=== PATIENT | female | born 1945 | race Caucasian/White ===

== ENCOUNTER → 2018-02-10 | Outpatient (CLI) | payer MEDICARE ==
--- NOTE | 2018-02-10 15:15 | US ---
EXAMINATION TYPE: US carotid duplex BILAT DATE OF EXAM: 02/10/2018 COMPARISON: NONE CLINICAL HISTORY: I25.10 Coronary artery disease,I10 Hypertension. No hx of TIA or stroke. HTN contr olled with meds. Bilateral mesh inserted in CCA's per patient x 3 years ago due to blockage. EXAM MEASUREMENTS: RIGHT: Peak Systolic Velocity (PSV) cm/sec ----- Right CCA: 61.0 ----- Right ICA: 49.6 ----- Right ECA: 66.9 ICA/CCA ratio: 0.8 RIGHT: End Diastole cm/sec ----- Right CCA: 22.6 ----- Right ICA: 24.3 ----- Right ECA: 9.8 LEFT: Peak Systolic Velocity (PSV) cm/sec ----- Left CCA: 56.6 ----- Left ICA: 86.6 ----- Left ECA: 61.4 ICA/CCA ratio: 1.5 LEFT: End Diastole cm/sec ----- Left CCA: 7.8 ----- Left ICA: 24.5 ----- Left ECA: 0.0 VERTEBRALS (direction of flow): Right Vertebral: Antegrade Left Vertebral: Antegrade Rhythm: Normal No elevated velocities or significant stenosis. Bilateral wall thickening. Plaque seen in bilateral CCA, bulbs and right ECA. IMPRESSION: No elevated velocities or significant stenosis. Bilateral wall thickening. Plaque seen in bilateral CCA, bulbs and right ECA. Criteria for Assigning % of Stenosis / Diameter reduction (Estimation based on the indirect measurements of the internal carotid artery velocities (ICA PSV). 1. Normal (no stenosis)=ICA PSV < 125 cm/s: ratio < 2.0: ICA EDV<40 cm/s. 2. Less than 50% stenosis=ICA PSV < 125 cm/s: ratio < 2.0: ICA EDV<40 cm/s. 3. 50 to 69% stenosis=ICA PSV of 125 to 230 cm/s: ration 2.0 ? 4.0: ICA EDV 40-100 cm/s. 4. Greater than 70% stenosis to near occlusion= ICA PSV > 230 cm/s: ratio > 4.0: ICA EDV > 100 cm/s. 5. Near occlusion= ICA PSV velocities may be low or undetectable: variable ratio and ICA EDV. 6. Total occlusion=unable to detect flow.
== END | disposition home or self-care (01) ==
LOC: RADECHMAIN 14:01
PROVIDERS: ATTEND Internal Medicine Cardiovascular Disease
DX: I65.23 Occlusion and stenosis of bilateral carotid arteries (principal); I25.10 Atherosclerotic heart disease of native coronary artery without angina pectoris; I10 Essential (primary) hypertension
CPT/HCPCS: 93880

== ENCOUNTER → 2018-02-15 | Outpatient (CLI) | payer MEDICARE ==
--- NOTE | 2018-02-15 15:23 | ECHOF ---
Referral Reason:I25.10 Coronary artery disease,I10 Hypertension MEASUREMENTS -------- HEIGHT: 170.2 cm WEIGHT: 84.8 kg BP: IVSd: 1.3 cm (0.6 - 1.1) LVIDd: 3.9 cm (3.9 - 5.3) LVPWd: 1.2 cm (0.6 - 1.1) IVSs: 2.1 cm LVIDs: 1.5 cm LVPWs: 2.2 cm Ao Diam: 2.7 cm (2.0 - 3.7) AV Cusp: 0.9 cm (1.5 - 2.6) LA Diam: 3.3 cm (2.7 - 3.8) MV EXCURSION: 12.495 mm (> 18.000) MV EF SLOPE: 35 mm/s (70 - 150) EPSS: 1.0 cm MV E Jair: 1.55 m/s MV DecT: 312 ms MV A Jair: 1.32 m/s MV E/A Ratio: 1.17 AV maxP.17 mmHg AV meanP.22 mmHg AR PHT: 119 ms RAP: 5.00 mmHg RVSP: 17.04 mmHg FINDINGS -------- Sinus rhythm. This was a technically good study. The left ventricular size is normal. There is mild concentric left ventricular hypertrophy. Overa ll left ventricular systolic function is normal with, an EF between 55 - 60 %. The right ventricle is normal in size and function. The left atrium is normal in size. The right atrium is normal in size. Aortic valve is trileaflet and is moderately thickened. There is mild aortic regurgitation. There is moderate aortic stenosis present. Peak/mean gradient across the Aortic Valve is 31.17mmHg / 19. 22mmHg. The peak and mean MV gradients are 19.39mmHg 5.47mmHg as measured by doppler. Astq-ro-rddmhwbh mitr al stenosis. Trace tricuspid regurgitation present. The right ventricular systolic pressure, as measured by Dopp ler, is 17.04mmHg. Pulmonic valve appears structurally normal. The aortic root size is normal. Normal inferior vena cava with normal inspiratory collapse consistent with estimated right atrial pre ssure of 5 mmHg. The pericardium is normal. CONCLUSIONS -------- 1. Sinus rhythm. 2. This was a technically good study. 3. The left ventricular size is normal. 4. There is mild concentric left ventricular hypertrophy. 5. Overall left ventricular systolic function is normal with, an EF between 55 - 60 %. 6. The right ventricle is normal in size and function. 7. The left atrium is normal in size. 8. The right atrium is normal in size. 9. Aortic valve is trileaflet and is moderately thickened. 10. There is mild aortic regurgitation. 11. There is moderate aortic stenosis present. 12. Peak/mean gradient across the Aortic Valve is 31.17mmHg / 19.22mmHg. 13. The peak and mean MV gradients are 19.39mmHg 5.47mmHg as measured by doppler. 14. Lnre-bz-sxjonxyy mitral stenosis. 15. Trace tricuspid regurgitation present. 16. The right ventricular systolic pressure, as measured by Doppler, is 17.04mmHg. 17. Pulmonic valve appears structurally normal. 18. The aortic root size is normal. 19. Normal inferior vena cava with normal inspiratory collapse consistent with estimated right atrial pressure of 5 mmHg. 20. The pericardium is normal. [employer] OFFICER: Britt Strickland RDCS
== END | disposition home or self-care (01) ==
LOC: RADECHMAIN 12:45
PROVIDERS: ATTEND Internal Medicine Cardiovascular Disease
DX: I35.0 Nonrheumatic aortic (valve) stenosis (principal); I05.0 Rheumatic mitral stenosis; I25.10 Atherosclerotic heart disease of native coronary artery without angina pectoris; I10 Essential (primary) hypertension; I65.29 Occlusion and stenosis of unspecified carotid artery
CPT/HCPCS: 93306

== ENCOUNTER → 2018-04-11 | Outpatient (CLI) | payer MEDICARE ==
[~2018-04-11] MED LIST: HEPARIN SODIUM,PORCINE 5,000 UNIT/ML 1 ML VIAL SQ ONE
--- NOTE | 2018-04-11 11:46 | MM ---
Reason for exam: additional evaluation requested from prior study. Last mammogram was performed 1 year and 1 month ago. History: Patient is postmenopausal. Family history of breast cancer in mother at age 62. Physical Findings: Nurse did not find any significant physical abnormalities on exam. MG 3D Diag Mammo W/Cad BRENNEN Bilateral CC and MLO view(s) were taken. Prior study comparison: March 03, 2017, mammogram. March 02, 2016, mammogram. The breast tissue is heterogeneously dense. This may lower the sensitivity of mammography. Benign appearing bilateral calcifications. No suspicious abnormality. No significant new findings when compared with previous films. These results were verbally communicated with the patient and result sheet given to the patient on 04/11/18. ASSESSMENT: Benign, BI-RAD 2 RECOMMENDATION: Routine screening mammogram of both breasts in 1 year.
== END | disposition home or self-care (01) ==
LOC: RADMAMWWP 10:42
PROVIDERS: ATTEND Surgery
DX: R92.8 Other abnormal and inconclusive findings on diagnostic imaging of breast (principal)
CPT/HCPCS: 77066; G0279; 77062

== ENCOUNTER → 2018-04-20 | Outpatient (CLI) | payer MEDICARE | END | disposition home or self-care (01) | DX: Z53.9 Procedure and treatment not carried out, unspecified reason (principal) ==

== ENCOUNTER → 2018-04-24 | Outpatient (CLI) | payer MEDICARE ==
--- NOTE | 2018-04-24 14:47 | XR ---
EXAMINATION TYPE: XR foot complete LT DATE OF EXAM: 04/24/2018 COMPARISON: NONE HISTORY: 72-year-old female pain and superficial foreign body left foot, calcaneus area TECHNIQUE: 3 views FINDINGS: No acute fracture, subluxation, or dislocation seen. Tiny plantar and posterior calcaneal spurs. No r etained radiopaque foreign body seen. Mild degenerative change first MTP joint. IMPRESSION: No retained radiopaque foreign body identified.
== END | disposition home or self-care (01) ==
LOC: RADXRMAIN 11:57
PROVIDERS: ATTEND Podiatrist Foot Surgery
DX: S90.852A Superficial foreign body, left foot, initial encounter (principal)

== ENCOUNTER 2018-12-13 07:32 | Day surgery (SDC) | payer MEDICARE ==
[~2018-12-13 07:32] MED LIST changes: -HEPARIN SODIUM,PORCINE 5,000 UNIT/ML 1 ML VIAL SQ ONE; +LACTATED RINGERS 1,000 ML IV SCH
[2018-12-13 08:02] VITALS: TEMP 97
[2018-12-13 08:24] LABS: Glucose,Whole Blood 148 mg/dL (75-99)
[2018-12-13] MEDS ORDERED: PROPOFOL 10 MG/ML 20 ML VIAL IV ONE (08:35)
--- NOTE | 2018-12-13 08:45 | P.GSHP ---
History of Present Illness H&P Date: 12/13/18 CHIEF COMPLAINT: Colon screen HISTORY OF PRESENT ILLNESS: The patient is a 73-year-old female who presents for colon screen. Lower endoscopy was offered for further evaluation and management. PAST MEDICAL HISTORY: Please see list. PAST SURGICAL HISTORY: Please see list. MEDICATIONS: Please see list. ALLERGIES: Please see list. SOCIAL HISTORY: No illicit drug use FAMILY HISTORY: No reports of Crohn disease or ulcerative colitis. REVIEW OF ORGAN SYSTEMS: CONSTITUTIONAL: No reports of fevers or chills. PHYSICAL EXAM: VITAL SIGNS: Stable GENERAL: Well-developed pleasant in no acute distress. HEENT: No scleral icterus. Extraocular movements grossly intact. Moist buccal mucosa. NECK: Supple without lymphadenopathy. CHEST: Unlabored respirations. Equal bilateral excursions. CARDIOVASCULAR: Regular rate and rhythm. Distal 2+ pulses. ABDOMEN: Soft, nontender, nondistended. MUSCULOSKELETAL: No clubbing, cyanosis, or edema. ASSESSMENT: 1. Colon screen. PLAN: 1. Recommend proceeding with a lower endoscopy Past Medical History Past Medical History: Coronary Artery Disease (CAD), Diabetes Mellitus, Hyperlipidemia, Hypertension, Myocardial Infarction ([place]) Additional Past Medical History / Comment(s): hx ulcers, hx polyps, silent [place] Last Myocardial Infarction Date:: 2008 History of Any Multi-Drug Resistant Organisms: None Reported Past Surgical History: Coronary Bypass/CABG, Heart Catheterization, Tubal Ligation Additional Past Surgical History / Comment(s): triple bypass, carlene carotid endarterectomy with mesh, valve repair, states no stents in heart, loop recorder removed in 2017, carlene cataracts Past Anesthesia/Blood Transfusion Reactions: No Reported Reaction Date of Last Stent Placement:: 2009 Type of Cardiac Device: Loop Device Placement Date:: 01/22 Past Psychological History: No Psychological Hx Reported Smoking Status: Former smoker Past Alcohol Use History: None Reported Additional Past Alcohol Use History / Comment(s): quit smoking in 2009 smoked from teens Past Drug Use History: None Reported - Past Family History Mother Family Medical History: Cancer Additional Family Medical History / Comment(s): BREAST Medications and Allergies Home Medications Medication Instructions Recorded Confirmed Type Carvedilol [Coreg] 12.5 mg PO BID 03/11/14 12/13/18 History Famotidine [Pepcid] 20 mg PO DAILY 03/11/14 12/13/18 History Triple Flex 2 tab PO DAILY 03/11/14 12/13/18 History metFORMIN HCL [Glucophage] 500 mg PO BID 03/11/14 12/13/18 History Losartan/Hydrochlorothiazide 1 each PO DAILY 09/25/14 12/13/18 History [Losartan-Hctz 100-25 mg Tab] Ascorbic Acid [Vitamin C] 1,000 mg PO DAILY 04/20/18 12/13/18 History Cholecalciferol [Vitamin D3] 1,000 unit PO DAILY 04/20/18 12/13/18 History Vit A/Vit C/Vit E/Zinc/Copper 2 cap PO DAILY 04/20/18 12/08/18 History [ICAPS SOFTGEL] Nitroglycerin Sl Tabs [Nitrostat] 0.4 mg SUBLINGUAL Q5M PRN 10/13/18 12/08/18 History [place]-3/Dha/Epa/Fish Oil [Fish Oil 1 each PO DAILY 10/13/18 12/08/18 History 500 mg Softgel] Ezetimibe [Zetia] 10 mg PO DAILY 12/08/18 12/08/18 History Insulin Aspart [NovoLOG] 0 units SQ BID PRN 12/08/18 12/13/18 History Allergies Allergy/AdvReac Type Severity Reaction Status Date / Time furosemide Allergy Unknown Unknown Verified 12/13/18 07:57 hydrocodone bitartrate Allergy Unknown Hallucinati Verified 12/13/18 07:57 [From Vicodin] ons pravastatin Allergy Unknown Itching, Verified 12/13/18 07:57 face swelling simvastatin Allergy Unknown Itching, Verified 12/13/18 07:57 face swelling rosuvastatin calcium Allergy fainting Verified 12/13/18 07:57 [From Crestor] Lwwlnhd-Hmp-Ekt Reductase Allergy itching, Verified 12/13/18 07:57 Inhibitor face swelling flu vaccine Allergy Unknown Uncoded 12/13/18 07:57 Surgical - Exam Vital Signs Temp Pulse Resp BP Pulse Ox 97.0 F L 86 17 122/68 97 12/13/18 08:01 12/13/18 08:01 12/13/18 08:01 12/13/18 08:01 12/13/18 08:01 Results - Labs Abnormal Lab Results - Last 24 Hours (Table) 12/13/18 Range/Units 08:10 POC Glucose (mg/dL) 148 H (75-99) mg/dL
[2018-12-13 09:16] VITALS: RESP 16
--- NOTE | 2018-12-13 09:19 | P.PCN ---
Date of Procedure: 12/13/18 Description of Procedure: PREOPERATIVE DIAGNOSIS: Personal history of colon polyps. POSTOPERATIVE DIAGNOSIS: Personal history of colon polyps. Multiple tubular adenomas throughout the colon. External hemorrhoids, grade 3. Sigmoid diverticulosis OPERATION: Colonoscopy to the ileocecal valve and appendiceal orifice. Colonoscopy with multiple cold forceps biopsies. SURGEON: Diamond Shaw MD. ANESTHESIA: MAC. INDICATIONS: The patient is a 73-year-old female who presents for colonoscopy screening. Last colonoscopy 4 years ago. Benefits and risks were described and informed consent was obtained. DESCRIPTION OF PROCEDURE: The patient had undergone Gatorade, MiraLAX and Dulcolax prep. She had been brought into the operating room and laid in the left lateral decubitus position. After adequate intravenous sedation, the rectum was examined with 2% lidocaine jelly. External hemorrhoids were encountered. The rectal tone was within normal limits. No lesions were palpated in the rectal vault. An Olympus colonoscope was advanced until the ileocecal valve and appendiceal orifice were clearly viewed. The prep was fair with visualization of the mucosal folds. The scope was removed with visualization of each mucosal fold. Scattered diverticulosis was encountered. Multiple colonic polyps were found and cold forcep biopsy. No evidence of focal colitis was found. Retroflexion of the scope demonstrated grade 3 internal hemorrhoids without active bleeding or inflammation. The colon was desufflated. The patient had tolerated the procedure well. Withdrawal time was over 6 minutes. FINDINGS: Internal hemorrhoids, grade 3 External hemorrhoids, grade 3. No arteriovenous malformations. Sigmoid diverticulosis, moderate. Removal of 2 polyps: - Cold forceps biopsy at 25 cm from the anal verge, 4 mm polyp. - Cold forceps biopsy at hepatic flexure colon, 4 mm polyp. No focal colitis. RECOMMENDATIONS: Repeat colonoscopy 3 years, 2021. Plan - Discharge Summary Discharge Rx Participant: Yes New Discharge Prescriptions: No Action metFORMIN HCL [Glucophage] 500 mg PO BID Famotidine [Pepcid] 20 mg PO DAILY Carvedilol [Coreg] 12.5 mg PO BID Triple Flex 2 tab PO DAILY Losartan/Hydrochlorothiazide [Losartan-Hctz 100-25 mg Tab] 1 each PO DAILY Vit A/Vit C/Vit E/Zinc/Copper [ICAPS SOFTGEL] 2 cap PO DAILY Cholecalciferol [Vitamin D3] 1,000 unit PO DAILY Ascorbic Acid [Vitamin C] 1,000 mg PO DAILY Nitroglycerin Sl Tabs [Nitrostat] 0.4 mg SUBLINGUAL Q5M PRN PRN Reason: Angina [place]-3/Dha/Epa/Fish Oil [Fish Oil 500 mg Softgel] 1 each PO DAILY Ezetimibe [Zetia] 10 mg PO DAILY Insulin Aspart [NovoLOG] 0 units SQ BID PRN PRN Reason: hyperglycemia Discharge Medication List Carvedilol [Coreg] 12.5 mg PO BID 03/11/14 [History] Famotidine [Pepcid] 20 mg PO DAILY 03/11/14 [History] Triple Flex 2 tab PO DAILY 03/11/14 [History] metFORMIN HCL [Glucophage] 500 mg PO BID 03/11/14 [History] Losartan/Hydrochlorothiazide [Losartan-Hctz 100-25 mg Tab] 1 each PO DAILY 09/25 [History] Ascorbic Acid [Vitamin C] 1,000 mg PO DAILY 04/20/18 [History] Cholecalciferol [Vitamin D3] 1,000 unit PO DAILY 04/20/18 [History] Vit A/Vit C/Vit E/Zinc/Copper [ICAPS SOFTGEL] 2 cap PO DAILY 04/20/18 [History] Nitroglycerin Sl Tabs [Nitrostat] 0.4 mg SUBLINGUAL Q5M PRN 10/13/18 [History] [place]-3/Dha/Epa/Fish Oil [Fish Oil 500 mg Softgel] 1 each PO DAILY 10/13/18 [ History] Ezetimibe [Zetia] 10 mg PO DAILY 12/08/18 [History] Insulin Aspart [NovoLOG] 0 units SQ BID PRN 12/08/18 [History] Follow up Appointment(s)/Referral(s): Diamond Shaw MD [STAFF PHYSICIAN] - As Needed Patient Instructions/Handouts: Colorectal Polyps (GEN), Hemorrhoids (DC), Diverticulosis (DC), Diverticulosis Diet (GEN) Activity/Diet/Wound Care/Special Instructions: Repeat colonoscopy in 3 years, 2021 Discharge Disposition: HOME SELF-CARE
[2018-12-13 09:36] VITALS: BP 147/70; PULSE 84
== END 2018-12-13 10:16 | disposition home or self-care (01) ==
LOC: ORWHC2ENDO 07:32
PROVIDERS: ATTEND Surgery Plastic and Reconstructive Surgery
DX: Z12.11 Encounter for screening for malignant neoplasm of colon (principal); K63.5 Polyp of colon; K64.2 Third degree hemorrhoids; K64.8 Other hemorrhoids; K57.30 Diverticulosis of large intestine without perforation or abscess without bleeding; Z86.010 Personal history of colon polyps; I25.10 Atherosclerotic heart disease of native coronary artery without angina pectoris; E11.9 Type 2 diabetes mellitus without complications; E78.5 Hyperlipidemia, unspecified; I10 Essential (primary) hypertension; I25.2 Old myocardial infarction; Z95.1 Presence of aortocoronary bypass graft; Z98.61 Coronary angioplasty status; Z87.891 Personal history of nicotine dependence; Z80.3 Family history of malignant neoplasm of breast; Z79.4 Long term (current) use of insulin; Z79.899 Other long term (current) drug therapy; Z88.5 Allergy status to narcotic agent; Z88.7 Allergy status to serum and vaccine; Z88.8 Allergy status to other drugs, medicaments and biological substances
CPT/HCPCS: 88305; 45380; J2704

== ENCOUNTER 2019-02-15 11:49 | Emergency (ER) | payer MEDICARE ==
[2019-02-15] MEDS ORDERED: MECLIZINE 12.5 MG TAB PO STA (12:26)
[2019-02-15] MEDS ORDERED: SODIUM CHLORIDE 0.9% 500 ML 500 ML IV STA (12:26)
--- NOTE | 2019-02-15 12:32 | ED ---
Dizziness HPI - General Chief Complaint: Dizziness Stated Complaint: Dizzy, UTI, abnormal EKG Time Seen by Provider: 02/15/19 12:16 Source: patient Mode of arrival: ambulatory Limitations: no limitations - History of Present Illness Initial Comments: 73-year-old female patient presents to the emergency department today for evaluation of dizziness and possible urinary tract infection. Patient states she has been having burning with urination and frequency of urination since Tuesday. Patient states that today when she woke up to use the restroom she had a feeling of lightheadedness. Patient states that this happened 2-3 times as miser should call her physician was in to see them. States that she had an abnormal EKG so they sent her here for further evaluation. Patient states that the dizziness seems to have resolved. States it was present only with standing. She denies any spinning but states that she felt unsteady as she was walking. She denies any numbness, tingling, weakness to her extremities. Denies any chest pain or shortness of breath. Denies headache, blurred, or double vision. Patient denies any recent rash, abdominal pain, nausea, vomiting, diarrhea, constipation, back pain, headache, visual changes, or any other complaints. - Related Data Home Medications Medication Instructions Recorded Confirmed Famotidine [Pepcid] 20 mg PO HS 03/11/14 02/15/19 Triple Flex 2 tab PO DAILY 03/11/14 02/15/19 metFORMIN HCL [Glucophage] 500 mg PO BID 03/11/14 02/15/19 Losartan/Hydrochlorothiazide 1 tab PO HS 09/25/14 02/15/19 [Losartan-Hctz 100-25 mg Tab] Ascorbic Acid [Vitamin C] 1,000 mg PO DAILY 04/20/18 02/15/19 Cholecalciferol [Vitamin D3] 1,000 unit PO DAILY 04/20/18 02/15/19 Vit A/Vit C/Vit E/Zinc/Copper 2 cap PO DAILY 04/20/18 02/15/19 [ICAPS SOFTGEL] Nitroglycerin Sl Tabs [Nitrostat] 0.4 mg SUBLINGUAL Q5M PRN 10/13/18 02/15/19 Insulin Aspart [NovoLOG] 5 units SQ BID PRN 12/08/18 02/15/19 Carvedilol [Coreg] 25 mg PO BID 02/15/19 02/15/19 Previous Rx's Medication Instructions Recorded Cephalexin [Keflex] 500 mg PO Q6H #28 cap 02/15/19 Allergies Allergy/AdvReac Type Severity Reaction Status Date / Time furosemide Allergy Unknown Unknown Verified 02/15/19 12:06 hydrocodone bitartrate Allergy Unknown Hallucinati Verified 02/15/19 12:06 [From Vicodin] ons pravastatin Allergy Unknown Itching, Verified 02/15/19 12:06 face swelling simvastatin Allergy Unknown Itching, Verified 02/15/19 12:06 face swelling rosuvastatin calcium Allergy fainting Verified 02/15/19 12:06 [From Crestor] [id number]-[id number] Reductase Allergy itching, Verified 02/15/19 12:06 Inhibitor face swelling flu vaccine Allergy Unknown Uncoded 12/13/18 07:57 Review of Systems ROS Statement: Those systems with pertinent positive or pertinent negative responses have been documented in the HPI. ROS Other: All systems not noted in ROS Statement are negative. Past Medical History Past Medical History: Coronary Artery Disease (CAD), Diabetes Mellitus, Hyperlipidemia, Hypertension, Myocardial Infarction ([place]) Additional Past Medical History / Comment(s): hx ulcers, hx polyps, silent [place] Last Myocardial Infarction Date:: 2008 History of Any Multi-Drug Resistant Organisms: None Reported Past Surgical History: Coronary Bypass/CABG, Heart Catheterization, Tubal Ligation Additional Past Surgical History / Comment(s): triple bypass, carlene carotid endarterectomy with mesh, valve repair, states no stents in heart, loop re cornelio removed in 2018, carlene cataracts Past Anesthesia/Blood Transfusion Reactions: No Reported Reaction Date of Last Stent Placement:: 2009 Type of Cardiac Device: Loop Device Placement Date:: 01/22 Past Psychological History: No Psychological Hx Reported Smoking Status: Former smoker Past Alcohol Use History: None Reported Past Drug Use History: None Reported - Past Family History Mother Family Medical History: Cancer Additional Family Medical History / Comment(s): BREAST General Exam Limitations: no limitations General appearance: alert, in no apparent distress, other (Physical well- developed, well-nourished elderly female patient in no acute distress. Vital signs upon presentation are temperature 98.2F, pulse 84, respirations 18, blood pressure 164/84, pulse ox 95% on room air.) Eye exam: Present: normal appearance, PERRL, EOMI. Absent: scleral icterus, conjunctival injection, nystagmus, periorbital swelling ENT exam: Present: normal exam, normal oropharynx, mucous membranes moist Respiratory exam: Present: normal lung sounds bilaterally. Absent: respiratory distress, wheezes, rales, rhonchi, stridor Cardiovascular Exam: Present: regular rate, normal rhythm, normal heart sounds. Absent: systolic murmur, diastolic murmur, rubs, gallop, clicks GI/Abdominal exam: Present: soft, normal bowel sounds. Absent: distended, tenderness, guarding, rebound, rigid Neurological exam: Present: alert, oriented X3, CN II-XII intact Expanded Speech: Present: fluid speech Cranial nerves: EOM's Intact: Normal Cerebellar function: Finger to Nose: Normal Motor strength exam: RUE: 5, LUE: 5, RLE: 5, LLE: 5 Psychiatric exam: Present: normal affect, normal mood Skin exam: Present: warm, dry, intact, normal color. Absent: rash Course Vital Signs 02/15/19 02/15/19 02/15/19 11:51 13:00 14:56 Temperature 98.2 F 97.9 F Pulse Rate 84 87 80 Respiratory 18 18 16 Rate Blood Pressure 164/84 121/78 160/86 O2 Sat by Pulse 95 96 96 Oximetry EKG Findings - EKG Comments: EKG Findings:: EKG obtained at 1239 shows sinus rhythm with a first-degree AV block, ventricular rate is 85, MA interval 220, QRS duration 114, QT 372, QTc 442. Study was compared to EKG obtained at 2013, no significant changes. Medical Decision Making - Medical Decision Making 73-year-old female patient presents to the emergency department today for evaluation of being lightheaded. Patient states she's had several episodes since waking this morning. Upon arrival she is symptom-free. Patient is also concerned she may have a urinary tract infection. Physical examination was relatively unremarkable. She is neurologically intact with no focal deficits. No CVA tenderness. Vital signs are stable. Labs reviewed and did reveal evidence for urinary tract infection with positive nitrite and white blood cells in the urine. She was started on Keflex. She is instructed to increase fluids. She is instructed to follow-up with her primary care physician for recheck in 1-2 days. Return parameters discussed in detail. She verbalizes understanding and agrees with this plan. - Lab Data Result diagrams: 02/15/19 12:43 02/15/19 12:43 Lab Results 02/15/19 02/15/19 02/15/19 Range/Units 12:43 12:43 12:43 WBC 7.6 (3.8-10.6) k/uL RBC 4.53 (3.80-5.40) m/uL Hgb 13.1 (11.4-16.0) gm/dL Hct 40.5 (34.0-46.0) % MCV 89.4 (80.0-100.0) fL MCH 28.9 (25.0-35.0) pg MCHC 32.4 (31.0-37.0) g/dL RDW 13.4 (11.5-15.5) % Plt Count 247 (150-450) k/uL Neutrophils % 74 % Lymphocytes % 13 % Monocytes % 7 % Eosinophils % 2 % Basophils % 1 % Neutrophils # 5.6 (1.3-7.7) k/uL Lymphocytes # 1.0 (1.0-4.8) k/uL Monocytes # 0.5 (0-1.0) k/uL Eosinophils # 0.2 (0-0.7) k/uL Basophils # 0.0 (0-0.2) k/uL PT 10.4 (9.0-12.0) sec INR 1.0 (<1.2) Sodium 137 (137-145) mmol/L Potassium 4.1 (3.5-5.1) mmol/L Chloride 101 (98-107) mmol/L Carbon Dioxide 31 H (22-30) mmol/L Anion Gap 5 mmol/L BUN 22 H (7-17) mg/dL Creatinine 0.68 (0.52-1.04) mg/dL Est GFR (CKD-EPI)AfAm >90 (>60 ml/min/1.73 sqM) Est GFR (CKD-EPI)NonAf 86 (>60 ml/min/1.73 sqM) Glucose 92 (74-99) mg/dL Calcium 10.0 (8.4-10.2) mg/dL Total Bilirubin 0.8 (0.2-1.3) mg/dL AST 23 (14-36) U/L ALT 28 (9-52) U/L Alkaline Phosphatase 48 (38-126) U/L Troponin I (0.000-0.034) ng/mL Total Protein 7.6 (6.3-8.2) g/dL Albumin 4.5 (3.5-5.0) g/dL Urine Color Urine Appearance (Clear) Urine pH (5.0-8.0) Ur Specific [place] (1.001-1.035) Urine Protein (Negative) Urine Glucose (UA) (Negative) Urine Ketones (Negative) Urine Blood (Negative) Urine Nitrite (Negative) Urine Bilirubin (Negative) Urine Urobilinogen (<2.0) mg/dL Ur Leukocyte Esterase (Negative) Urine RBC (0-5) /hpf Urine WBC (0-5) /hpf Ur Squamous Epith Cells (0-4) /hpf Amorphous Sediment (None) /hpf Urine Bacteria (None) /hpf Urine Mucus (None) /hpf 02/15/19 02/15/19 Range/Units 12:43 13:49 WBC (3.8-10.6) k/uL RBC (3.80-5.40) m/uL Hgb (11.4-16.0) gm/dL Hct (34.0-46.0) % MCV (80.0-100.0) fL MCH (25.0-35.0) pg MCHC (31.0-37.0) g/dL RDW (11.5-15.5) % Plt Count (150-450) k/uL Neutrophils % % Lymphocytes % % Monocytes % % Eosinophils % % Basophils % % Neutrophils # (1.3-7.7) k/uL Lymphocytes # (1.0-4.8) k/uL Monocytes # (0-1.0) k/uL Eosinophils # (0-0.7) k/uL Basophils # (0-0.2) k/uL PT (9.0-12.0) sec INR (<1.2) Sodium (137-145) mmol/L Potassium (3.5-5.1) mmol/L Chloride (98-107) mmol/L Carbon Dioxide (22-30) mmol/L Anion Gap mmol/L BUN (7-17) mg/dL Creatinine (0.52-1.04) mg/dL Est GFR (CKD-EPI)AfAm (>60 ml/min/1.73 sqM) Est GFR (CKD-EPI)NonAf (>60 ml/min/1.73 sqM) Glucose (74-99) mg/dL Calcium (8.4-10.2) mg/dL Total Bilirubin (0.2-1.3) mg/dL AST (14-36) U/L ALT (9-52) U/L Alkaline Phosphatase (38-126) U/L Troponin I <0.012 (0.000-0.034) ng/mL Total Protein (6.3-8.2) g/dL Albumin (3.5-5.0) g/dL Urine Color Yellow Urine Appearance Clear (Clear) Urine pH 7.0 (5.0-8.0) Ur Specific [place] 1.014 (1.001-1.035) Urine Protein Negative (Negative) Urine Glucose (UA) Negative (Negative) Urine Ketones Negative (Negative) Urine Blood Negative (Negative) Urine Nitrite Positive H (Negative) Urine Bilirubin Negative (Negative) Urine Urobilinogen <2.0 (<2.0) mg/dL Ur Leukocyte Esterase Moderate H (Negative) Urine RBC 10 H (0-5) /hpf Urine WBC 11 H (0-5) /hpf Ur Squamous Epith Cells 3 (0-4) /hpf Amorphous Sediment Rare H (None) /hpf Urine Bacteria Occasional H (None) /hpf Urine Mucus Rare H (None) /hpf Disposition Clinical Impression: Urinary tract infection, Dehydration Disposition: HOME SELF-CARE Condition: Good Instructions (If sedation given, give patient instructions): Dehydration (ED), Urinary Tract Infection in Women (ED), Dizziness (ED) Additional Instructions: Increase fluids. Complete antibiotic prescription in full. Follow-up with your primary care physician for recheck in 1-2 days. Return to the emergency department immediately for any new, worsening, or concerning symptoms. Prescriptions: Cephalexin [Keflex] 500 mg PO Q6H #28 cap Is patient prescribed a controlled substance at d/c from ED?: No Referrals: Yayo Mckeon MD [Primary Care Provider] - 1-2 days Time of Disposition: 14:42
[2019-02-15 13:03] LABS: Basophils % (A) 1 %; Eosinophils # (A) 0.2 k/uL (0-0.7); Eosinophils % (A) 2 %; HCT 40.5 % (34.0-46.0); HGB 13.1 gm/dL (11.4-16.0); Lymphocytes % (A) 13 %; MCH 28.9 pg (25.0-35.0); MCHC 32.4 g/dL (31.0-37.0); MCV 89.4 fL (80.0-100.0); Monocytes # (A) 0.5 k/uL (0-1.0); Monocytes % (A) 7 %; Neutrophils # (A) 5.6 k/uL (1.3-7.7); Neutrophils % (A) 74 %; Platelet Count 247 k/uL (150-450); RBC 4.53 m/uL (3.80-5.40); RDW 13.4 % (11.5-15.5); WBC 7.6 k/uL (3.8-10.6)
[2019-02-15 13:04] LABS: Prothrombin Time 10.4 sec (9.0-12.0)
[2019-02-15 13:12] LABS: ALT 28 U/L (9-52); AST 23 U/L (14-36); Albumin 4.5 g/dL (3.5-5.0); Alkaline Phosphatase 48 U/L (38-126); Anion Gap 5 mmol/L; Blood Urea Nitrogen 22 mg/dL (7-17); Carbon Dioxide 31 mmol/L (22-30); Chloride 101 mmol/L (98-107); Glucose 92 mg/dL (74-99); Potassium 4.1 mmol/L (3.5-5.1); Sodium 137 mmol/L (137-145); Total Bilirubin 0.8 mg/dL (0.2-1.3); Total Protein 7.6 g/dL (6.3-8.2)
[2019-02-15 14:12] LABS: Amorphous Sediment,Urine Rare /hpf; Appearance,Urine Clear (Clear); Bacteria,Urine Occasional /hpf; Bilirubin,Urine Negative (Negative); Blood,Urine Negative (Negative); Color,Urine Yellow; Glucose,Urine (UA) Negative (Negative); Ketones,Urine Negative (Negative); Leukocyte Esterase,Urine Moderate (Negative); Mucus,Urine Rare /hpf; Nitrite,Urine Positive (Negative); Protein,Urine Negative (Negative); RBC,Urine 10 /hpf (0-5); Specific Gravity,Urine 1.014 (1.001-1.035); Squamous Epithelial Cell,Urine 3 /hpf (0-4); Urobilinogen,Urine <2.0 mg/dL (<2.0); WBC,Urine 11 /hpf (0-5)
[2019-02-15] MEDS ORDERED: CEPHALEXIN 500MG STARTER PACK 4 CAP BTL PO STA (14:41)
[2019-02-15 14:57] VITALS: TEMP 97.9
[2019-02-15 15:20] VITALS: BP 172/81; PULSE 82; RESP 18
== END 2019-02-15 15:19 | disposition home or self-care (01) ==
LOC: EC 11:49
DX: E86.0 Dehydration (principal); N39.0 Urinary tract infection, site not specified; I25.10 Atherosclerotic heart disease of native coronary artery without angina pectoris; E11.9 Type 2 diabetes mellitus without complications; I10 Essential (primary) hypertension; I25.2 Old myocardial infarction; Z87.891 Personal history of nicotine dependence; Z88.5 Allergy status to narcotic agent; Z88.7 Allergy status to serum and vaccine; Z88.8 Allergy status to other drugs, medicaments and biological substances; Z79.84 Long term (current) use of oral hypoglycemic drugs; Z79.899 Other long term (current) drug therapy; Z87.19 Personal history of other diseases of the digestive system; Z95.1 Presence of aortocoronary bypass graft; Z95.818 Presence of other cardiac implants and grafts
CPT/HCPCS: 36415; 80053; 81001; 84484; 85025; 85610; 93005; 99284

== ENCOUNTER → 2019-04-13 | Outpatient (CLI) | payer MEDICARE ==
--- NOTE | 2019-04-17 08:15 | MM ---
Reason for exam: screening (asymptomatic). Last mammogram was performed 1 year ago. History: Patient is postmenopausal. Family history of breast cancer in mother at age 62. Physical Findings: A clinical breast exam by your physician is recommended on an annual basis and results should be correlated with mammographic findings. MG 3D Screening Mammo W/Cad Bilateral CC and MLO view(s) were taken. Prior study comparison: April 11, 2018, bilateral MG 3d diag mammo w/cad BRENN[facility]. March 03, 2017, mammogram. The breast tissue is heterogeneously dense. This may lower the sensitivity of mammography. Focal asymmetry outer right CC. This finding is changed when compared with previous exams. ASSESSMENT: Incomplete: need additional imaging evaluation, BI-RAD 0 RECOMMENDATION: Special view mammogram of the right breast. If lesion persists on supplemental views, image directed ultrasound is recommended. [facility] will attempt to contact patient to return for supplemental views and ultrasound if indicated.
== END | disposition home or self-care (01) ==
LOC: RADMAMWWP 09:52
PROVIDERS: ATTEND Surgery
DX: Z12.31 Encounter for screening mammogram for malignant neoplasm of breast (principal)
CPT/HCPCS: 77063; 77067

== ENCOUNTER → 2019-04-19 | Outpatient (CLI) | payer MEDICARE ==
--- NOTE | 2019-04-19 10:51 | MM ---
Reason for exam: additional evaluation requested from abnormal screening. Last mammogram was performed less than 1 month ago. History: Patient is postmenopausal. Family history of breast cancer in mother at age 62. Physical Findings: Nurse did not find any significant physical abnormalities on exam. MG 3D Work Up W/Cad RT Spot compression CC view(s) were taken of the right breast. Prior study comparison: April 13, 2019, bilateral MG 3d screening mammo w/cad. April 11, 2018, bilateral MG 3d diag mammo w/cad BRENNEN. The breast tissue is heterogeneously dense. This may lower the sensitivity of mammography. The previously seen abnormality resolves on additional views and appears as fibroglandular tissue compatible with summation. No suspicious abnormality. These results were verbally communicated with the patient and result sheet given to the patient on 04/19/19. ASSESSMENT: Negative, BI-RAD 1 RECOMMENDATION: Return to routine screening mammogram schedule for both breasts.
== END | disposition home or self-care (01) ==
LOC: RADMAMWWP 09:23
PROVIDERS: ATTEND Surgery
DX: R92.8 Other abnormal and inconclusive findings on diagnostic imaging of breast (principal)
CPT/HCPCS: 77065; G0279; 77061

== ENCOUNTER → 2019-04-20 | Outpatient (CLI) | payer MEDICARE ==
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
== END ==
LOC: WWCWWP 11:59
PROVIDERS: ATTEND Surgery
DX: Z53.9 Procedure and treatment not carried out, unspecified reason (principal)

== ENCOUNTER → 2020-05-19 | Outpatient (CLI) | payer MEDICARE ==
--- NOTE | 2020-05-20 08:13 | CT ---
EXAMINATION TYPE: CT ChestAbdPelvis w con DATE OF EXAM: 05/19/2020 COMPARISON: Chest x-ray April 11, 2019.. HISTORY: Pleural effusion per order. Diffuse pain and shortness of breath. CT DLP: 747.40 mGycm. Automated Exposure Control for Dose Reduction was Utilized. CONTRAST: CT scan of the thorax, abdomen and pelvis is performed with oral and with IV Contrast, patient inject ed with 100 mL of Isovue 300. FINDINGS: LUNGS: Fairly moderate underlying emphysematous changes greatest in the upper lungs. There is tiny right ple ural effusion. There is small to moderate size left pleural effusion with associated compressive atel ectasis. No obvious pulmonary mass. Few scattered small peripheral majority of micronodules particula rly in the periphery of the right lung, largest measuring 5 x 4 mm subpleural region right lower lobe axial image 42. [id number] right basilar linear scarring and/or atelectasis. Additional inferi or lingular compressive atelectasis. Tracheobronchial tree is patent. MEDIASTINUM: Post CABG changes with mediastinal clips and sternal wires and SMITH harvesting noted. Th ere are no greater than 1 cm hilar or mediastinal lymph nodes. Prominent but subcentimeter lymph node s in the prevascular space and AP window are identified. Trace pericardial effusion is seen. Cardiom egaly with moderate biatrial dilatation. LIVER/GB: Liver is overall heterogeneous with focal 1.9 x 0.9 cm peripheral hyperdense area axial samuel ge 67 series 4 that becomes more isodense on delayed phase images. Possible focal volume loss at this level with some capsular retraction. Suspect subcentimeter hyperdense focus medial segment left hepa tic lobe anteriorly on axial image 65 near anterior interlobar fissure. Gallbladder somewhat contract ed. No biliary dilatation. PANCREAS: No significant abnormality is seen. SPLEEN: No significant abnormality is seen. ADRENALS: Slight thickening to both adrenal glands may reflect product of benign lipid rich hyperplas ia. KIDNEYS: Symmetric cortical medullary uptake and excretion from both kidneys with extrarenal pelvis o n the right as there is no calyceal dilatation. Simple appearing 2.2 cm thin-walled cyst medially upp er pole left kidney delayed axial image 32. BOWEL: Oral contrast reaches level of the distal transverse colon. No suspicious small or large bowel dilatation. Slightly low-lying cecum into the right pelvis. Normal size appendix in the right pelvis . Some sigmoid colonic diverticula. Fecal prominence in the rectum. GENITAL ORGANS: Slightly retroverted uterus. Possible trace free fluid in the pelvis on axial image 1 05. No suspicious adnexal masses. LYMPH NODES: No greater than 1cm abdominal or pelvic lymph nodes are appreciated. OSSEOUS STRUCTURES: Osseous structures are demineralized. Slight scoliotic curvature. Moderate disc s pace narrowing with vacuum disc phenomenon and right L5-S1 level. Mild multilevel anterior spurring. Mild to moderate narrowing and acetabular spurring of both hips. Nonspecific sclerotic foci left femo ral head and superior pelvic rami favoring benign bone islands. OTHER: Satisfactory enhancement of the central pulmonary arteries. Moderate mixed plaque in the thora cic aorta. Moderate to severe calcified plaque in the abdominal aorta extending into branch vessels. Likely significant narrowings at origin of celiac artery sagittal image 61 and 4 prominent at SMA due to severe calcified the noncalcified plaque. Area of complete occlusion likely present sagittal imag e 60 IMPRESSION: 1. Confirmation of small to moderate-sized left pleural effusion with associated compressive atelecta sis. Background mild to moderate underlying emphysematous change. There is tiny right pleural effusio n. Nonspecific predominantly right-sided nodules measure up to 5 mm in size favors benign or postinfl ammatory. Cardiomegaly with moderate biatrial dilatation. Post-CABG changes. 2. Nonspecific small areas in the liver, cannot exclude solid lesions. [facility] contrast-enhanced CT or MRI may be beneficial. Correlation with old outside CT is advised if available. 3. Overall nonobstructive bowel gas pattern. Focal moderate to severe rectal fecal stasis. 4. 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 Endov ascular surgical referral advised.
== END | disposition home or self-care (01) ==
LOC: RADCTMAIN 16:58
PROVIDERS: ATTEND Internal Medicine
DX: J90 Pleural effusion, not elsewhere classified (principal); I70.0 Atherosclerosis of aorta
CPT/HCPCS: 82565; 84520; 71260; 74177; 36415; Q9967

== ENCOUNTER 2020-06-30 08:52 | Day surgery (SDC) | payer MEDICARE ==
[2020-06-30 09:48] LABS: Mean Platelet Volume 8.1; Platelet Count 165 k/uL (150-450)
[2020-06-30 10:00] LABS: INR 1.1 (<1.2)
[2020-06-30 10:27] VITALS: RESP 16; TEMP 97.8
--- NOTE | 2020-06-30 11:18 | US ---
Ultrasound-guided therapeutic and diagnostic thoracentesis DATE OF EXAM: 06/30/2020 CLINICAL HISTORY: Left pleural effusion The procedure was discussed with the patient. The risks, complications, benefits, and alternatives we re discussed and any questions were answered. Informed consent was obtained. The patient was placed supine on the ultrasound table and prepped and draped in the usual sterile fas hion. All elements of maximal barrier and sterile technique were utilized. Under ultrasound guidance, access into the pleural space was obtained, via the thoracentesis catheter system and direct ultrasound guidance. Ap proximately 1.2 liters of straw-colored fluid was removed. Sample sent to pathology for analysis. The patient was stable throughout the procedure and remained stable upon discharge from Department of Radiology. IMPRESSION: 1. Successful therapeutic and diagnostic thoracentesis under ultrasound guidance.
--- NOTE | 2020-06-30 11:24 | XR ---
EXAMINATION TYPE: XR chest 1V portable DATE OF EXAM: 06/30/2020 Comparison: 06/25/2020 Clinical History: 75-year-old female S/P thoracentesis Findings: Median sternotomy wires and post-CABG clips and annuloplasty ring. Heart mildly enlarged. Residual sm all left pleural effusion with patchy bibasilar opacities. Mild interstitial prominence and some Kerl ey B lines. No appreciable pneumothorax. Impression: Residual small left effusion with adjacent atelectasis and/or consolidation. No appreciable pneumotho rax. Possible trace effusion on the right. Given some Ray B lines, correlate to exclude mild pulmo nary vascular congestion.
[2020-06-30 11:49] VITALS: BP 152/92; PULSE 68
[2020-06-30 17:42] LABS: Appearance,BF Clear; Color,BF Yellow; Nucleated Cells, Body Fluid 240 /uL; RBC, Body Fluid 715 /uL
[2020-06-30 17:43] LABS: Mononuclear WBC,Body Fluid 94 %; Polynuclear WBC,Body Fluid 6 %; Total Cells Counted,Body Fluid 100
[2020-07-01 04:33] LABS: Total Protein, Body Fluid 1950 mg/dL
[2020-07-01 04:50] LABS: Glucose, BF Source Pleural Fluid; Glucose, Body Fluid 170 mg/dL; LDH, Body Fluid Source Pleural Fluid
== END 2020-06-30 11:30 | disposition home or self-care (01) ==
LOC: RADPROMAIN 08:52
PROVIDERS: ATTEND Internal Medicine
DX: J90 Pleural effusion, not elsewhere classified (principal); Z95.1 Presence of aortocoronary bypass graft
CPT/HCPCS: 32555; 36415; 71045; 82945; 82947; 83615; 84157; 85049; 85610; 87070; 87075; 87205; 88108; 88305; 89050

== ENCOUNTER 2021-02-08 06:33 | Inpatient (IN) | payer MEDICARE ==
[2021-02-08] MEDS ORDERED: SODIUM CHLORIDE 0.9% 500 ML 500 ML IV STA (06:43)
[2021-02-08] MEDS ORDERED: ASPIRIN 81 MG PO STA (06:43)
[2021-02-08] MEDS ORDERED: DILTIAZEM DRIP BOLUS FROM BAG 1 MG SOLN IV ONE (06:44)
[2021-02-08] MEDS: DILTIAZEM 125 MG in SODIUM CHLORIDE 0.9% 100 ML IV SCH (07:03)
--- NOTE | 2021-02-08 07:05 | ED ---
General Adult HPI <RamiroBrent - Last Filed: 02/08/21 08:25> - General Source: EMS Mode of arrival: EMS <Manuela Duke - Last Filed: 02/08/21 08:48> - General Chief complaint: Shortness of Breath Stated complaint: CAMILA Time Seen by Provider: 02/08/21 06:40 - History of Present Illness Initial comments: Patient is a 75-year-old female with history of heart disease, diabetes, presenting to the emergency department via EMS from [facility] after having difficulty in breathing since last night. Patient states that last night she felt short of breath and had some chest tightness. She denies any chest pain today. She denies any symptoms at all right now. She denies any recent fevers or chills, no coughing. She denies history of any lung disease, she does have history of pleural effusion. She denies being on blood thinners. She states she has no history of A. fib. Patient has no further complaints at this time. (Manuela Duke) - Related Data Home Medications Medication Instructions Recorded Confirmed metFORMIN HCL [Glucophage] 500 mg PO BID@0800,1700 03/11/14 02/08/21 Apixaban [Eliquis] 5 mg PO BID 02/08/21 02/08/21 Carvedilol [Coreg] 12.5 mg PO BID 02/08/21 02/08/21 Donepezil [Aricept] 10 mg PO HS 02/08/21 02/08/21 Escitalopram Oxalate [Lexapro] 5 mg PO DAILY@1700 02/08/21 02/08/21 Memantine [Namenda] 10 mg PO BID 02/08/21 02/08/21 Allergies Allergy/AdvReac Type Severity Reaction Status Date / Time furosemide Allergy Unknown Unknown Verified 02/08/21 07:40 hydrocodone bitartrate Allergy Unknown Hallucinati Verified 02/08/21 07:40 [From Vicodin] ons pravastatin Allergy Unknown Itching, Verified 02/08/21 07:40 face swelling simvastatin Allergy Unknown Itching, Verified 02/08/21 07:40 face swelling Influenza Virus Vaccines Allergy Unknown Verified 02/08/21 07:40 rosuvastatin calcium Allergy fainting Verified 02/08/21 07:40 [From Crestor] Yhekona-Xll-[id number] Reductase Allergy itching, Verified 02/08/21 07:40 Inhibitor face swelling flu vaccine Allergy Unknown Uncoded 06/30/20 10:28 Review of Systems ROS Other: All systems not noted in ROS Statement are negative. <Brent Rubio - Last Filed: 02/08/21 08:25> ROS Other: All systems not noted in ROS Statement are negative. <Manuela Duke Devaughn - Last Filed: 02/08/21 08:48> ROS Statement: Those systems with pertinent positive or pertinent negative responses have been documented in the HPI. Past Medical History Past Medical History: Coronary Artery Disease (CAD), Diabetes Mellitus, Hyperlipidemia, Hypertension, Myocardial Infarction (HI) Additional Past Medical History / Comment(s): hx ulcers, hx polyps, silent HI Last Myocardial Infarction Date:: 2008 History of Any Multi-Drug Resistant Organisms: None Reported Past Surgical History: Coronary Bypass/CABG, Heart Catheterization, Tubal Ligation Additional Past Surgical History / Comment(s): triple bypass, carlene carotid endarterectomy with mesh, valve repair, states no stents in heart, loop recorder removed in 2017, carelne cataracts Past Anesthesia/Blood Transfusion Reactions: No Reported Reaction Date of Last Stent Placement:: 2009 Type of Cardiac Device: Loop Device Placement Date:: 01/22 Past Psychological History: No Psychological Hx Reported Smoking Status: Never smoker Past Alcohol Use History: None Reported Past Drug Use History: None Reported - Past Family History Mother Family Medical History: Cancer Additional Family Medical History / Comment(s): BREAST <Manuela Duke Devaughn - Last Filed: 02/08/21 08:48> General Exam <Manuela Duke Devaughn - Last Filed: 02/08/21 08:48> - General Exam Comments Initial Comments: GENERAL: Patient is well-developed and well-nourished. Patient is nontoxic and in no acute distress. HEAD: Atraumatic, normocephalic. EYES: Pupils equal round and reactive to light, extraocular movements intact, sclera anicteric, conjunctiva are normal. Eyelids were unremarkable. ENT: TMs normal, nares patent, oropharynx clear without exudates. Moist mucous membranes. NECK: Normal range of motion, supple without lymphadenopathy or JVD. LUNGS: Unlabored respirations. Breath sounds clear to auscultation bilaterally and equal. No wheezes rales or rhonchi. HEART: Tachycardia, irregular rate and rhythm without murmurs, rubs or gallops. ABDOMEN: Soft, nontender, normoactive bowel sounds. No guarding, no rebound. No masses appreciated. : Deferred MUSCULOSKELETAL: Normal extremities with adequate strength and normal range of motion, no pitting or edema. No clubbing or cyanosis. NEUROLOGICAL: Patient is alert and oriented x 3. Motor and sensory are also intact. Cranial nerves II through XII grossly intact. Symmetrical smile. Normal speech, normal gait. PSYCH: Normal mood, normal affect. SKIN: Warm, Dry, normal turgor, no rashes or lesions noted. (Manuela Duke) Course <Brent Rubio - Last Filed: 02/08/21 08:25> Vital Signs 02/08/21 02/08/21 06:39 07:40 Temperature 97.5 F L Pulse Rate 149 H 96 Respiratory 19 18 Rate Blood Pressure 163/110 129/106 O2 Sat by Pulse 94 L 98 Oximetry - Reevaluation(s) Reevaluation #1: 02/08/21 07:27 Patient reevaluated and reexamined by myself, Dr. Rubio. I agree with PAs findings. This includes diagnostic interpretation and treatment plan. Patient does have A. fib with RVR. Cardizem was started. Heparin will be started. Patient also has left-sided effusion with decreased lung sounds in this area. Patient is updated on results and plan. 02/08/21 08:25 Case was discussed with Dr. dalal, who will admit covering hospital call. (Brent Rubio) EKG Findings - EKG Comments: EKG Findings:: A. fib with RVR, nonspecific ST abnormalities, no signs of acute ischemia. This is a change from her previous on 02/15/2019. Ventricular rate is 144, QRS duration 108, QT 310. <Manuela Duke - Last Filed: 02/08/21 08:48> Medical Decision Making - Lab Data Result diagrams: 02/08/21 07:05 02/08/21 07:05 <Brent Rubio - Last Filed: 02/08/21 08:25> - Lab Data Result diagrams: 02/08/21 07:05 02/08/21 07:05 <Manuela Duke - Last Filed: 02/08/21 08:48> - Medical Decision Making Patient is a 75-year-old female with history of heart disease, presenting from [facility] with via EMS for shortness of breath and chest tightness that started last night. She does have history of A. fib, she is on eliquis. Heart rate was in the 150s upon arrival. EKG reads A. fib with RVR. Her blood pressure is elevated 163/110, 94% on room air. Labs are stable, troponin 0.015, rapid Covid is negative. Chest x-ray shows left lower lobe infiltrate and small bilateral effusions. Patient was started on Cardizem, rate has decreased to the 90s to 100s. She is asymptomatic other than feeling a little short of breath. Patient will be admitted for A. fib with RVR as well as pleural effusions. Consult cardiology and pulmonology. Patient accepted by Dr. Dalal. Case discussed with Dr. Rubio. (Manuela Duke) - Lab Data Lab Results 02/08/21 02/08/21 02/08/21 Range/Units 07:05 07:05 07:05 WBC 8.9 (3.8-10.6) k/uL RBC 4.97 (3.80-5.40) m/uL Hgb 14.3 (11.4-16.0) gm/dL Hct 45.8 (34.0-46.0) % MCV 92.1 (80.0-100.0) fL MCH 28.8 (25.0-35.0) pg MCHC 31.3 (31.0-37.0) g/dL RDW 14.0 (11.5-15.5) % Plt Count 232 (150-450) k/uL MPV 8.6 Neutrophils % 78 % Lymphocytes % 13 % Monocytes % 6 % Eosinophils % 2 % Basophils % 1 % Neutrophils # 7.0 (1.3-7.7) k/uL Lymphocytes # 1.1 (1.0-4.8) k/uL Monocytes # 0.5 (0-1.0) k/uL Eosinophils # 0.2 (0-0.7) k/uL Basophils # 0.1 (0-0.2) k/uL PT 11.1 (9.0-12.0) sec INR 1.1 (<1.2) APTT 24.6 (22.0-30.0) sec Sodium 138 (137-145) mmol/L Potassium 4.9 (3.5-5.1) mmol/L Chloride 105 (98-107) mmol/L Carbon Dioxide 26 (22-30) mmol/L Anion Gap 7 mmol/L BUN 24 H (7-17) mg/dL Creatinine 0.71 (0.52-1.04) mg/dL Est GFR (CKD-EPI)AfAm >90 (>60 ml/min/1.73 sqM) Est GFR (CKD-EPI)NonAf 83 (>60 ml/min/1.73 sqM) Glucose 170 H (74-99) mg/dL Calcium 9.6 (8.4-10.2) mg/dL Magnesium 1.6 (1.6-2.3) mg/dL Total Bilirubin 0.9 (0.2-1.3) mg/dL AST 56 H (14-36) U/L ALT 35 H (4-34) U/L Alkaline Phosphatase 67 (38-126) U/L Troponin I (0.000-0.034) ng/mL Total Protein 7.1 (6.3-8.2) g/dL Albumin 4.0 (3.5-5.0) g/dL Influenza Type A (PCR) (Not Detectd) Influenza Type B (PCR) (Not Detectd) RSV (PCR) (Not Detectd) SARS-CoV-2 (PCR) (Not Detectd) 02/08/21 02/08/21 Range/Units 07:05 07:05 WBC (3.8-10.6) k/uL RBC (3.80-5.40) m/uL Hgb (11.4-16.0) gm/dL Hct (34.0-46.0) % MCV (80.0-100.0) fL MCH (25.0-35.0) pg MCHC (31.0-37.0) g/dL RDW (11.5-15.5) % Plt Count (150-450) k/uL MPV Neutrophils % % Lymphocytes % % Monocytes % % Eosinophils % % Basophils % % Neutrophils # (1.3-7.7) k/uL Lymphocytes # (1.0-4.8) k/uL Monocytes # (0-1.0) k/uL Eosinophils # (0-0.7) k/uL Basophils # (0-0.2) k/uL PT (9.0-12.0) sec INR (<1.2) APTT (22.0-30.0) sec Sodium (137-145) mmol/L Potassium (3.5-5.1) mmol/L Chloride (98-107) mmol/L Carbon Dioxide (22-30) mmol/L Anion Gap mmol/L BUN (7-17) mg/dL Creatinine (0.52-1.04) mg/dL Est GFR (CKD-EPI)AfAm (>60 ml/min/1.73 sqM) Est GFR (CKD-EPI)NonAf (>60 ml/min/1.73 sqM) Glucose (74-99) mg/dL Calcium (8.4-10.2) mg/dL Magnesium (1.6-2.3) mg/dL Total Bilirubin (0.2-1.3) mg/dL AST (14-36) U/L ALT (4-34) U/L Alkaline Phosphatase (38-126) U/L Troponin I 0.015 (0.000-0.034) ng/mL Total Protein (6.3-8.2) g/dL Albumin (3.5-5.0) g/dL Influenza Type A (PCR) Not Detected (Not Detectd) Influenza Type B (PCR) Not Detected (Not Detectd) RSV (PCR) Not Detected (Not Detectd) SARS-CoV-2 (PCR) Not Detected (Not Detectd) Critical Care Time Critical Care Time: Yes Total Critical Care Time: 35 (Patient presented with A. fib with RVR, heart rate in the 150s. Cardizem drip was started. Chest x-ray shows bilateral pleural effusions as well. Patient was admitted.) <Manuela Duke - Last Filed: 02/08/21 08:48> Disposition <Brent Rubio - Last Filed: 02/08/21 08:25> Decision Date: 02/08/21 Decision Time: 08: <Manuela Duke - Last Filed: 02/08/21 08:48> Clinical Impression: Atrial fibrillation with RVR, Bilateral pleural effusion, Dyspnea Disposition: ADMITTED IP TO THIS HOSP Condition: Stable
--- NOTE | 2021-02-08 07:05 | XR ---
EXAMINATION TYPE: XR chest 2V DATE OF EXAM: 02/08/2021 COMPARISON: 06/30/2020 TECHNIQUE: PA and lateral views submitted. HISTORY: Chest. FINDINGS: The heart is enlarged and there is diffuse interstitial pattern with left lower lobe infiltrate and s mall bilateral effusions. No pneumothorax. Postoperative changes. Underlying COPD suspected. Atrophic and degenerative change of the spine. IMPRESSION: Left lower lobe infiltrate and small bilateral effusion stable correlate for mild venous congestion or interstitial pneumonitis
[2021-02-08 07:14] LABS: Basophils # (A) 0.1 k/uL (0-0.2); Basophils % (A) 1 %; Eosinophils # (A) 0.2 k/uL (0-0.7); Eosinophils % (A) 2 %; HCT 45.8 % (34.0-46.0); HGB 14.3 gm/dL (11.4-16.0); Lymphocytes # (A) 1.1 k/uL (1.0-4.8); Lymphocytes % (A) 13 %; MCH 28.8 pg (25.0-35.0); MCHC 31.3 g/dL (31.0-37.0); MCV 92.1 fL (80.0-100.0); Mean Platelet Volume 8.6; Monocytes # (A) 0.5 k/uL (0-1.0); Monocytes % (A) 6 %; Neutrophils % (A) 78 %; Platelet Count 232 k/uL (150-450); RBC 4.97 m/uL (3.80-5.40); WBC 8.9 k/uL (3.8-10.6)
[2021-02-08 07:23] LABS: ALT 35 U/L (4-34); AST 56 U/L (14-36); African American GFR (CKD) >90 (>60 ml/min/1.73 sqM); Alkaline Phosphatase 67 U/L (38-126); Anion Gap 7 mmol/L; Blood Urea Nitrogen 24 mg/dL (7-17); Calcium 9.6 mg/dL (8.4-10.2); Carbon Dioxide 26 mmol/L (22-30); Chloride 105 mmol/L (98-107); Glucose 170 mg/dL (74-99); Magnesium 1.6 mg/dL (1.6-2.3); Non-African American GFR(CKD) 83 (>60 ml/min/1.73 sqM); Potassium 4.9 mmol/L (3.5-5.1); Sodium 138 mmol/L (137-145); Total Bilirubin 0.9 mg/dL (0.2-1.3); Total Protein 7.1 g/dL (6.3-8.2)
[2021-02-08 07:34] LABS: INR 1.1 (<1.2); Partial Thromboplastin Time 24.6 sec (22.0-30.0); Prothrombin Time 11.1 sec (9.0-12.0)
[2021-02-08] MEDS ORDERED: NITROGLYCERIN SL TABS 0.4 MG TAB SUBLINGUAL PRN (08:19)
--- NOTE | 2021-02-08 09:37 | P.HPIM ---
History of Present Illness H&P Date: 02/08/21 Chief Complaint: Palpitations 75-year-old white female who reported to the hospital because of shortness of breath and palpitations. She denies chest pain. Symptoms started last night. She denies subjective fever or chills, no hematuria dysuria hematemesis or hematochezia. She has history of atrial fibrillation and states that she has had her cardiac workup performed at an outside facility recently. Patient's daughter is at bedside Review of Systems 10 systems reviewed, pertinent positive and negative findings as in the HPI. No chest pain, no abdominal pain Past Medical History Past Medical History: Coronary Artery Disease (CAD), Heart Failure, Dementia, Diabetes Mellitus, Hyperlipidemia, Hypertension, Myocardial Infarction (ID) Additional Past Medical History / Comment(s): hx ulcers, hx polyps, silent ID, heart valve issues aortic valve is the worse Last Myocardial Infarction Date:: 2009 History of Any Multi-Drug Resistant Organisms: None Reported Past Surgical History: Coronary Bypass/CABG, Heart Catheterization, Tubal Ligation Additional Past Surgical History / Comment(s): triple bypass, carlene carotid endarterectomy with mesh, valve repair, states no stents in heart, loop recorder removed in 2018, carlene cataracts Past Anesthesia/Blood Transfusion Reactions: No Reported Reaction Date of Last Stent Placement:: 2009 Type of Cardiac Device: Loop Device Placement Date:: 01/22 Smoking Status: Former smoker - Past Family History Mother Family Medical History: Cancer Additional Family Medical History / Comment(s): BREAST Medications and Allergies Home Medications Medication Instructions Recorded Confirmed Type metFORMIN HCL [Glucophage] 500 mg PO BID@0800,1700 03/11/14 02/08/21 History Apixaban [Eliquis] 5 mg PO BID 02/08/21 02/08/21 History Carvedilol [Coreg] 12.5 mg PO BID 02/08/21 02/08/21 History Donepezil [Aricept] 10 mg PO HS 02/08/21 02/08/21 History Escitalopram Oxalate [Lexapro] 5 mg PO DAILY@1700 02/08/21 02/08/21 History Memantine [Namenda] 10 mg PO BID 02/08/21 02/08/21 History Allergies Allergy/AdvReac Type Severity Reaction Status Date / Time furosemide Allergy Unknown Unknown Verified 02/08/21 07:40 hydrocodone bitartrate Allergy Unknown Hallucinati Verified 02/08/21 07:40 [From Vicodin] ons pravastatin Allergy Unknown Itching, Verified 02/08/21 07:40 face swelling simvastatin Allergy Unknown Itching, Verified 02/08/21 07:40 face swelling Influenza Virus Vaccines Allergy Unknown Verified 02/08/21 07:40 rosuvastatin calcium Allergy fainting Verified 02/08/21 07:40 [From Crestor] Qoytfux-Bjz-Jli Reductase Allergy itching, Verified 02/08/21 07:40 Inhibitor face swelling flu vaccine Allergy Unknown Uncoded 06/30/20 10:28 Physical Exam Vitals: Vital Signs Temp Pulse Pulse Resp BP BP Pulse Ox 02/08/21 09:09 97.9 F 82 20 137/97 99 02/08/21 07:40 96 18 129/106 98 02/08/21 06:39 97.5 F L 149 H 19 163/110 94 L Intake and Output 02/07/21 02/08/21 02/08/21 22:59 06:59 14:59 Other: Weight 65.771 kg 65.771 kg Constitutional: No acute distress, conversant, pleasant Eyes: Anicteric sclerae, moist conjunctiva, no lid-lag, PERRLA ENMT: NC/AT Neck:Supple, FROM Lungs: Clear to auscultation, Clear to percussion, Normal respiratory effort, no accessory muscle use Cardiovascular: Irregular rhythm, tachycardia, No murmurs, gallops, or rubs no peripheral edema Abdominal: Soft Nontender, nom distended, no guarding, no rebound or rigidity, Normoactive bowel sounds No hepatomegaly, No splenomegaly, No palpable mass No abdominal wall hernia noted Skin: Normal temperature, tone, texture, turgor Extremities:No digital cyanosis No clubbing, Pedal pulses intact and symmetrical Radial pulses intact and symmetrical Normal gait and station, No calf tenderness Psychiatric: Alert and oriented to person, place and time, Appropriate affect Intact judgement Neuro: Muscles Strength 5/5 in all 4 extremities, Sensation to light touch grossly present throughout, Cranial nerves II-XII grossly intact. No focal sensory deficits Results CBC & Chem 7: 02/08/21 07:05 02/08/21 07:05 Labs: Abnormal Lab Results - Last 24 Hours (Table) 02/08/21 Range/Units 07:05 BUN 24 H (7-17) mg/dL Glucose 170 H (74-99) mg/dL AST 56 H (14-36) U/L ALT 35 H (4-34) U/L Assessment and Plan Plan: 1. Paroxysmal atrial fibrillation with RVR: Continue Cardizem drip, continue Eliquis and Coreg. Continue to check cardiac enzymes, check urinalysis, cardiology consult. 2. Left lower lobe pneumonia with bilateral pleural effusion and congestion: Start antibiotics with Rocephin and Zithromax, a sputum cultures. Oxygen and bronchodilators as indicated. 3. Depression: Continue Lexapro 4. Dementia unspecified type without behavioral changes: Continue Aricept/Namenda 5. Essential hypertension: Continue Coreg 6. Diabetes type 2 with hyperglycemia: Place on insulin sliding scale DVT prophylaxis: Eliquis Treatment plan discussed with the patient and her daughter at bedside
--- NOTE | 2021-02-08 10:31 | CT ---
EXAMINATION TYPE: CT soft tissue neck wo con DATE OF EXAM: 02/08/2021 HISTORY: pain COMPARISON: None CT DLP: 194.9 mGycm. Automated Exposure Control for Dose Reduction was Utilized. TECHNIQUE: CT scan of the neck is performed , contrast. This results in a limited exam. FINDINGS: Grossly there is significant artifact from dental hardware. Lack of contrast severely limit s the exam. Subcentimeter thyroid nodules are noted. There are bilateral pleural effusions and diffus e atherosclerotic change of the aorta. Suggestion of severe atherosclerotic change of the origins of the great vessels or occlusion of the right brachiocephalic artery. COPD involving the lung apices no marcelino. Hypertrophic and degenerative change of the spine noted with severe changes at C5-6 and C6-C7. [place] marcelino multilevel facet arthropathy, foraminal encroachment and canal stenosis. Consider MRI follow-up. Nonspecific calcifications are seen along the oropharynx bilaterally. Grossly the base of the tongue is symmetric. Vocal cords have a normal appearance and the airway is patent. Sternotomy changes. By noncontrast technique no obvious lymphadenopathy. Orbits are symmetric. Intracranial structures ar e symmetric. Nasopharynx symmetric. The parotid glands demonstrate somewhat atrophic changes of the r ight IMPRESSION: 1. Bilateral pleural effusions and changes of COPD. 2. Severe atherosclerotic change of the aortic arch and origins of the great vessels with significant stenoses not excluded. Correlate clinically. 3. Degenerative change cervical spine suspected foraminal encroachment and canal stenosis. No disc he rniation C4-C5 suspected. 4. Significant stenosis of the proximal right common carotid artery also suspected. 5. Nonspecific calcifications adjacent to the oropharynx bilaterally.
[2021-02-08 11:49] LABS: Glucose,Whole Blood 162 mg/dL (75-99)
[2021-02-08] MEDS: AZITHROMYCIN 500 MG TAB PO SCH (12:47)
[2021-02-08] MEDS ORDERED: LORazepam 2 MG/ML INJ IV PRN (12:52)
[2021-02-08 13:41] LABS: Appearance,Urine Clear (Clear); Bacteria,Urine Rare /hpf; Bilirubin,Urine Negative (Negative); Blood,Urine Negative (Negative); Color,Urine Yellow; Glucose,Urine (UA) Trace (Negative); Hyaline Casts,Urine 3 /lpf (0-2); Ketones,Urine 1+ (Negative); Leukocyte Esterase,Urine Negative (Negative); Mucus,Urine Rare /hpf; Nitrite,Urine Negative (Negative); Protein,Urine 2+ (Negative); RBC,Urine 1 /hpf (0-5); Specific Gravity,Urine 1.022 (1.001-1.035); Squamous Epithelial Cell,Urine <1 /hpf (0-4); Urobilinogen,Urine <2.0 mg/dL (<2.0); WBC,Urine 1 /hpf (0-5)
--- NOTE | 2021-02-08 16:45 | P.CNPUL ---
History of Present Illness Consult date: 02/08/21 Requesting physician: Tricia Luis Reason for consult: pleural effusion, abnormal CXR/CT Chief complaint: Chest pain, shortness of breath History of present illness: This is a 75-year-old female patient with a history of diabetes mellitus, dementia, depression, coronary artery disease with previous CABG 3, valve repair anticoagulated with Eliquis, carotid stenosis with bilateral carotid e ndarterectomies. He was brought into the emergency room early this morning with difficulty in breathing since last night. She had shortness of breath and chest tightness. Chest x-ray revealed small bilateral pleural effusions left greater than right. Ear consulted for the same. She is seen today in consultation on the selective care unit. She had been in atrial fibrillation with a rapid vent ricular response. Currently on a Cardizem drip at 10 mg per hour. Continued on Eliquis. Currently maintaining O2 saturations in the upper 90s on 4 L/m per nasal cannula. She's been afebrile. White count 8.9. Hemoglobin 14.3. INR 1.1. Sodium 1:30. Potassium 4.9. Creatinine 0.71. Glucose 162. Troponin negative 2. Influenza screen negative. Perez virus screen negative. She has been initiated on ceftriaxone and azithromycin. Review of Systems REVIEW OF SYSTEMS: CONSTITUTIONAL: Denies any recent significant weight loss or weight gain. EYES: Denies change in vision. EARS, NOSE, MOUTH, THROAT: Denies headaches, denies sore throat. CARDIOVASCULAR: Positive for chest tightness, palpitations no syncopal episodes. RESPIRATORY: Positive for shortness of breath, no cough, congestion or hemoptysis. GASTROINTESTINAL: Denies change in appetite, denies abdominal pain GENITOURINARY: Denies hematuria, denies infections. MUSKULOSKELETAL: Denies pain, denies swelling. INTEGUMENTARY: Denies rash, denies eczema. NEUROLOGICAL: Denies recent memory loss, no recent seizure activity. PSYCHIATRIC: Denies anxiety, denies depression. HEMATOLOGIC/LYMPHATIC: Denies anemia, denies enlarged lymph nodes. Past Medical History Past Medical History: Coronary Artery Disease (CAD), Heart Failure, Dementia, Diabetes Mellitus, Hyperlipidemia, Hypertension, Myocardial Infarction ([place]) Additional Past Medical History / Comment(s): hx ulcers, hx polyps, silent [place], heart valve issues aortic valve is the worse Last Myocardial Infarction Date:: 2009 History of Any Multi-Drug Resistant Organisms: None Reported Past Surgical History: Coronary Bypass/CABG, Heart Catheterization, Tubal Ligation Additional Past Surgical History / Comment(s): triple bypass, carlene carotid endarterectomy with mesh, valve repair, states no stents in heart, loop recorder removed in 2018, carlene cataracts Past Anesthesia/Blood Transfusion Reactions: No Reported Reaction Date of Last Stent Placement:: 2009 Type of Cardiac Device: Loop Device Placement Date:: 01/22 Smoking Status: Former smoker - Past Family History Mother Family Medical History: Cancer Additional Family Medical History / Comment(s): BREAST Medications and Allergies Home Medications Medication Instructions Recorded Confirmed Type metFORMIN HCL [Glucophage] 500 mg PO BID@0800,1700 03/11/14 02/08/21 History Apixaban [Eliquis] 5 mg PO BID 02/08/21 02/08/21 History Carvedilol [Coreg] 12.5 mg PO BID 02/08/21 02/08/21 History Donepezil [Aricept] 10 mg PO HS 02/08/21 02/08/21 History Escitalopram Oxalate [Lexapro] 5 mg PO DAILY@1700 02/08/21 02/08/21 History Memantine [Namenda] 10 mg PO BID 02/08/21 02/08/21 History Allergies Allergy/AdvReac Type Severity Reaction Status Date / Time furosemide Allergy Unknown Unknown Verified 02/08/21 07:40 hydrocodone bitartrate Allergy Unknown Hallucinati Verified 02/08/21 07:40 [From Vicodin] ons pravastatin Allergy Unknown Itching, Verified 02/08/21 07:40 face swelling simvastatin Allergy Unknown Itching, Verified 02/08/21 07:40 face swelling Influenza Virus Vaccines Allergy Unknown Verified 02/08/21 07:40 rosuvastatin calcium Allergy fainting Verified 02/08/21 07:40 [From Crestor] Tprrypb-Rrr-Ant Reductase Allergy itching, Verified 02/08/21 07:40 Inhibitor face swelling flu vaccine Allergy Unknown Uncoded 06/30/20 10:28 Physical Exam Vitals: Vital Signs Temp Pulse Pulse Resp BP BP Pulse Ox 02/08/21 12:00 97.6 F 114 H 133/86 98 02/08/21 09:09 97.9 F 82 20 137/97 99 02/08/21 07:40 96 18 129/106 98 02/08/21 06:39 97.5 F L 149 H 19 163/110 94 L Intake and Output 02/08/21 02/08/21 02/08/21 06:59 14:59 22:59 Other: # Voids 1 # Bowel Movements 1 Weight 65.771 kg 65.771 kg GENERAL EXAM: Alert, pleasant 75-year-old female patient, on 4 L nasal cannula, comfortable in no apparent distress. HEAD: Normocephalic. EYES: Normal reaction of pupils, equal size. NOSE: Clear with pink turbinates. THROAT: No erythema or exudates. NECK: No masses, no JVD. CHEST: No chest wall deformity. LUNGS: Equal air entry crackles in the bilateral posterior bases left greater than right. CVS: S1 and S2 normal with no audible murmur, regular rhythm. ABDOMEN: No hepatosplenomegaly, normal bowel sounds, no guarding or rigidity. SPINE: No scoliosis or deformity SKIN: No rashes CENTRAL NERVOUS SYSTEM: No focal deficits, tone is normal in all 4 extremities. EXTREMITIES: There is no peripheral edema. No clubbing, no cyanosis. Peripheral pulses are intact. Results - Laboratory Findings CBC and BMP: 02/08/21 07:05 02/08/21 07:05 PT/INR, D-dimer PT 11.1 sec (9.0-12.0) 02/08/21 07:05 INR 1.1 (<1.2) 02/08/21 07:05 Abnormal lab findings: Abnormal Labs 02/08/21 02/08/21 02/08/21 07:05 11:46 13:17 BUN 24 H Glucose 170 H POC Glucose (mg/dL) 162 H AST 56 H ALT 35 H Urine Protein 2+ H Urine Glucose (UA) Trace H Urine Ketones 1+ H Urine Bacteria Rare H Hyaline Casts 3 H Urine Mucus Rare H - Diagnostic Findings Chest x-ray: image reviewed Assessment and Plan Assessment: 1 Atrial fibrillation with a rapid ventricular response, currently on a Cardizem drip. Anticoagulated with Eliquis. 2 Acute hypoxemic respiratory failure secondary to above and bilateral pleural effusions left greater than right 3 Coronary artery disease with previous coronary artery bypass grafting 4 History of valve repair 5 Carotid stenosis status post bilateral carotid endarterectomy 6 Dementia 7 Diabetes mellitus 8 Hyperlipidemia 9 Hypertension Plan: The patient was seen and evaluated by Dr. Gauthier Chest x-ray and labs reviewed We'll obtain ultrasound of the left chest If significant free-flowing fluid we'll perform thoracentesis Will be to hold Eliquis Titrate the FiO2 as tolerated We will continue to follow and make further recommendations based on her clinical status I, the cosigning physician, performed a history & physical examination of the patient. Lungs sounds with crackles in the posterior bases left greater than right Maintaining good O2 saturations in the 90s on 4 L/m per nasal cannula. I discussed the assessment and plan of care with my nurse practitioner, Judith Michel. I attest to the above consultation as dictated by her. Time with Patient: Greater than 30
[2021-02-08 17:02] LABS: Glucose,Whole Blood 108 mg/dL (75-99)
[2021-02-08] MEDS: carvediloL 12.5 MG TAB PO SCH (17:53)
[2021-02-08] MEDS: ESCITALOPRAM 5 MG TAB PO SCH (17:53)
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
[2021-02-08 20:30] LABS: Glucose,Whole Blood 111 mg/dL (75-99)
[2021-02-08] MEDS: MEMANTINE 10 MG TAB PO SCH (20:37)
[2021-02-08] MEDS: DONEPEZIL 10 MG TAB PO SCH (20:37)
[2021-02-08] MEDS: APIXABAN 5 MG TAB PO SCH (20:37)
[2021-02-09] MEDS: carvediloL 12.5 MG TAB PO SCH ×2 (06:31→17:37)
[2021-02-09] MEDS: DILTIAZEM 125 MG in SODIUM CHLORIDE 0.9% 100 ML IV SCH (06:37)
[2021-02-09 06:41] LABS: Glucose,Whole Blood 127 mg/dL (75-99)
[2021-02-09] MEDS: APIXABAN 5 MG TAB PO SCH ×2 (08:04→08:48)
[2021-02-09] MEDS: MEMANTINE 10 MG TAB PO SCH ×2 (08:05→20:15)
[2021-02-09] MEDS: AZITHROMYCIN 500 MG TAB PO SCH (08:05)
[2021-02-09] MEDS: ASPIRIN 325 MG TAB PO SCH ×2 (08:05→08:49)
--- NOTE | 2021-02-09 08:19 | US ---
EXAMINATION TYPE: US chest DATE OF EXAM: 02/09/2021 COMPARISON: Left pleural effusion none CLINICAL HISTORY: Markings for thoracentesis by pulmonary staff. TECHNIQUE: Targeted ultrasound of the posterior lower left hemithorax EXAM MEASUREMENTS: Left Pleural Effusion pocket size: 9.5 cm Left skin surface to fluid distance: 1.5 cm Left side marked for possible thoracentesis outside the dept. Pulmonologists are able to review the images in the patient?s EMR. IMPRESSIONS: Left pleural effusion
[2021-02-09 09:00] LABS: Basophils % (A) 0 %; Eosinophils # (A) 0.2 k/uL (0-0.7); Eosinophils % (A) 2 %; HCT 39.4 % (34.0-46.0); HGB 12.8 gm/dL (11.4-16.0); Lymphocytes # (A) 0.7 k/uL (1.0-4.8); Lymphocytes % (A) 10 %; MCH 29.7 pg (25.0-35.0); MCHC 32.6 g/dL (31.0-37.0); MCV 91.2 fL (80.0-100.0); Mean Platelet Volume 8.2; Monocytes # (A) 0.5 k/uL (0-1.0); Monocytes % (A) 7 %; Neutrophils # (A) 5.5 k/uL (1.3-7.7); Neutrophils % (A) 80 %; Platelet Count 186 k/uL (150-450); RBC 4.32 m/uL (3.80-5.40); RDW 13.7 % (11.5-15.5); WBC 6.9 k/uL (3.8-10.6)
[2021-02-09 09:15] LABS: ALT 28 U/L (4-34); AST 36 U/L (14-36); African American GFR (CKD) >90 (>60 ml/min/1.73 sqM); Albumin 3.1 g/dL (3.5-5.0); Alkaline Phosphatase 51 U/L (38-126); Anion Gap 3 mmol/L; Blood Urea Nitrogen 20 mg/dL (7-17); Carbon Dioxide 32 mmol/L (22-30); Chloride 103 mmol/L (98-107); Cholesterol 198 mg/dL (<200); Glucose 128 mg/dL (74-99); HDL Cholesterol 45 mg/dL (40-60); LDL Cholesterol,Calculated 127 mg/dL (0-99); Non-African American GFR(CKD) 88 (>60 ml/min/1.73 sqM); Potassium 4.4 mmol/L (3.5-5.1); Sodium 138 mmol/L (137-145); Total Bilirubin 1.3 mg/dL (0.2-1.3); Triglycerides 132 mg/dL (<150)
--- NOTE | 2021-02-09 11:05 | P.PN ---
Subjective Feels better, no chest pain no abdominal pain no nausea no vomiting no dizziness no shortness of breath Objective - Vital Signs Vital signs: Vital Signs Temp 97.8 F 02/09/21 08:50 Pulse 75 02/09/21 08:50 Resp 18 02/09/21 08:50 BP 91/58 02/09/21 08:50 Pulse Ox 99 02/09/21 08:50 Intake & Output 02/08/21 02/09/21 02/09/21 18:59 06:59 18:59 Intake Total 130 117.833 50 Output Total 200 300 Balance -70 -182.167 50 Weight 65.771 kg 64.2 kg Intake: Intake, IV Titration 130 117.833 50 Amount Diltiazem 125 mg In 50 117.833 Sodium Chloride 0.9% 100 ml @ 5 MG/HR 5 mls/hr IV .Q24H [facility] Rx#:[id number] Sodium Chloride 0.9% 500 30 ml 500 ml @ 999 mls/hr IV .Q31M [facility] Rx#:[id number] cefTRIAXone 1 gm In 50 50 Sodium Chloride 0.9% 50 ml @ 100 mls/hr IVPB Q24HR [facility] Rx#:[id number] Oral 0 Output: Urine 300 Urine/Stool Mix 200 Other: Voiding Method Toilet Toilet # Voids 1 1 1 # Bowel Movements 1 0 - Exam Constitutional: No acute distress, conversant, pleasant Eyes: Anicteric sclerae, moist conjunctiva, no lid-lag, PERRLA ENMT: NC/AT Neck:Supple, FROM Lungs: Clear to auscultation, Clear to percussion, Normal respiratory effort, no accessory muscle use Cardiovascular: Irregular rhythm, No murmurs, gallops, or rubs no peripheral edema Abdominal: Soft Nontender, nom distended, no guarding, no rebound or rigidity, Normoactive bowel sounds Skin: Normal temperature, tone, texture, turgor Extremities:No digital cyanosis No clubbing, Pedal pulses intact and symmetrical Radial pulses intact and symmetrical Normal gait and station, No calf tenderness Psychiatric: Alert and oriented to person, place and time, Appropriate affect Intact judgement Neuro: Muscles Strength 5/5 in all 4 extremities, Sensation to light touch grossly present throughout, Cranial nerves II-XII grossly intact. No focal sensory deficits - Labs CBC & Chem 7: 02/09/21 08:07 02/09/21 08:07 Labs: Abnormal Lab Results - Last 24 Hours (Table) 02/08/21 02/08/21 02/08/21 Range/Units 11:46 13:17 16:45 Lymphocytes # (1.0-4.8) k/uL Carbon Dioxide (22-30) mmol/L BUN (7-17) mg/dL Glucose (74-99) mg/dL POC Glucose (mg/dL) 162 H 108 H (75-99) mg/dL Total Protein (6.3-8.2) g/dL Albumin (3.5-5.0) g/dL LDL Cholesterol, Calc (0-99) mg/dL Urine Protein 2+ H (Negative) Urine Glucose (UA) Trace H (Negative) Urine Ketones 1+ H (Negative) Urine Bacteria Rare H (None) /hpf Hyaline Casts 3 H (0-2) /lpf Urine Mucus Rare H (None) /hpf 02/08/21 02/09/21 02/09/21 Range/Units 20:14 06:21 08:07 Lymphocytes # (1.0-4.8) k/uL Carbon Dioxide 32 H (22-30) mmol/L BUN 20 H (7-17) mg/dL Glucose 128 H (74-99) mg/dL POC Glucose (mg/dL) 111 H 127 H (75-99) mg/dL Total Protein 6.0 L (6.3-8.2) g/dL Albumin 3.1 L (3.5-5.0) g/dL LDL Cholesterol, Calc 127 H (0-99) mg/dL Urine Protein (Negative) Urine Glucose (UA) (Negative) Urine Ketones (Negative) Urine Bacteria (None) /hpf Hyaline Casts (0-2) /lpf Urine Mucus (None) /hpf 02/09/21 Range/Units 08:07 Lymphocytes # 0.7 L (1.0-4.8) k/uL Carbon Dioxide (22-30) mmol/L BUN (7-17) mg/dL Glucose (74-99) mg/dL POC Glucose (mg/dL) (75-99) mg/dL Total Protein (6.3-8.2) g/dL Albumin (3.5-5.0) g/dL LDL Cholesterol, Calc (0-99) mg/dL Urine Protein (Negative) Urine Glucose (UA) (Negative) Urine Ketones (Negative) Urine Bacteria (None) /hpf Hyaline Casts (0-2) /lpf Urine Mucus (None) /hpf Assessment and Plan Plan: 1. Paroxysmal atrial fibrillation with RVR: Continue Cardizem drip, continue Eliquis and Coreg. cardiology consult, input appreciated, titrate Cardizem off as tolerated. 2. Left lower lobe pneumonia with bilateral pleural effusion and congestion: Continue Rocephin and Zithromax. Oxygen and bronchodilators as indicated. Possible thoracentesis today. Appreciate pulmonology input 3. Depression: Continue Lexapro 4. Dementia unspecified type without behavioral changes: Continue Aricept/Namenda 5. Essential hypertension: Continue Coreg 6. Diabetes type 2 with hyperglycemia: Continue on insulin sliding scale DVT prophylaxis: Eliquis Treatment plan discussed with the patient and her daughter at bedside
[2021-02-09 11:44] LABS: Glucose,Whole Blood 144 mg/dL (75-99)
--- NOTE | 2021-02-09 11:49 | ECHOF ---
Referral Reason:a fib MEASUREMENTS -------- HEIGHT: 170.2 cm WEIGHT: 65.8 kg BP: 101/66 RVIDd: 3.9 cm (< 3.3) IVSd: 1.5 cm (0.6 - 1.1) LVIDd: 4.0 cm (3.9 - 5.3) LVPWd: 1.8 cm (0.6 - 1.1) IVSs: 1.7 cm LVIDs: 3.3 cm LVPWs: 2.1 cm LAESV Index (A-L): 39.37 ml/m Ao Diam: 3.3 cm (2.0 - 3.7) AV Cusp: 0.7 cm (1.5 - 2.6) LA Diam: 4.5 cm (2.7 - 3.8) MV EXCURSION: 8.649 mm (> 18.000) MV EF SLOPE: 41 mm/s (70 - 150) EPSS: 1.5 cm AV maxP.51 mmHg AV meanP.68 mmHg RAP: 5.00 mmHg RVSP: 42.81 mmHg FINDINGS -------- This was a technically adequate study. The left ventricular size is normal. There is moderate concentric left ventricular hypertrophy. O verall left ventricular systolic function is moderate-severely impaired with, an EF between 30 - 35 % . Left ventricular fillimg pressure cannot be estimated due to severe mitral annular calcification. Septal wall motion is delayed and consistent with prior cardiac surgery. Inferior Hypokinesis Mid Basal Septal Hypokinesis. The right ventricle is mild to moderately enlarged. LA is moderately dilated 34-39 ml/m2 The right atrium is mildly enlarged. Interatrial and interventricular septum intact. Trace amount of aortic regurgitation. Peak/mean gradient across the Aortic Valve is 42.51mmHg / 23 .68mmHg. There is moderate to severe aortic stenosis with dimensionless index 0.26. Degree of aort ic stenosis may be underestimated due to low flow low gradient. Recommend YUVAL, CT calcium scoring or low dose dobutamine stress echo if clinically indicated. Severe mitral annular calcification present. Moderate mitral regurgitation is present , with a MVA of 2.6cm (by PHT) There is moderate mitral stenosis with a mean gradient of 7mmHg at a heart rate of 74. Moderate tricuspid regurgitation present. There is moderate pulmonary hypertension. The right luis carlos tricular systolic pressure, as measured by Doppler, is 42.81mmHg. Trace/mild (physiologic) pulmonic regurgitation. There is no pericardial effusion. Pleural effusion noted. CONCLUSIONS -------- 1. The left ventricular size is normal. 2. There is moderate concentric left ventricular hypertrophy. 3. Overall left ventricular systolic function is moderate-severely impaired with, an EF between 30 - 35 %. 4. Inferior Hypokinesis 5. Mid Basal Septal Hypokinesis. 6. The right ventricle is mild to moderately enlarged. 7. LA is moderately dilated 34-39 ml/m2 8. The right atrium is mildly enlarged. 9. Trace amount of aortic regurgitation. 10. Peak/mean gradient across the Aortic Valve is 42.51mmHg / 23.68mmHg. 11. There is moderate to severe aortic stenosis with dimensionless index 0.26. Degree of aortic sten osis may be underestimated due to low flow low gradient. Recommend YUVAL, CT calcium scoring or low do se dobutamine stress echo if clinically indicated. 12. Severe mitral annular calcification present. 13. Moderate mitral regurgitation is present. 14. There is moderate mitral stenosis with a mean gradient of 7mmHg at a heart rate of 74. 15. Moderate tricuspid regurgitation present. 16. There is moderate pulmonary hypertension. 17. The right ventricular systolic pressure, as measured by Doppler, is 42.81mmHg. 18. Trace/mild (physiologic) pulmonic regurgitation. 19. Pleural effusion noted. ADULT DAYCARE COORDINATOR: Demi Armenta RDCS
--- NOTE | 2021-02-09 13:38 | P.PN ---
Subjective Progress Note Date: 02/09/21 This is a 75-year-old female patient with a history of diabetes mellitus, dementia, depression, coronary artery disease with previous CABG 3, valve repair anticoagulated with Eliquis, carotid stenosis with bilateral carotid endarterectomies. He was brought into the emergency room early this morning wit h difficulty in breathing since last night. She had shortness of breath and chest tightness. Chest x-ray revealed small bilateral pleural effusions left greater than right. Ear consulted for the same. She is seen today in consultation on the selective care unit. She had been in atrial fibrillation with a rapid ventricular response. Currently on a Cardizem drip at 10 mg per hour. Continued on Eliquis. Currently maintaining O2 saturations in the upper 90s on 4 L/m per nasal cannula. She's been afebrile. White count 8.9. Hemoglobin 14.3. INR 1.1. Sodium 1:30. Potassium 4.9. Creatinine 0.71. Glucose 162. Troponin negative 2. Influenza screen negative. Perez virus screen negative. She has been initiated on ceftriaxone and azithromycin. On today's evaluation of , the patient is being seen for a follow-up. The patient has CHF, A. fib RVR, and the patient also has valvular heart disease with aortic and mitral stenosis probably mother the severity. The patient is also post coronary artery bypass surgery and previous history of bowel surgery and bilateral carotid endarterectomies. The patient is known to have dementia. She is a poor historian. Unable to volunteer much of history. Her chest x-ray was showing small bilateral pleural effusion slightly worse on the left. She was seen in consultation yesterday. For now, the patient on a 5 mg an hour. T his is being provided for rate control. The patient is also on anticoagulation with Eliquis. This will be placed on hold for possible thoracentesis significant be done with the next 24 hours regarding that left-sided pleural effusion. Awaiting the final echocardiogram results to assess LV function and valvular function. Meanwhile, I want to start the patient on diuretics with IV Bumex 1 mg every 12 hours. The patient has normal CBC, normal electrolytes, LDL level is at 127. Objective - Vital Signs Vital signs: Vital Signs Temp 97.8 F 02/09/21 08:50 Pulse 75 02/09/21 08:50 Resp 18 02/09/21 08:50 BP 91/58 02/09/21 08:50 Pulse Ox 99 02/09/21 08:50 Intake & Output 02/08/21 02/09/21 02/09/21 18:59 06:59 18:59 Intake Total 130 117.833 50 Output Total 200 300 Balance -70 -182.167 50 Weight 65.771 kg 64.2 kg Intake: Intake, IV Titration 130 117.833 50 Amount Diltiazem 125 mg In 50 117.833 Sodium Chloride 0.9% 100 ml @ 5 MG/HR 5 mls/hr IV .Q24H [facility] Rx#:[id number] Sodium Chloride 0.9% 500 30 ml 500 ml @ 999 mls/hr IV .Q31M [facility] Rx#:[id number] cefTRIAXone 1 gm In 50 50 Sodium Chloride 0.9% 50 ml @ 100 mls/hr IVPB Q24HR [facility] Rx#:[id number] Oral 0 Output: Urine 300 Urine/Stool Mix 200 Other: Voiding Method Toilet Toilet # Voids 1 1 1 # Bowel Movements 1 0 - Exam GENERAL EXAM: Alert, pleasant 75-year-old female patient, on 4 L nasal cannula, comfortable in no apparent distress. HEAD: Normocephalic. EYES: Normal reaction of pupils, equal size. NOSE: Clear with pink turbinates. THROAT: No erythema or exudates. NECK: No masses, no JVD. CHEST: No chest wall deformity. LUNGS: Equal air entry crackles in the bilateral posterior bases left greater than right. CVS: S1 and S2 normal with no audible murmur, regular rhythm. ABDOMEN: No hepatosplenomegaly, normal bowel sounds, no guarding or rigidity. SPINE: No scoliosis or deformity SKIN: No rashes CENTRAL NERVOUS SYSTEM: No focal deficits, tone is normal in all 4 extremities. EXTREMITIES: There is no peripheral edema. No clubbing, no cyanosis. Periph eral pulses are intact. - Labs CBC & Chem 7: 02/09/21 08:07 02/09/21 08:07 Labs: Abnormal Lab Results - Last 24 Hours (Table) 02/08/21 02/08/21 02/08/21 Range/Units 13:17 16:45 20:14 Lymphocytes # (1.0-4.8) k/uL Carbon Dioxide (22-30) mmol/L BUN (7-17) mg/dL Glucose (74-99) mg/dL POC Glucose (mg/dL) 108 H 111 H (75-99) mg/dL Total Protein (6.3-8.2) g/dL Albumin (3.5-5.0) g/dL LDL Cholesterol, Calc (0-99) mg/dL Urine Protein 2+ H (Negative) Urine Glucose (UA) Trace H (Negative) Urine Ketones 1+ H (Negative) Urine Bacteria Rare H (None) /hpf Hyaline Casts 3 H (0-2) /lpf Urine Mucus Rare H (None) /hpf 02/09/21 02/09/21 02/09/21 Range/Units 06:21 08:07 08:07 Lymphocytes # 0.7 L (1.0-4.8) k/uL Carbon Dioxide 32 H (22-30) mmol/L BUN 20 H (7-17) mg/dL Glucose 128 H (74-99) mg/dL POC Glucose (mg/dL) 127 H (75-99) mg/dL Total Protein 6.0 L (6.3-8.2) g/dL Albumin 3.1 L (3.5-5.0) g/dL LDL Cholesterol, Calc 127 H (0-99) mg/dL Urine Protein (Negative) Urine Glucose (UA) (Negative) Urine Ketones (Negative) Urine Bacteria (None) /hpf Hyaline Casts (0-2) /lpf Urine Mucus (None) /hpf 02/09/21 Range/Units 11:35 Lymphocytes # (1.0-4.8) k/uL Carbon Dioxide (22-30) mmol/L BUN (7-17) mg/dL Glucose (74-99) mg/dL POC Glucose (mg/dL) 144 H (75-99) mg/dL Total Protein (6.3-8.2) g/dL Albumin (3.5-5.0) g/dL LDL Cholesterol, Calc (0-99) mg/dL Urine Protein (Negative) Urine Glucose (UA) (Negative) Urine Ketones (Negative) Urine Bacteria (None) /hpf Hyaline Casts (0-2) /lpf Urine Mucus (None) /hpf Assessment and Plan Plan: 1 Atrial fibrillation with a rapid ventricular response, currently on a Cardizem drip. Anticoagulation was placed on hold in anticipation for thoracentesis of t he left lung. 2 Acute hypoxemic respiratory failure secondary to above and bilateral pleural effusions left greater than right , most likely secondary to CHF. 3 Coronary artery disease with previous coronary artery bypass grafting 4 CHF with impaired ejection fraction of around 30-35% and LV is moderately impaired. The Patient Has Segmental Wall Motion Abnormalities, There Is Moderate to Severe Aortic Stenosis and the Degree of Aortic Stenosis Could've Been Underestimated Due To Low Flow Gradients. There Was Also Severe Mitral Annular Calcification and Moderate Mitral Regurgitation and Moderate Degree of Mitral Stenosis with a Gradient of 7 MmHg and Moderate Degree of Pulmonary Hypertension with a PA Pressure of around 42. 5 Carotid stenosis status post bilateral carotid endarterectomy 6 Dementia 7 Diabetes mellitus 8 Hyperlipidemia 9 Hypertension Plan: Continue Cardizem drip for rate control, Coreg for rate control also Coreg 12.5 mg by mouth twice a day and the Cardizem can be transitioned to oral Cardizem at a dose of 30 mg by mouth twice a day IV Bumex 1 mg every 12 hours Monitor electrolytes Keep Eliquis on hold regarding the possibility of a left-sided thoracentesis. Ultrasound the chest was done and the patient was found to have an eye centimeters pocket in the left pleural space. Titrate the FiO2 as tolerated Echocardiogram results were noted We will continue to follow and make further recommendations based on her clinical status
[2021-02-09] MEDS: DILTIAZEM ORAL 30 MG TAB PO SCH ×2 (14:36→20:15)
[2021-02-09] MEDS: BUMETANIDE 0.25 MG/ML 4 ML VIAL IVP SCH (14:36)
--- NOTE | 2021-02-09 14:56 | P.PN ---
Subjective This is a 75-year-old female patient with a history of atrial flutter (EKG in 2019), Type 2 diabetes mellitus, dementia, depression, coronary artery disease with previous CABG 3, valve repair anticoagulated with Eliquis, carotid stenosis with bilateral carotid endarterectomies, hypertnsion, dyslipidemai . Patient follows in the office with Dr. Le. Patient presents emergency department, shortness of breath and chest tightness. She went into atrial fibrillation with rapid ventricular response was started on a Cardizem drip. She is on Eliquis. Chest x-ray revealed small bilateral pleural effusions left greater than right. Patient is allergic to lasix and statins 02/09/21 Echocardiogram- EF 30-35%, inferior hypokinesis, mid septal hypokinesis, RV is mildly to moderately enlarged, LA is moderately dilated, trace amount of aortic regurgitation, moderate to severe aortic stenosis may be underestimated due to low flow low gradient. moderate MR, moderate mitral stenosis, moderate TR, moderate pulmonary hypertension Patient seen and examined at bedside, no acute distress. Currently maintained on IV Cardizem 5 mg an hour, Eliquis, carvedilol 12.5 mg twice a day, aspirin 81 mg daily. Blood pressure 90/58, heart rate 75, afebrile, maintaining oxygen saturation 99% on 3 L nasal cannula telemetry reviewed patient currently in atr ial fibrillation ventricular rates controlled 70 to 80s GENERAL: Well-appearing, well-nourished and in no acute distress. NECK: Supple without JVD or thyromegaly. LUNGS: Breath sounds clear to auscultation bilaterally. Respiration equal and unlabored. No wheezes, rales or rhonchi. HEART: Irregular rate and rhythm systolic murmur heard at right sternal border, no rubs or gallops. S1 and S2 heard. EXTREMITIES: Normal range of motion, no edema. No clubbing or cyanosis. Peripheral pulses intact. ASSESSMENT: -Paroxysmal atrial fibrillation - on eliquis, is currently on hold for possible thoracentesis -History of Hypertension- currently hypotensive -Type 2 Diabetes -CAD s/p previous CABG 10 years ago at [facility] -Dyslipidemia- patient could not previous tolerate statin -Peripheral Vascular Disease PLAN: -Will stop cardizem drip, start Cardizem PO 30mg BID -Continue coreg -Elquis is on hold for possible thoracentesis today with pulmonary, restart eliquis as soon as possible per pulmonary -Continue cardiac telemetry. Objective - Vital Signs Vital signs: Vital Signs Temp 97.8 F 02/09/21 08:50 Pulse 75 02/09/21 08:50 Resp 18 02/09/21 08:50 BP 91/58 02/09/21 08:50 Pulse Ox 99 02/09/21 08:50 Intake & Output 02/08/21 02/09/21 02/09/21 18:59 06:59 18:59 Intake Total 130 117.833 50 Output Total 200 300 Balance -70 -182.167 50 Weight 65.771 kg 64.2 kg Intake: Intake, IV Titration 130 117.833 50 Amount Diltiazem 125 mg In 50 117.833 Sodium Chloride 0.9% 100 ml @ 5 MG/HR 5 mls/hr IV .Q24H [facility] Rx#:[id number] Sodium Chloride 0.9% 500 30 ml 500 ml @ 999 mls/hr IV .Q31M [facility] Rx#:[id number] cefTRIAXone 1 gm In 50 50 Sodium Chloride 0.9% 50 ml @ 100 mls/hr IVPB Q24HR [facility] Rx#:[id number] Oral 0 Output: Urine 300 Urine/Stool Mix 200 Other: Voiding Method Toilet Toilet # Voids 1 1 1 # Bowel Movements 1 0 - Labs CBC & Chem 7: 02/09/21 08:07 02/09/21 08:07 Labs: Abnormal Lab Results - Last 24 Hours (Table) 02/08/21 02/08/21 02/09/21 Range/Units 16:45 20:14 06:21 Lymphocytes # (1.0-4.8) k/uL Carbon Dioxide (22-30) mmol/L BUN (7-17) mg/dL Glucose (74-99) mg/dL POC Glucose (mg/dL) 108 H 111 H 127 H (75-99) mg/dL Total Protein (6.3-8.2) g/dL Albumin (3.5-5.0) g/dL LDL Cholesterol, Calc (0-99) mg/dL 02/09/21 02/09/21 02/09/21 Range/Units 08:07 08:07 11:35 Lymphocytes # 0.7 L (1.0-4.8) k/uL Carbon Dioxide 32 H (22-30) mmol/L BUN 20 H (7-17) mg/dL Glucose 128 H (74-99) mg/dL POC Glucose (mg/dL) 144 H (75-99) mg/dL Total Protein 6.0 L (6.3-8.2) g/dL Albumin 3.1 L (3.5-5.0) g/dL LDL Cholesterol, Calc 127 H (0-99) mg/dL
[2021-02-09 17:05] LABS: Glucose,Whole Blood 122 mg/dL (75-99)
--- NOTE | 2021-02-09 17:17 | CDI ---
Documentation Clarification Form Date: 02/09/2021 04:57:09 PM From: Jordyn Quiñones RN Admit Date: 02/08/2021 08:19:00 AM Patient Name: Lana Chew Visit Number: [id number] Discharge Date: ATTENTION: The Clinical Documentation Specialists (CDI) and [facility] Coding Staff appreciate your assistance in clarifying documentation. Please respond to the clarification below the line at the bottom and electronically sign. The CDI & [facility] Coding staff will review the response and follow-up if needed. Please note: Queries are made part of the Legal Health Record. If you have any questions, please contact the author of this message via ITS. Dr. Matthew Payne Your patient has the documented diagnosis of unspecified CHF 02/08 in the H&P. Additional information regarding the type, acuity of CHF is requested. History/Risk Factors: 75-year-old female presents to the ED from [facility] for shortness of breath and palpitations. Medical History Heart failure, HTN and [place] in 2009. Clinical Indicators: VS/Pulse OX 02/08: B/P 163/110; HR 149; Temp 97.5 Oral F; RR 19; SpO2 Echocardiogram Results 02/09: Chest X Ray 02/08: Left lower lobe infiltrate and small bilateral effusion stable. Treatment: 02/08 Coreg 12.5mg PO BID; 02/09 Bumex 1mg IVP BID. In your professional opinion, can you please clarify the [acuity and type] of CHF if known? [ ] Chronic Systolic Heart Failure (reduced EF) [ x ] Acute on Chronic Systolic Heart Failure (reduced EF) [ ] Heart failure ruled out. [ ] Other, please specify [ ] Unable to determine (Template Last Revised: November 2020) MTDD
[2021-02-09] MEDS: ESCITALOPRAM 5 MG TAB PO SCH (17:37)
[2021-02-09] MEDS: DONEPEZIL 10 MG TAB PO SCH (20:15)
[2021-02-09 20:35] LABS: Glucose,Whole Blood 129 mg/dL (75-99)
[2021-02-10 06:21] LABS: Glucose,Whole Blood 116 mg/dL (75-99)
[2021-02-10] MEDS: carvediloL 12.5 MG TAB PO SCH ×2 (06:28→15:59)
[2021-02-10 07:58] LABS: Basophils # (A) 0.1 k/uL (0-0.2); Basophils % (A) 1 %; Eosinophils # (A) 0.2 k/uL (0-0.7); Eosinophils % (A) 3 %; HCT 44.7 % (34.0-46.0); HGB 14.1 gm/dL (11.4-16.0); Lymphocytes # (A) 0.8 k/uL (1.0-4.8); Lymphocytes % (A) 14 %; MCH 28.7 pg (25.0-35.0); MCHC 31.6 g/dL (31.0-37.0); MCV 90.9 fL (80.0-100.0); Mean Platelet Volume 7.6; Monocytes # (A) 0.6 k/uL (0-1.0); Monocytes % (A) 10 %; Neutrophils # (A) 4.4 k/uL (1.3-7.7); Neutrophils % (A) 72 %; Platelet Count 205 k/uL (150-450); RBC 4.92 m/uL (3.80-5.40); RDW 13.5 % (11.5-15.5); WBC 6.1 k/uL (3.8-10.6)
[2021-02-10 08:15] LABS: ALT 27 U/L (4-34); AST 33 U/L (14-36); African American GFR (CKD) >90 (>60 ml/min/1.73 sqM); Albumin 3.8 g/dL (3.5-5.0); Alkaline Phosphatase 54 U/L (38-126); Anion Gap 6 mmol/L; Blood Urea Nitrogen 21 mg/dL (7-17); Calcium 9.5 mg/dL (8.4-10.2); Carbon Dioxide 34 mmol/L (22-30); Chloride 97 mmol/L (98-107); Glucose 130 mg/dL (74-99); Non-African American GFR(CKD) 82 (>60 ml/min/1.73 sqM); Potassium 4.2 mmol/L (3.5-5.1); Sodium 137 mmol/L (137-145); Total Bilirubin 1.3 mg/dL (0.2-1.3); Total Protein 6.8 g/dL (6.3-8.2)
--- NOTE | 2021-02-10 08:21 | XR ---
EXAMINATION TYPE: XR chest 1V portable DATE OF EXAM: 02/10/2021 CLINICAL HISTORY: chf. TECHNIQUE: Portable frontal view of the chest. COMPARISON: 02/08/2021 FINDINGS: Sternotomy wires. Normal cardiac mediastinal silhouette. Unchanged small right and small to moderate left pleural effusion. Persistent focal haziness at the right lung base. Chronic interstiti al coarsening. No pneumothorax. IMPRESSION: Unchanged radiographic appearance of the chest.
[2021-02-10] MEDS: DILTIAZEM ORAL 30 MG TAB PO SCH ×2 (08:29→20:24)
[2021-02-10] MEDS: ASPIRIN 81 MG PO SCH (08:29)
[2021-02-10] MEDS: AZITHROMYCIN 500 MG TAB PO SCH (08:30)
[2021-02-10] MEDS: BUMETANIDE 0.25 MG/ML 4 ML VIAL IVP SCH ×2 (08:30→20:25)
[2021-02-10] MEDS: MEMANTINE 10 MG TAB PO SCH ×2 (08:48→20:25)
--- NOTE | 2021-02-10 10:20 | P.PN ---
Subjective Progress Note Date: 02/10/21 Feels much better today, off in bed, shortness of breath significantly better. No chest pain, no abdominal pain. She has been off Cardizem drip. Objective - Vital Signs Vital signs: Vital Signs Temp 97.6 F 02/10/21 08:49 Pulse 82 02/10/21 08:49 Resp 18 02/10/21 08:49 BP 95/67 02/10/21 08:49 Pulse Ox 94 L 02/10/21 09:06 Intake & Output 02/09/21 02/10/21 02/10/21 18:59 06:59 18:59 Intake Total 290 240 Output Total 1400 500 Balance -1110 -260 Weight 60.8 kg Intake: Intake, IV Titration 50 Amount cefTRIAXone 1 gm In 50 Sodium Chloride 0.9% 50 ml @ 100 mls/hr IVPB Q24HR [facility] Rx#:[id number] Oral 240 240 Output: Urine 1400 500 Other: Voiding Method Toilet Toilet Toilet # Voids 6 2 - Exam Constitutional: No acute distress, conversant, pleasant Eyes: Anicteric sclerae ENMT: NC/AT Neck:Supple, FROM Lungs: Decreased breath sounds, no wheezing Cardiovascular: Irregular rhythm, No murmurs, gallops, or rubs no peripheral edema Abdominal: Soft Nontender, nom distended, no guarding, no rebound or rigidity, Normoactive bowel sounds Skin: Normal temperature, tone, texture, turgor Extremities:No digital cyanosis No clubbing, Pedal pulses intact and symmetrical Radial pulses intact and symmetrical Normal gait and station, No calf tenderness Psychiatric: Alert and oriented to person, place and time, Appropriate affect Intact judgement Neuro: Muscles Strength 5/5 in all 4 extremities, Sensation to light touch grossly present throughout, Cranial nerves II-XII grossly intact. No focal sensory deficits - Labs CBC & Chem 7: 02/10/21 07:13 02/10/21 07:13 Labs: Abnormal Lab Results - Last 24 Hours (Table) 02/09/21 02/09/21 02/09/21 Range/Units 11:35 17:01 20:34 Lymphocytes # (1.0-4.8) k/uL Chloride (98-107) mmol/L Carbon Dioxide (22-30) mmol/L BUN (7-17) mg/dL Glucose (74-99) mg/dL POC Glucose (mg/dL) 144 H 122 H 129 H (75-99) mg/dL 02/10/21 02/10/21 02/10/21 Range/Units 06:19 07:13 07:13 Lymphocytes # 0.8 L (1.0-4.8) k/uL Chloride 97 L (98-107) mmol/L Carbon Dioxide 34 H (22-30) mmol/L BUN 21 H (7-17) mg/dL Glucose 130 H (74-99) mg/dL POC Glucose (mg/dL) 116 H (75-99) mg/dL Assessment and Plan Plan: 1. Paroxysmal atrial fibrillation with RVR: off Cardizem drip, continue Eliquis and Coreg. cardiology consult, input appreciated 2. Left lower lobe pneumonia with bilateral pleural effusion and congestion with 9 cm fluid pocket: Continue Rocephin and Zithromax. Oxygen and bronchodilators as indicated. Possible thoracentesis . Appreciate pulmonology input 3. Depression: Continue Lexapro 4. Dementia unspecified type without behavioral changes: Continue Aricept/Namenda 5. Essential hypertension: Continue Coreg 6. Diabetes type 2 with hyperglycemia: Continue on insulin sliding scale 7. Acute on chronic systolic congestive heart failure ejection fraction 30-35% continue IV Bumex twice a day 1 mg. DVT prophylaxis: Eliquis Treatment plan discussed with the patient and the nurse Disposition: Home in 1-2 days
[2021-02-10 12:03] LABS: Glucose,Whole Blood 145 mg/dL (75-99)
--- NOTE | 2021-02-10 13:36 | P.PN ---
Subjective Progress Note Date: 02/10/21 This is a 75-year-old female patient with a history of diabetes mellitus, dementia, depression, coronary artery disease with previous CABG 3, valve repair anticoagulated with Eliquis, carotid stenosis with bilateral carotid endarterectomies. He was brought into the emergency room early this morning wit h difficulty in breathing since last night. She had shortness of breath and chest tightness. Chest x-ray revealed small bilateral pleural effusions left greater than right. Ear consulted for the same. She is seen today in consultation on the selective care unit. She had been in atrial fibrillation with a rapid ventricular response. Currently on a Cardizem drip at 10 mg per hour. Continued on Eliquis. Currently maintaining O2 saturations in the upper 90s on 4 L/m per nasal cannula. She's been afebrile. White count 8.9. Hemoglobin 14.3. INR 1.1. Sodium 1:30. Potassium 4.9. Creatinine 0.71. Glucose 162. Troponin negative 2. Influenza screen negative. Perez virus screen negative. She has been initiated on ceftriaxone and azithromycin. On today's evaluation of , the patient is being seen for a follow-up. The patient has CHF, A. fib RVR, and the patient also has valvular heart disease with aortic and mitral stenosis probably mother the severity. The patient is also post coronary artery bypass surgery and previous history of bowel surgery and bilateral carotid endarterectomies. The patient is known to have dementia. She is a poor historian. Unable to volunteer much of history. Her chest x-ray was showing small bilateral pleural effusion slightly worse on the left. She was seen in consultation yesterday. For now, the patient on a 5 mg an hour. T his is being provided for rate control. The patient is also on anticoagulation with Eliquis. This will be placed on hold for possible thoracentesis significant be done with the next 24 hours regarding that left-sided pleural effusion. Awaiting the final echocardiogram results to assess LV function and valvular function. Meanwhile, I want to start the patient on diuretics with IV Bumex 1 mg every 12 hours. The patient has normal CBC, normal electrolytes, LDL level is at 127. On 02/10/2021, I'm seeing the patient for a follow-up. Clinically the patient is improving and the patient is less short of breath and she is currently on room air oxygen. Cardiac rhythm is still in atrial fibrillation. The patient's echocardiogram shows an EF of around 30-35% and the patient had moderate to se rose aortic stenosis and addition to severe mitral stenosis and regurgitation. The patient has moderate degree of pulmonary hypertension with a PA pressure of 42. The patient was started on diuretics and the patient is diuresing well. A repeat chest x-ray was done today. There is still an ongoing presence of a left-sided pleural effusion which probably small. The patient is currently on Bumex 1 mg IV every 12 hours. She remains in a negative fluid balance. I restarted back her anticoagulation as I do not intended to perform any thoracentesis. The patient is clinically improving patient is currently on room air oxygen. No chest pain. She remains on empiric antibiotic coverage which could obviously be stopped. He is on long-term medical condition with Eliquis 5 mg by mouth twice a day. She is also on Cardizem 30 mg by mouth twice a day. She remains in atrial fibrillation. Rate is controlled for now. Objective - Vital Signs Vital signs: Vital Signs Temp 97.6 F 02/10/21 08:49 Pulse 82 02/10/21 08:49 Resp 18 02/10/21 08:49 BP 95/67 02/10/21 08:49 Pulse Ox 94 L 02/10/21 09:06 Intake & Output 02/09/21 02/10/21 02/10/21 18:59 06:59 18:59 Intake Total 290 340 Output Total 1400 500 Balance -1110 -160 Weight 60.8 kg Intake: Intake, IV Titration 50 Amount cefTRIAXone 1 gm In 50 Sodium Chloride 0.9% 50 ml @ 100 mls/hr IVPB Q24HR [facility] Rx#:[id number] Oral 240 340 Output: Urine 1400 500 Other: Voiding Method Toilet Toilet Toilet # Voids 6 2 - Exam GENERAL EXAM: Alert, pleasant 75-year-old female patient, on room air oxygen HEAD: Normocephalic. EYES: Normal reaction of pupils, equal size. NOSE: Clear with pink turbinates. THROAT: No erythema or exudates. NECK: No masses, no JVD. CHEST: No chest wall deformity. LUNGS: Equal air entry crackles in the bilateral posterior bases left greater than right. CVS: S1 and S2 normal with no audible murmur, regular rhythm. ABDOMEN: No hepatosplenomegaly, normal bowel sounds, no guarding or rigidity. SPINE: No scoliosis or deformity SKIN: No rashes CENTRAL NERVOUS SYSTEM: No focal deficits, tone is normal in all 4 extremities. EXTREMITIES: There is no peripheral edema. No clubbing, no cyanosis. Peripheral pulses are intact. - Labs CBC & Chem 7: 02/10/21 07:13 02/10/21 07:13 Labs: Abnormal Lab Results - Last 24 Hours (Table) 02/09/21 02/09/21 02/10/21 Range/Units 17:01 20:34 06:19 Lymphocytes # (1.0-4.8) k/uL Chloride (98-107) mmol/L Carbon Dioxide (22-30) mmol/L BUN (7-17) mg/dL Glucose (74-99) mg/dL POC Glucose (mg/dL) 122 H 129 H 116 H (75-99) mg/dL 02/10/21 02/10/21 02/10/21 Range/Units 07:13 07:13 12:01 Lymphocytes # 0.8 L (1.0-4.8) k/uL Chloride 97 L (98-107) mmol/L Carbon Dioxide 34 H (22-30) mmol/L BUN 21 H (7-17) mg/dL Glucose 130 H (74-99) mg/dL POC Glucose (mg/dL) 145 H (75-99) mg/dL Assessment and Plan Plan: 1 Atrial fibrillation with a rapid ventricular response, rate is controlled, currently on Cardizem 30 mg by mouth twice a day and Coreg 12.5 mg by mouth t wice a day and the patient will be restarted on Eliquis. 2 Acute hypoxemic respiratory failure secondary to above and bilateral pleural effusions left greater than right , most likely secondary to CHF. The patient has a persistent left-sided pleural effusion. No plans for thoracentesis based on stability and improvement with diuresis. 3 Coronary artery disease with previous coronary artery bypass grafting 4 CHF with impaired ejection fraction of around 30-35% and LV is moderately impaired. The Patient Has Segmental Wall Motion Abnormalities, There Is Moderate to Severe Aortic Stenosis and the Degree of Aortic Stenosis Could've Been Underestimated Due To Low Flow Gradients. There Was Also Severe Mitral Annular Calcification and Moderate Mitral Regurgitation and Moderate Degree of Mitral Stenosis with a Gradient of 7 MmHg and Moderate Degree of Pulmonary Hypertension with a PA Pressure of around 42. 5 Carotid stenosis status post bilateral carotid endarterectomy 6 Dementia 7 Diabetes mellitus 8 Hyperlipidemia 9 Hypertension Plan: Continue Coreg 12.5 mg by mouth twice a day and Cardizem at a dose of 30 mg by mouth twice a day Long-term anticoagulation with Eliquis 5 mg by mouth twice a day IV Bumex 1 mg every 12 hours Echocardiogram results were noted Overall condition is stable We will continue to follow and make further recommendations based on her clinical status
[2021-02-10] MEDS: APIXABAN 5 MG TAB PO SCH ×2 (15:59→20:26)
[2021-02-10] MEDS: ESCITALOPRAM 5 MG TAB PO SCH (15:59)
--- NOTE | 2021-02-10 16:29 | P.PN ---
Subjective This is a 75-year-old female patient with a history of atrial flutter (EKG in 2019), Type 2 diabetes mellitus, dementia, depression, coronary artery disease with previous CABG 3, valve repair anticoagulated with Eliquis, carotid stenosis with bilateral carotid endarterectomies, hypertnsion, dyslipidemai . Patient follows in the office with Dr. Le. Patient presents emergency department, shortness of breath and chest tightness. She went into atrial fibrillation with rapid ventricular response was started on a Cardizem drip. She is on Eliquis. Chest x-ray revealed small bilateral pleural effusions left greater than right. Patient is allergic to lasix and statins 02/09/21 Echocardiogram- EF 30-35%, inferior hypokinesis, mid septal hypokinesis, RV is mildly to moderately enlarged, LA is moderately dilated, trace amount of aortic regurgitation, moderate to severe aortic stenosis may be underestimated due to low flow low gradient. moderate MR, moderate mitral stenosis, moderate TR, moderate pulmonary hypertension 02/10/21: Patient seen and examined at bedside, no acute distress. Currently maintained on Cardizem PO 30mg BID, Eliquis 5mg BID, carvedilol 12.5 mg twice a day, aspirin 81 mg daily. Blood pressure 95/67, heart rate 82, afebrile, maintaining oxygen saturation 99% on 3 L nasal cannula telemetry reviewed patient currently in atrial fibrillation ventricular rates controlled 70 to 80s. Repeat chest x-ray today with unchanged small right and small to moderate left pleural effusion. GENERAL: Well-appearing, well-nourished and in no acute distress. NECK: Supple without JVD or thyromegaly. LUNGS: Breath sounds clear to auscultation bilaterally. Respiration equal and unlabored. No wheezes, rales or rhonchi. HEART: Irregular rate and rhythm systolic murmur heard at right sternal border, no rubs or gallops. S1 and S2 heard. EXTREMITIES: Normal range of motion, no edema. No clubbing or cyanosis. Peripheral pulses intact. ASSESSMENT: -Paroxysmal atrial fibrillation - on eliquis, -History of Hypertension- currently hypotensive -Type 2 Diabetes -CAD s/p previous CABG 10 years ago at [facility] -Dyslipidemia- patient could not previous tolerate statin -Peripheral Vascular Disease -Left sided pleural effusion- pulmonary following patient started on IV Bumex 1 mg twice a day, patient was restarted on her anticoagulation by pulmonary who do not intend to perform a thoracentesis. PLAN -Patient remains in atrial fibrillation, heart rate is controlled. -From cardiology perspective patient appears stable to be discharged home. -Recommend continuing Cardizem PO 30mg BID, coreg 12.5 mg twice a day -Elquis 5mg BID -Continue cardiac telemetry while inpatient -Per primary and pulmonary positive plan to discharge patient tomorrow. Objective - Vital Signs Vital signs: Vital Signs Temp 97.6 F 02/10/21 08:49 Pulse 82 02/10/21 08:49 Resp 18 02/10/21 08:49 BP 95/67 02/10/21 08:49 Pulse Ox 94 L 02/10/21 09:06 Intake & Output 02/09/21 02/10/21 02/10/21 18:59 06:59 18:59 Intake Total 290 240 Output Total 1400 500 Balance -1110 -260 Weight 60.8 kg Intake: Intake, IV Titration 50 Amount cefTRIAXone 1 gm In 50 Sodium Chloride 0.9% 50 ml @ 100 mls/hr IVPB Q24HR [facility] Rx#:[id number] Oral 240 240 Output: Urine 1400 500 Other: Voiding Method Toilet Toilet Toilet # Voids 6 2 - Labs CBC & Chem 7: 02/10/21 07:13 02/10/21 07:13 Labs: Abnormal Lab Results - Last 24 Hours (Table) 02/09/21 02/09/21 02/09/21 Range/Units 11:35 17:01 20:34 Lymphocytes # (1.0-4.8) k/uL Chloride (98-107) mmol/L Carbon Dioxide (22-30) mmol/L BUN (7-17) mg/dL Glucose (74-99) mg/dL POC Glucose (mg/dL) 144 H 122 H 129 H (75-99) mg/dL 02/10/21 02/10/21 02/10/21 Range/Units 06:19 07:13 07:13 Lymphocytes # 0.8 L (1.0-4.8) k/uL Chloride 97 L (98-107) mmol/L Carbon Dioxide 34 H (22-30) mmol/L BUN 21 H (7-17) mg/dL Glucose 130 H (74-99) mg/dL POC Glucose (mg/dL) 116 H (75-99) mg/dL
[2021-02-10 20:20] LABS: Glucose,Whole Blood 125 mg/dL (75-99)
[2021-02-10] MEDS: DONEPEZIL 10 MG TAB PO SCH (20:25)
[2021-02-11 06:31] LABS: Glucose,Whole Blood 136 mg/dL (75-99)
[2021-02-11] MEDS: carvediloL 12.5 MG TAB PO SCH ×2 (06:35→17:05)
--- NOTE | 2021-02-11 07:40 | XR ---
EXAMINATION TYPE: XR chest 1V portable DATE OF EXAM: 02/11/2021 HISTORY: Shortness of breath. COMPARISON: 02/10/2021 TECHNIQUE: Single view of the chest is submitted. FINDINGS: Demonstrated are scattered senescent parenchymal change. Hyperinflation compatible with COPD. Persistent left lower lobe opacity which may reflect a combination of effusion, atelectasis and/or in filtrate. The heart is stable. Hilar and mediastinal structures are within normal limits. Degenerative changes are seen of the dorsal spine. IMPRESSION: 1. Persistent left lower lobe opacity which may reflect a combination of effusion, atelectasis and/o r infiltrate.
[2021-02-11 07:47] LABS: Basophils % (A) 1 %; Eosinophils # (A) 0.2 k/uL (0-0.7); Eosinophils % (A) 3 %; HGB 14.9 gm/dL (11.4-16.0); Lymphocytes # (A) 0.9 k/uL (1.0-4.8); Lymphocytes % (A) 20 %; MCH 29.7 pg (25.0-35.0); MCHC 33.1 g/dL (31.0-37.0); MCV 89.5 fL (80.0-100.0); Mean Platelet Volume 7.9; Monocytes # (A) 0.5 k/uL (0-1.0); Monocytes % (A) 9 %; Neutrophils # (A) 3.1 k/uL (1.3-7.7); Neutrophils % (A) 66 %; Platelet Count 206 k/uL (150-450); RBC 5.03 m/uL (3.80-5.40); RDW 13.4 % (11.5-15.5); WBC 4.8 k/uL (3.8-10.6)
[2021-02-11 08:10] LABS: Albumin 3.9 g/dL (3.5-5.0); Calcium 9.6 mg/dL (8.4-10.2); Potassium 3.5 mmol/L (3.5-5.1); Total Bilirubin 1.3 mg/dL (0.2-1.3); Total Protein 7.1 g/dL (6.3-8.2)
--- NOTE | 2021-02-11 08:53 | P.PN ---
Subjective Progress Note Date: 02/11/21 Feels okay today, no chest pain no abdominal pain, no nausea no vomiting. Heart rate stable Objective - Vital Signs Vital signs: Vital Signs Temp 97.8 F 02/11/21 03:14 Pulse 79 02/11/21 03:14 Resp 16 02/11/21 03:14 BP 91/60 02/11/21 03:14 Pulse Ox 93 L 02/11/21 03:14 Intake & Output 02/10/21 02/11/21 02/11/21 18:59 06:59 18:59 Intake Total 580 550 240 Output Total 502 1300 300 Balance 78 -750 -60 Weight 42 kg Intake: Oral 580 550 240 Output: Urine 502 1300 300 Other: Voiding Method Toilet Toilet # Voids 600 - Exam Constitutional: No acute distress, conversant, pleasant Eyes: Anicteric sclerae ENMT: NC/AT Neck:Supple, FROM Lungs: Decreased breath sounds, no wheezing Cardiovascular: Irregular rhythm, No murmurs, gallops, or rubs no peripheral edema Abdominal: Soft Nontender, nom distended, no rebound or rigidity, Normoactive bowel sounds Skin: Normal temperature Extremities:No digital cyanosis No clubbing, Pedal pulses intact and symmetrical Radial pulses intact and symmetrical Normal gait and station, No calf tenderness Psychiatric: Alert and oriented to person, place and time, Appropriate affect Intact judgement Neuro: Muscles Strength 5/5 in all 4 extremities, Sensation to light touch grossly present throughout, Cranial nerves II-XII grossly intact. No focal sensory deficits - Labs CBC & Chem 7: 02/11/21 07:09 02/11/21 07:09 Labs: Abnormal Lab Results - Last 24 Hours (Table) 02/10/21 02/10/21 02/11/21 Range/Units 12:01 20:11 06:28 Lymphocytes # (1.0-4.8) k/uL Sodium (137-145) mmol/L Chloride (98-107) mmol/L Carbon Dioxide (22-30) mmol/L BUN (7-17) mg/dL Glucose (74-99) mg/dL POC Glucose (mg/dL) 145 H 125 H 136 H (75-99) mg/dL 02/11/21 02/11/21 Range/Units 07:09 07:09 Lymphocytes # 0.9 L (1.0-4.8) k/uL Sodium 136 L (137-145) mmol/L Chloride 93 L (98-107) mmol/L Carbon Dioxide 38 H (22-30) mmol/L BUN 24 H (7-17) mg/dL Glucose 132 H (74-99) mg/dL POC Glucose (mg/dL) (75-99) mg/dL Assessment and Plan Plan: 1. Paroxysmal atrial fibrillation with RVR: continue Eliquis and Coreg. cardiology consult, input appreciated, heart rate much better. 2. Left lower lobe pneumonia with bilateral pleural effusion and congestion with 9 cm fluid pocket: Continue Rocephin and Zithromax. Oxygen and bronchodilators as indicated. Appreciate pulmonology input 3. Depression: Continue Lexapro 4. Dementia unspecified type without behavioral changes: Continue Aricept/Namenda 5. Essential hypertension: Continue Coreg 6. Diabetes type 2 with hyperglycemia: Continue on insulin sliding scale 7. Acute on chronic systolic congestive heart failure ejection fraction 30-35% with moderate to severe aortic stenosis: continue IV Bumex twice a day 1 mg. DVT prophylaxis: Eliquis Treatment plan discussed with the patient Disposition: Home in 1-2 days once clinically better.
[2021-02-11] MEDS: BUMETANIDE 0.25 MG/ML 4 ML VIAL IVP SCH (09:04)
[2021-02-11] MEDS: ASPIRIN 81 MG PO SCH (09:05)
[2021-02-11] MEDS: DILTIAZEM ORAL 30 MG TAB PO SCH ×2 (09:05→19:51)
[2021-02-11] MEDS: APIXABAN 5 MG TAB PO SCH ×2 (09:05→19:51)
[2021-02-11] MEDS: AZITHROMYCIN 500 MG TAB PO SCH (09:05)
[2021-02-11] MEDS: MEMANTINE 10 MG TAB PO SCH ×2 (09:05→19:50)
[2021-02-11] MEDS ORDERED: SODIUM CHLORIDE 0.9% 500 ML 500 ML IV ONE (09:17)
[2021-02-11 11:13] VITALS: BMI 20.1
--- NOTE | 2021-02-11 11:14 | P.PN ---
Subjective Progress Note Date: 02/11/21 This is a 75-year-old female patient with a history of diabetes mellitus, dementia, depression, coronary artery disease with previous CABG 3, valve repair anticoagulated with Eliquis, carotid stenosis with bilateral carotid endarterectomies. He was brought into the emergency room early this morning wit h difficulty in breathing since last night. She had shortness of breath and chest tightness. Chest x-ray revealed small bilateral pleural effusions left greater than right. Ear consulted for the same. She is seen today in consultation on the selective care unit. She had been in atrial fibrillation with a rapid ventricular response. Currently on a Cardizem drip at 10 mg per hour. Continued on Eliquis. Currently maintaining O2 saturations in the upper 90s on 4 L/m per nasal cannula. She's been afebrile. White count 8.9. Hemoglobin 14.3. INR 1.1. Sodium 130. Potassium 4.9. Creatinine 0.71. Glucose 162. Troponin negative 2. Influenza screen negative. Perez virus screen negative. She has been initiated on ceftriaxone and azithromycin. On today's evaluation of , the patient is being seen for a follow-up. The patient has CHF, A. fib RVR, and the patient also has valvular heart disease with aortic and mitral stenosis probably mother the severity. The patient is also post coronary artery bypass surgery and previous history of bowel surgery and bilateral carotid endarterectomies. The patient is known to have dementia. She is a poor historian. Unable to volunteer much of history. Her chest x-ray was showing small bilateral pleural effusion slightly worse on the left. She was seen in consultation yesterday. For now, the patient on a 5 mg an hour. Th is is being provided for rate control. The patient is also on anticoagulation with Eliquis. This will be placed on hold for possible thoracentesis significant be done with the next 24 hours regarding that left-sided pleural effusion. Awaiting the final echocardiogram results to assess LV function and valvular function. Meanwhile, I want to start the patient on diuretics with IV Bumex 1 mg every 12 hours. The patient has normal CBC, normal electrolytes, LDL level is at 127. On 02/10/2021, I'm seeing the patient for a follow-up. Clinically the patient is improving and the patient is less short of breath and she is currently on room air oxygen. Cardiac rhythm is still in atrial fibrillation. The patient's echocardiogram shows an EF of around 30-35% and the patient had moderate to sev ere aortic stenosis and addition to severe mitral stenosis and regurgitation. The patient has moderate degree of pulmonary hypertension with a PA pressure of 42. The patient was started on diuretics and the patient is diuresing well. A repeat chest x-ray was done today. There is still an ongoing presence of a left-sided pleural effusion which probably small. The patient is currently on Bumex 1 mg IV every 12 hours. She remains in a negative fluid balance. I restarted back her anticoagulation as I do not intended to perform any thoracentesis. The patient is clinically improving patient is currently on room air oxygen. No chest pain. She remains on empiric antibiotic coverage which c ould obviously be stopped. He is on long-term medical condition with Eliquis 5 mg by mouth twice a day. She is also on Cardizem 30 mg by mouth twice a day. She remains in atrial fibrillation. Rate is controlled for now. On today's evaluation of 02/11/2021, the patient remains on 2 L of oxygen , Pulse is around 93%. Chest x-ray showing a small left-sided pleural effusion. No new complaints. The white cell count is at 4.8 with a hemoglobin of 14.9, sodium is at 136, BUN is 24 with a creatinine of 0.9, X all within normal limits. She remains on Correctol 0.5 mg by mouth twice a day. She is also on Cardizem 30 g by mouth twice a day. She is on long-term medical condition with Eliquis 5 mg by mouth twice a day. She remains on Bumex and this has been switched to oral 0.5 mg by mouth twice a day. No new complaints. Her weight is stable. She is resting comfortably in bed. She is able to lay down flat. Trachea is under adequate control. On 2 L of oxygen by nasal cannula and we'll check her pulse ox on room air. Objective - Vital Signs Vital signs: Vital Signs Temp 97.8 F 02/11/21 03:14 Pulse 79 02/11/21 03:14 Resp 16 02/11/21 03:14 BP 91/60 02/11/21 03:14 Pulse Ox 93 L 02/11/21 03:14 Intake & Output 02/10/21 02/11/21 02/11/21 18:59 06:59 18:59 Intake Total 580 550 480 Output Total 502 1300 300 Balance 78 -750 180 Weight 42 kg Intake: Oral 580 550 480 Output: Urine 502 1300 300 Other: Voiding Method Toilet Toilet # Voids 600 - Exam GENERAL EXAM: Alert, pleasant 75-year-old female patient, on room air oxygen HEAD: Normocephalic. EYES: Normal reaction of pupils, equal size. NOSE: Clear with pink turbinates. THROAT: No erythema or exudates. NECK: No masses, no JVD. CHEST: No chest wall deformity. LUNGS: Equal air entry crackles in the bilateral posterior bases left greater than right. CVS: S1 and S2 normal with no audible murmur, regular rhythm. ABDOMEN: No hepatosplenomegaly, normal bowel sounds, no guarding or rigidity. SPINE: No scoliosis or deformity SKIN: No rashes CENTRAL NERVOUS SYSTEM: No focal deficits, tone is normal in all 4 extremities. EXTREMITIES: There is no peripheral edema. No clubbing, no cyanosis. Peripheral pulses are intact. - Labs CBC & Chem 7: 02/11/21 07:09 02/11/21 07:09 Labs: Abnormal Lab Results - Last 24 Hours (Table) 02/10/21 02/10/21 02/11/21 Range/Units 12:01 20:11 06:28 Lymphocytes # (1.0-4.8) k/uL Sodium (137-145) mmol/L Chloride (98-107) mmol/L Carbon Dioxide (22-30) mmol/L BUN (7-17) mg/dL Glucose (74-99) mg/dL POC Glucose (mg/dL) 145 H 125 H 136 H (75-99) mg/dL 02/11/21 02/11/21 Range/Units 07:09 07:09 Lymphocytes # 0.9 L (1.0-4.8) k/uL Sodium 136 L (137-145) mmol/L Chloride 93 L (98-107) mmol/L Carbon Dioxide 38 H (22-30) mmol/L BUN 24 H (7-17) mg/dL Glucose 132 H (74-99) mg/dL POC Glucose (mg/dL) (75-99) mg/dL Assessment and Plan Plan: 1 Atrial fibrillation with a rapid ventricular response, rate is controlled, currently on Cardizem 30 mg by mouth twice a day and Coreg 12.5 mg by mouth twice a day and the patient will be restarted on Eliquis. Fibrillation remains under adequate control for now. She is anticoagulated. Rate is controlled. 2 Acute hypoxemic respiratory failure secondary to above and bilateral pleural effusions left greater than right , most likely secondary to CHF. The patient has a persistent left-sided pleural effusion. No plans for thoracentesis based on stability and improvement with diuresis. Currently she is on 2 L and the patient will be evaluated on room air oxygen. 3 Coronary artery disease with previous coronary artery bypass grafting 4 CHF with impaired ejection fraction of around 30-35% and LV is moderately impaired. CHF is compensated at this point in time. She has segmental wall motion abnormalities with impaired left ventricular ejection fraction and she also has moderate to severe aortic stenosis, moderate to severe mitral stenosis and moderate to severe pulmonary hypertension. 5 Carotid stenosis status post bilateral carotid endarterectomy 6 Dementia 7 Diabetes mellitus 8 Hyperlipidemia 9 Hypertension Plan: Continue Coreg 12.5 mg by mouth twice a day and Cardizem at a dose of 30 mg by mouth twice a day Long-term anticoagulation with Eliquis 5 mg by mouth twice a day IV Bumex has been discontinued and the patient has been switched to oral Bumex 0.5 mg by mouth twice a day Small left-sided pleural effusion persists and is essentially related to CHF Echocardiogram results were noted Overall condition is stable Checked the pulse ox on room air and eliminate oxygen and there is no need for oxygen supplementation and the patient's pulse ox remains above 90%. Discharge planning is in progress. Pulmonary critical care services will sign off.
[2021-02-11 11:37] LABS: Glucose,Whole Blood 179 mg/dL (75-99)
--- NOTE | 2021-02-11 13:01 | P.PN ---
Subjective This is a 75-year-old female patient with a history of atrial flutter (EKG in 2019), Type 2 diabetes mellitus, dementia, depression, coronary artery disease with previous CABG 3, valve repair anticoagulated with Eliquis, carotid stenosis with bilateral carotid endarterectomies, hypertnsion, dyslipidemai . Patient follows in the office with Dr. Le. Patient presents emergency department, shortness of breath and chest tightness. She went into atrial fibrillation with rapid ventricular response was started on a Cardizem drip. She is on Eliquis. Chest x-ray revealed small bilateral pleural effusions left greater than right. Patient is allergic to lasix and statins 02/09/21 Echocardiogram- EF 30-35%, inferior hypokinesis, mid septal hypokinesis, RV is mildly to moderately enlarged, LA is moderately dilated, trace amount of aortic regurgitation, moderate to severe aortic stenosis may be underestimated due to low flow low gradient. moderate MR, moderate mitral stenosis, moderate TR, moderate pulmonary hypertension 02/10/21: Patient seen and examined at bedside, no acute distress. Currently maintained on Cardizem PO 30mg BID, Eliquis 5mg BID, carvedilol 12.5 mg twice a day, aspi rin 81 mg daily. Blood pressure 95/67, heart rate 82, afebrile, maintaining oxygen saturation 99% on 3 L nasal cannula telemetry reviewed patient currently in atrial fibrillation ventricular rates controlled 70 to 80s. Repeat chest x-ray today with unchanged small right and small to moderate left pleural effusion. 02/11/2021: Patient seen at bedside, appears short of breath. Patient also complains of some lightheadedness, dizziness. Blood pressure 66/44, heart rate is 84, patient is alert and oriented 3. Patient is currently being maintained on Bumex 1 mg twice a day, Cardizem PO 30mg BID, Eliquis 5mg BID, carvedilol 12.5 mg twice a day, aspirin 81 mg daily. Patient continues to be in atrial fibrillation in the 70s to 80s. Associated with persistent left lower lobe opacity which may reflect a combination of effusion versus atelectasis GENERAL: Appears tired, slight short of breath NECK: Supple without JVD or thyromegaly. LUNGS: Breath sounds clear to auscultation bilaterally. Respiration equal and unlabored. No wheezes, rales or rhonchi. HEART: Irregular rate and rhythm systolic murmur heard at right sternal border, no rubs or gallops. S1 and S2 heard. EXTREMITIES: Normal range of motion, no edema. No clubbing or cyanosis. Peripheral pulses intact. ASSESSMENT: -Paroxysmal atrial fibrillation - on eliquis, -History of Hypertension- currently hypotensive -Type 2 Diabetes -CAD s/p previous CABG 10 years ago at [facility] -Dyslipidemia- patient could not previous tolerate statin -Peripheral Vascular Disease -Left sided pleural effusion- pulmonary following patient started on IV Bumex 1 mg twice a day, patient was restarted on her anticoagulation by pulmonary who do not intend to perform a thoracentesis. PLAN -Will hold patient's bumex today due to hypotension -Will administer 150cc IV Bolus x 2 -Continue to monitor Blood pressure -Transition to IRA Bumex 0.5mg to start tomorrow -Patient remains in atrial fibrillation, heart rate is controlled. -Recommend continuing Cardizem PO 30mg BID, coreg 12.5 mg twice a day and Eliquis 5mg BID Objective - Vital Signs Vital signs: Vital Signs Temp 97.9 F 02/11/21 08:00 Pulse 84 02/11/21 08:00 Resp 18 02/11/21 08:55 BP 110/73 02/11/21 09:30 Pulse Ox 88 L 02/11/21 08:55 Intake & Output 02/10/21 02/11/21 02/11/21 18:59 06:59 18:59 Intake Total 580 550 480 Output Total 502 1300 300 Balance 78 -750 180 Weight 42 kg 58.423 kg Intake: Oral 580 550 480 Output: Urine 502 1300 300 Other: Voiding Method Toilet Toilet Toilet # Voids 600 - Labs CBC & Chem 7: 02/11/21 07:09 02/11/21 07:09 Labs: Abnormal Lab Results - Last 24 Hours (Table) 02/10/21 02/11/21 02/11/21 Range/Units 20:11 06:28 07:09 Lymphocytes # (1.0-4.8) k/uL Sodium 136 L (137-145) mmol/L Chloride 93 L (98-107) mmol/L Carbon Dioxide 38 H (22-30) mmol/L BUN 24 H (7-17) mg/dL Glucose 132 H (74-99) mg/dL POC Glucose (mg/dL) 125 H 136 H (75-99) mg/dL 02/11/21 02/11/21 Range/Units 07:09 11:36 Lymphocytes # 0.9 L (1.0-4.8) k/uL Sodium (137-145) mmol/L Chloride (98-107) mmol/L Carbon Dioxide (22-30) mmol/L BUN (7-17) mg/dL Glucose (74-99) mg/dL POC Glucose (mg/dL) 179 H (75-99) mg/dL
[2021-02-11 13:28] VITALS: RESP 16
[2021-02-11 16:36] LABS: Glucose,Whole Blood 91 mg/dL (75-99)
[2021-02-11] MEDS: ESCITALOPRAM 5 MG TAB PO SCH (17:05)
[2021-02-11] MEDS: DONEPEZIL 10 MG TAB PO SCH (19:50)
[2021-02-11 19:58] LABS: Glucose,Whole Blood 116 mg/dL (75-99)
[2021-02-12] MEDS: carvediloL 12.5 MG TAB PO SCH (06:18)
[2021-02-12 06:26] LABS: Glucose,Whole Blood 122 mg/dL (75-99)
[2021-02-12 07:56] LABS: Basophils # (A) 0.1 k/uL (0-0.2); Basophils % (A) 1 %; Eosinophils # (A) 0.2 k/uL (0-0.7); Eosinophils % (A) 3 %; HCT 42.2 % (34.0-46.0); HGB 13.9 gm/dL (11.4-16.0); Lymphocytes # (A) 0.8 k/uL (1.0-4.8); Lymphocytes % (A) 17 %; MCH 29.3 pg (25.0-35.0); MCHC 32.8 g/dL (31.0-37.0); MCV 89.2 fL (80.0-100.0); Mean Platelet Volume 7.9; Monocytes # (A) 0.4 k/uL (0-1.0); Monocytes % (A) 9 %; Neutrophils # (A) 3.3 k/uL (1.3-7.7); Neutrophils % (A) 67 %; Platelet Count 182 k/uL (150-450); RBC 4.74 m/uL (3.80-5.40); RDW 13.5 % (11.5-15.5); WBC 4.8 k/uL (3.8-10.6)
[2021-02-12 08:06] LABS: ALT 19 U/L (4-34); AST 27 U/L (14-36); African American GFR (CKD) >90 (>60 ml/min/1.73 sqM); Albumin 3.6 g/dL (3.5-5.0); Alkaline Phosphatase 50 U/L (38-126); Anion Gap 4 mmol/L; Blood Urea Nitrogen 21 mg/dL (7-17); Calcium 9.4 mg/dL (8.4-10.2); Carbon Dioxide 35 mmol/L (22-30); Chloride 98 mmol/L (98-107); Glucose 119 mg/dL (74-99); Non-African American GFR(CKD) 82 (>60 ml/min/1.73 sqM); Potassium 3.3 mmol/L (3.5-5.1); Sodium 137 mmol/L (137-145); Total Bilirubin 1.1 mg/dL (0.2-1.3); Total Protein 6.5 g/dL (6.3-8.2)
--- NOTE | 2021-02-12 08:34 | P.DS ---
Providers Date of admission: 02/08/21 08:19 Expected date of discharge: 02/12/21 Attending physician: Tricia Luis DO Consults: 02/08/21 08:19 Consult Physician Urgent Consulting Provider: Tien Gauthier Consult Reason/Comments: Bilateral pleural effusions, dyspnea Do you want consulting provider notified?: Yes Consult Physician Urgent Consulting Provider: [facility] Consult Reason/Comments: A. fib with RVR Do you want consulting provider notified?: Yes Primary care physician: [facility] Hospital Course: HPI: Chief Complaint: Palpitations 75-year-old white female who reported to the hospital because of shortness of breath and palpitations. She denies chest pain. Symptoms started last night. She denies subjective fever or chills, no hematuria dysuria hematemesis or hematochezia. She has history of atrial fibrillation and states that she has had her cardiac workup performed at an outside facility recently. Patient's daughter is at bedside Hospital course and treatment: Patient was admitted to the hospital with shortness of breath. She was found to have paroxysmal atrial fibrillation with RVR and was started on Cardizem drip, she was continued on Coreg Cardizem and adequate's. She was evaluated by cardiology. A 2-D echo was performed was consistent with EF 30-35% with moderate to severe aortic stenosis. She was started on IV Bumex with improvement in her shortness of breath. She also was found to have pleural effusion, was evaluated by pulmonology, did not need a thoracentesis performed, she was continued to be diuresed and has significantly improved. She also started to have left lower lobe pneumonia with bilateral pleural effusions, was started on Rocephin and Zithromax. She remained afebrile with no leukocytoses. She feels much better, heart rate has been controlled. She is not requiring home oxygen. She will be discharged home to follow-up with PCP and cardiology as an outpatient. Diagnoses upon discharge: 1. Paroxysmal atrial fibrillation with RVR 2. Left lower lobe pneumonia with bilateral pleural effusion and congestion with 9 cm fluid pocket 3. Depression 4. Dementia unspecified type without behavioral changes 5. Essential hypertension 6. Diabetes type 2 with hyperglycemia 7. Acute on chronic systolic congestive heart failure ejection fraction 30-35% with moderate to severe aortic stenosis Patient Condition at Discharge: Stable Plan - Discharge Summary Discharge Rx Participant: Yes New Discharge Prescriptions: New Diltiazem Oral [Cardizem*] 30 mg PO BID 30 Days #60 tab Bumetanide [BUMEX] 0.5 mg PO BID 30 Days #60 tab Continue metFORMIN HCL [Glucophage] 500 mg PO BID@0800,1700 Memantine [Namenda] 10 mg PO BID Escitalopram Oxalate [Lexapro] 5 mg PO DAILY@1700 Carvedilol [Coreg] 12.5 mg PO BID Apixaban [Eliquis] 5 mg PO BID Donepezil [Aricept] 10 mg PO HS Discharge Medication List metFORMIN HCL [Glucophage] 500 mg PO BID@0800,1700 03/11/14 [History] Apixaban [Eliquis] 5 mg PO BID 02/08/21 [History] Carvedilol [Coreg] 12.5 mg PO BID 02/08/21 [History] Donepezil [Aricept] 10 mg PO HS 02/08/21 [History] Escitalopram Oxalate [Lexapro] 5 mg PO DAILY@1700 02/08/21 [History] Memantine [Namenda] 10 mg PO BID 02/08/21 [History] Bumetanide [BUMEX] 0.5 mg PO BID 30 Days #60 tab 02/12/21 [Rx] Diltiazem Oral [Cardizem*] 30 mg PO BID 30 Days #60 tab 02/12/21 [Rx] Follow up Appointment(s)/Referral(s): None,Stated [REFERRING] - 1-2 days Activity/Diet/Wound Care/Special Instructions: cardiology follow up 1 week Discharge Disposition: HOME SELF-CARE
[2021-02-12] MEDS ORDERED: BUMETANIDE 1 MG TAB PO SCH (09:00)
[2021-02-12] MEDS: APIXABAN 5 MG TAB PO SCH (09:09)
[2021-02-12] MEDS: ASPIRIN 81 MG PO SCH (09:09)
[2021-02-12] MEDS: DILTIAZEM ORAL 30 MG TAB PO SCH (09:09)
[2021-02-12] MEDS: AZITHROMYCIN 500 MG TAB PO SCH (09:10)
[2021-02-12] MEDS: MEMANTINE 10 MG TAB PO SCH (09:10)
[2021-02-12] MEDS ORDERED: POTASSIUM CHLORIDE ER 20 MEQ TAB.ER PO STA (09:57)
[2021-02-12 10:43] VITALS: BP 96/59; PULSE 89; TEMP 98.2
--- NOTE | 2021-02-12 11:15 | P.PN ---
Subjective This is a 75-year-old female patient with a history of atrial flutter (EKG in 2019), Type 2 diabetes mellitus, dementia, depression, coronary artery disease with previous CABG 3, valve repair anticoagulated with Eliquis, carotid stenosis with bilateral carotid endarterectomies, hypertnsion, dyslipidemai . Patient follows in the office with Dr. Le. Patient presents emergency department, shortness of breath and chest tightness. She went into atrial fibrillation with rapid ventricular response was started on a Cardizem drip. She is on Eliquis. Chest x-ray revealed small bilateral pleural effusions left greater than right. Patient is allergic to lasix and statins 02/09/21 Echocardiogram- EF 30-35%, inferior hypokinesis, mid septal hypokinesis, RV is mildly to moderately enlarged, LA is moderately dilated, trace amount of aortic regurgitation, moderate to severe aortic stenosis may be underestimated due to low flow low gradient. moderate MR, moderate mitral stenosis, moderate TR, moderate pulmonary hypertension 02/10/21: Patient seen and examined at bedside, no acute distress. Currently maintained on Cardizem PO 30mg BID, Eliquis 5mg BID, carvedilol 12.5 mg twice a day, aspi rin 81 mg daily. Blood pressure 95/67, heart rate 82, afebrile, maintaining oxygen saturation 99% on 3 L nasal cannula telemetry reviewed patient currently in atrial fibrillation ventricular rates controlled 70 to 80s. Repeat chest x-ray today with unchanged small right and small to moderate left pleural effusion. 02/11/2021: Patient seen at bedside, appears short of breath. Patient also complains of some lightheadedness, dizziness. Blood pressure 66/44, heart rate is 84, patient is alert and oriented 3. Patient is currently being maintained on Bumex 1 mg twice a day, Cardizem PO 30mg BID, Eliquis 5mg BID, carvedilol 12.5 mg twice a day, aspirin 81 mg daily. Patient continues to be in atrial fibrillation in the 70s to 80s. Associated with persistent left lower lobe opacity which may reflect a combination of effusion versus atelectasis 02/12/21: Patient seen at bedside. No acute distress. Blood pressure 96 with 59, heart rate 89, afebrile, maintaining oxygen saturation 90% on room air. Patient continues to be in nature fibrillation and her doctor rates are controlled. GENERAL: No acute distress NECK: Supple without JVD or thyromegaly. LUNGS: Breath sounds clear to auscultation bilaterally. Respiration equal and unlabored. No wheezes, rales or rhonchi. HEART: Irregular rate and rhythm systolic murmur heard at right sternal border, no rubs or gallops. S1 and S2 heard. EXTREMITIES: Normal range of motion, no edema. No clubbing or cyanosis. Peripheral pulses intact. ASSESSMENT: -Paroxysmal atrial fibrillation - on eliquis, -History of Hypertension- currently hypotensive -Type 2 Diabetes -CAD s/p previous CABG 10 years ago at [facility] -Dyslipidemia- patient could not previous tolerate statin -Peripheral Vascular Disease -Left sided pleural effusion- pulmonary following patient started on IV Bumex 1 mg twice a day, patient was restarted on her anticoagulation by pulmonary who do not intend to perform a thoracentesis. PLAN -From cardiology perspective, patient stable to be discharged. -Patient remains in atrial fibrillation, heart rate is controlled. -Recommend continuing Cardizem PO 30mg BID, coreg 12.5 mg twice a day and Eliquis 5mg BID -Patient to follow-up with Dr. Le within one week Objective - Vital Signs Vital signs: Vital Signs Temp 98.2 F 02/12/21 08:00 Pulse 89 02/12/21 08:00 Resp 16 02/12/21 08:00 BP 96/59 02/12/21 08:00 Pulse Ox 94 L 02/12/21 08:00 Intake & Output 02/11/21 02/12/21 02/12/21 18:59 06:59 18:59 Intake Total 1080 550 240 Output Total 500 750 Balance 580 -200 240 Weight 58.423 kg 58.1 kg Intake: Oral 1080 550 240 Output: Urine 500 750 Other: Voiding Method Toilet Toilet Toilet - Labs CBC & Chem 7: 02/12/21 06:54 02/12/21 06:54 Labs: Abnormal Lab Results - Last 24 Hours (Table) 02/11/21 02/11/21 02/12/21 Range/Units 11:36 19:55 06:21 Lymphocytes # (1.0-4.8) k/uL Potassium (3.5-5.1) mmol/L Carbon Dioxide (22-30) mmol/L BUN (7-17) mg/dL Glucose (74-99) mg/dL POC Glucose (mg/dL) 179 H 116 H 122 H (75-99) mg/dL 02/12/21 02/12/21 Range/Units 06:54 06:54 Lymphocytes # 0.8 L (1.0-4.8) k/uL Potassium 3.3 L (3.5-5.1) mmol/L Carbon Dioxide 35 H (22-30) mmol/L BUN 21 H (7-17) mg/dL Glucose 119 H (74-99) mg/dL POC Glucose (mg/dL) (75-99) mg/dL
== END 2021-02-12 10:47 | disposition home or self-care (01) | DRG 308 ==
LOC: EC 06:33 → SUPCPDRO 06:33 → EEVIPCON 06:33 → 3SCARD 08:19
PROVIDERS: ADMIT Internal Medicine; ATTEND Internal Medicine
DX: I48.0 Paroxysmal atrial fibrillation (principal); I50.23 Acute on chronic systolic (congestive) heart failure; J18.9 Pneumonia, unspecified organism; J96.01 Acute respiratory failure with hypoxia; Z20.822 Contact with and (suspected) exposure to COVID-19; E11.51 Type 2 diabetes mellitus with diabetic peripheral angiopathy without gangrene; E11.65 Type 2 diabetes mellitus with hyperglycemia; E78.5 Hyperlipidemia, unspecified; F03.90 Unspecified dementia, unspecified severity, without behavioral disturbance, psychotic disturbance, mood disturbance, and anxiety; F32.9 Major depressive disorder, single episode, unspecified; I08.0 Rheumatic disorders of both mitral and aortic valves; I11.0 Hypertensive heart disease with heart failure; I25.10 Atherosclerotic heart disease of native coronary artery without angina pectoris; I25.2 Old myocardial infarction; I27.20 Pulmonary hypertension, unspecified; Z79.01 Long term (current) use of anticoagulants; Z79.82 Long term (current) use of aspirin; Z79.84 Long term (current) use of oral hypoglycemic drugs; Z79.899 Other long term (current) drug therapy; Z87.891 Personal history of nicotine dependence; Z95.1 Presence of aortocoronary bypass graft; Z98.890 Other specified postprocedural states; Z98.42 Cataract extraction status, left eye; Z98.41 Cataract extraction status, right eye; Z98.51 Tubal ligation status; Z86.010 Personal history of colon polyps; Z87.11 Personal history of peptic ulcer disease; Z88.5 Allergy status to narcotic agent; Z88.7 Allergy status to serum and vaccine; Z88.8 Allergy status to other drugs, medicaments and biological substances
CPT/HCPCS: 36415; 70490; 71045; 71046; 76604; 80053; 80061; 81001; 83735; 84145; 84484; 85025; 85610; 85730; 87636; 93005; 93306; 94760; 96374; 99291

== ENCOUNTER 2021-06-08 07:34 | Emergency (ER) | payer MEDICARE ==
[2021-06-08] MEDS ORDERED: IPRATROPIUM-ALBUTEROL 3 ML NEB INHALATION STA (07:51)
[2021-06-08 07:52] VITALS: RESP 18; TEMP 98
[2021-06-08 08:11] LABS: Basophils # (A) 0.1 k/uL (0-0.2); Basophils % (A) 1 %; Eosinophils # (A) 0.2 k/uL (0-0.7); Eosinophils % (A) 3 %; HCT 37.6 % (34.0-46.0); HGB 12.1 gm/dL (11.4-16.0); Hypochromasia Moderate; Lymphocytes # (A) 0.8 k/uL (1.0-4.8); Lymphocytes % (A) 13 %; MCH 31.9 pg (25.0-35.0); MCV 99.6 fL (80.0-100.0); Mean Platelet Volume 8.3; Monocytes # (A) 0.5 k/uL (0-1.0); Monocytes % (A) 8 %; Neutrophils # (A) 4.3 k/uL (1.3-7.7); Neutrophils % (A) 73 %; Platelet Count 200 k/uL (150-450); RBC 3.78 m/uL (3.80-5.40); RDW 13.8 % (11.5-15.5); WBC 5.8 k/uL (3.8-10.6)
--- NOTE | 2021-06-08 08:17 | ED ---
Chest Pain HPI - General Stated Complaint: SOB Time Seen by Provider: 06/08/21 07:34 Source: patient, RN notes reviewed Mode of arrival: EMS Limitations: no limitations - History of Present Illness Initial Comments: This is a 76-year-old female history dementia history of A. fib history of pleural effusion hypertension and heart disease who presents by EMS with complaints of chest pain and some shortness of breath. He states it started about 4:00 this morning. Patient is a poor historian. No reports of fevers chills nausea vomiting sweats no cough MD Complaint: chest pain, other - Related Data Home Medications Medication Instructions Recorded Confirmed Apixaban [Eliquis] 5 mg PO BID@0800,199902/08/21 06/08/21 Donepezil [Aricept] 10 mg PO HS@199902/08/21 06/08/21 Escitalopram Oxalate [Lexapro] 5 mg PO DAILY@0802/08/21 06/08/21 Memantine [Namenda] 10 mg PO BID@08,199902/08/21 06/08/21 Amiodarone [Cordarone] 200 mg PO DAILY@0800 06/08/21 06/08/21 Amoxicillin 2,000 mg PO ONCE PRN 06/08/21 06/08/21 Bumetanide 0.5 mg PO DAILY@0800 06/08/21 06/08/21 carvediloL [Coreg] 6.25 mg PO BID@0800,1700 06/08/21 06/08/21 sitaGLIPtin PHOSPHATE [Januvia] 50 mg PO DAILY@0800 06/08/21 06/08/21 Previous Rx's Medication Instructions Recorded Ipratropium/Albuterol Sulfate 2 puff INHALATION QID PRN #1 each 06/08/21 [Combivent Respimat Inhaler] Allergies Allergy/AdvReac Type Severity Reaction Status Date / Time furosemide Allergy Unknown Unknown Verified 06/08/21 08:06 hydrocodone bitartrate Allergy Unknown Hallucinati Verified 06/08/21 08:06 [From Vicodin] ons pravastatin Allergy Unknown Itching, Verified 06/08/21 08:06 face swelling simvastatin Allergy Unknown Itching, Verified 06/08/21 08:06 face swelling Influenza Virus Vaccines Allergy Unknown Verified 06/08/21 08:06 rosuvastatin calcium Allergy fainting Verified 06/08/21 08:06 [From Crestor] Etbfiub-Yaw-Ofd Reductase Allergy itching, Verified 06/08/21 08:06 Inhibitor face swelling flu vaccine Allergy Unknown Uncoded 06/08/21 07:52 Review of Systems ROS Statement: Those systems with pertinent positive or pertinent negative responses have been documented in the HPI. ROS Other: All systems not noted in ROS Statement are negative. EKG Findings - EKG Results: EKG: interpreted by MOLINA (Atrial fibrillation rate 92 QRS 124 QT since QTC 394/487 evidence of anterior infarct and nonspecific ST configuration) Past Medical History Past Medical History: Coronary Artery Disease (CAD), Heart Failure, Dementia, Diabetes Mellitus, Hyperlipidemia, Hypertension, Myocardial Infarction ([place]) Additional Past Medical History / Comment(s): hx ulcers, hx polyps, silent [place], heart valve issues aortic valve is the worse, bilateral lung pluarcy Last Myocardial Infarction Date:: 2009 History of Any Multi-Drug Resistant Organisms: None Reported Past Surgical History: Coronary Bypass/CABG, Heart Catheterization, Tubal Ligation Additional Past Surgical History / Comment(s): triple bypass, carlene carotid endarterectomy with mesh, valve repair, states no stents in heart, loop recorder removed in 2018, carlene cataracts Past Anesthesia/Blood Transfusion Reactions: No Reported Reaction Date of Last Stent Placement:: 2009 Type of Cardiac Device: Loop Device Placement Date:: 01/22 Past Psychological History: No Psychological Hx Reported Smoking Status: Former smoker - Past Family History Mother Family Medical History: Cancer Additional Family Medical History / Comment(s): BREAST General Exam - General Exam Comments Initial Comments: This is a well-developed awake female Limitations: no limitations General appearance: alert, in no apparent distress Head exam: Present: atraumatic, normocephalic, normal inspection Eye exam: Present: normal appearance, PERRL, EOMI. Absent: scleral icterus, conjunctival injection, periorbital swelling ENT exam: Present: normal exam, mucous membranes moist Neck exam: Present: normal inspection, full ROM, other (No stridor JVD or bruits). Absent: tenderness, meningismus, lymphadenopathy Respiratory exam: Present: wheezes (Wheezes to the left upper lobe), decreased breath sounds. Absent: respiratory distress, rales, rhonchi, stridor Cardiovascular Exam: Present: tachycardia, irregular rhythm. Absent: systolic murmur, diastolic murmur, rubs, gallop, clicks GI/Abdominal exam: Present: soft, normal bowel sounds. Absent: distended, tenderness, guarding, rebound, rigid Extremities exam: Present: normal inspection, full ROM, normal capillary refill. Absent: tenderness, pedal edema, joint swelling, calf tenderness Back exam: Present: normal inspection Neurological exam: Present: alert, oriented X3, CN II-XII intact Psychiatric exam: Present: normal affect, normal mood Skin exam: Present: warm, dry, intact, normal color. Absent: rash Course Vital Signs 06/08/21 06/08/21 06/08/21 07:42 08:08 08:19 Temperature 98.0 F Pulse Rate 102 H 115 H 104 H Respiratory 18 Rate Blood Pressure 103/64 O2 Sat by Pulse 92 L Oximetry 06/08/21 06/08/21 06/08/21 09:04 09:05 09:41 Temperature Pulse Rate 96 108 H Respiratory 18 18 Rate Blood Pressure 86/44 150/100 95/72 O2 Sat by Pulse 95 96 Oximetry Chest Pain MDM - MDM Imaging reviewed evidence of bilateral pleural effusions and evidence of congestive failure after extensive discussion with the patient family members the family patient would like to not be admitted and outpatient evaluation of pleural effusion. Currently all patient slots are unavailable a wooden step like to be discharged he will likely current diuretic and increase the amount and follow-up with her doctor and return if any problems. This is reasonable at this time. The patient's planning to enter hospice. No other complaints or modifying issues at this time the patient did get improvement after the nebulizer treatment. Disposition Clinical Impression: CHF (congestive heart failure), Pleural effusion, Bronchospasm, acute Disposition: HOME SELF-CARE Condition: Stable Instructions (If sedation given, give patient instructions): Heart Failure (ER), Pleural Effusion (ED), Bronchospasm (ED) Prescriptions: Ipratropium/Albuterol Sulfate [Combivent Respimat Inhaler] 2 puff INHALATION QID PRN #1 each PRN Reason: Dyspnea Is patient prescribed a controlled substance at d/c from ED?: No Referrals: Jay Bonilla MD [Primary Care Provider] - 1-2 days
[2021-06-08 08:24] LABS: Partial Thromboplastin Time 25.7 sec (22.0-30.0); Prothrombin Time 10.9 sec (9.0-12.0)
[2021-06-08 08:44] LABS: Albumin 3.8 g/dL (3.5-5.0); Calcium 9.2 mg/dL (8.4-10.2); Magnesium 1.9 mg/dL (1.6-2.3); Total Bilirubin 0.4 mg/dL (0.2-1.3); Total Protein 6.8 g/dL (6.3-8.2)
--- NOTE | 2021-06-08 09:26 | XR ---
EXAMINATION TYPE: XR chest 2V DATE OF EXAM: 06/08/2021 COMPARISON: 02/11/2021 HISTORY: Shortness of breath TECHNIQUE: Frontal and lateral views of the chest are obtained. FINDINGS: Scattered senescent parenchymal changes noted. Hyperinflation compatible with COPD. Left lower lobe atelectasis and/or infiltrate with pleural effusion. Overall appearance is stable. Heart size is stable. Mediastinal structures are stable and grossly unremarkable. No evidence for hilar prominence. Degenerative changes dorsal spine. IMPRESSION: 1. Left lower lobe atelectasis and/or infiltrate with pleural effusion. Overall appearance is stable.
--- NOTE | 2021-06-08 09:39 | CT ---
EXAMINATION TYPE: CT angio chest DATE OF EXAM: 06/08/2021 9:29 AM COMPARISON: Chest CT May 19, 2020 HISTORY: Chest pressure with shortness of breath CT DLP: 324.8 mGycm Automated exposure control for dose reduction was used. CONTRAST: CTA scan of the thorax is performed with IV Contrast, patient injected with 80 mL of Isovue 370, pulm onary embolism protocol. MIP images are created and reviewed. FINDINGS: LUNGS: Small to moderate-sized left pleural effusion is slightly larger versus prior CT. Small right pleural effusion increased in size from prior CT. Mosaic attenuation consistent with mild alveolar ed cipriano noted bilaterally. Compressive atelectasis in both lower lungs. Background mild underlying emphys ematous change is present in the upper lungs. MEDIASTINUM: There is satisfactory enhancement of the pulmonary artery and its branches, there is no CT evidence for pulmonary embolism. Overlying sternal wires and mediastinal clips redemonstrated. Kun cification at level of mitral and aortic valve noted. Cardiomegaly with tiny pericardial effusion. Mo derate to severe calcified plaque of the aorta extends into branch vessels OTHER: Persistent 2.0 cm thin-walled cyst medially upper pole of the left kidney. Osseous structures are demineralized. Underlying S-shaped scoliosis. Large hemangioma involving T4 vertebra again seen. IMPRESSION: No CT evidence for acute pulmonary embolism. Suspect CHF exacerbation as there is cardiom egaly with small to moderate size left greater than right pleural effusions and mild bilateral alveol ar edema. Correlate clinically. Background mild underlying emphysematous and post-CABG changes noted.
[2021-06-08 13:31] VITALS: BP 98/70; PULSE 102
== END 2021-06-08 13:31 | disposition home or self-care (01) ==
LOC: EC 07:34
DX: I11.0 Hypertensive heart disease with heart failure (principal); I50.9 Heart failure, unspecified; J90 Pleural effusion, not elsewhere classified; J98.01 Acute bronchospasm; E11.9 Type 2 diabetes mellitus without complications; E78.5 Hyperlipidemia, unspecified; I25.10 Atherosclerotic heart disease of native coronary artery without angina pectoris; I25.2 Old myocardial infarction; I48.91 Unspecified atrial fibrillation; F03.90 Unspecified dementia, unspecified severity, without behavioral disturbance, psychotic disturbance, mood disturbance, and anxiety; Z95.1 Presence of aortocoronary bypass graft; Z87.891 Personal history of nicotine dependence; Z79.01 Long term (current) use of anticoagulants; Z79.84 Long term (current) use of oral hypoglycemic drugs; Z79.899 Other long term (current) drug therapy; Z88.5 Allergy status to narcotic agent; Z88.8 Allergy status to other drugs, medicaments and biological substances
CPT/HCPCS: 36415; 94640; 93005; 85379; 83880; 80053; 82550; 83690; 83735; 84484; 85025; 85610; 85730; 71046; 71275; 99285; Q9967

== ENCOUNTER 2021-10-27 14:31 | Inpatient (IN) | payer MEDICARE ==
--- NOTE | 2021-10-27 15:19 | ED ---
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 Luo for hypotension with syncope and irregular heartbeat. Patient is a poor historian. Patient reports that she fell yesterday at her assisted living home. She cannot recall if there was LOC before/after the fall or head trauma. Patient reports right-sided back pain since the fall. She denies chest pain, shortness of breath, fatigue, weakness, abdominal pain, dysuria, and known COVID-19 exposure. Patient reports that the assisted living home made her come to the emergency department. The nurse spoke with her daughters who reported that the patient has experienced syncopal episodes intermittently for couple years. Patient's daughters reported that patient has been experiencing hypotension with blood pressure ~ 90/50 yesterday before LOC and consequential f all, as well as irregular heart rate for the past couple weeks. Patient's daughters state that Dr. Luo sent patient to emergency department for evaluation for potential pacemaker insertion. - Related Data Home Medications Medication Instructions Recorded Confirmed Apixaban [Eliquis] 5 mg PO BID@08,199902/08/21 06/08/21 Donepezil [Aricept] 10 mg PO HS@199902/08/21 06/08/21 Memantine [Namenda] 10 mg PO BID@02/08/21 06/08/21 Amiodarone [Cordarone] 200 mg PO DAILY@79906/08/21 06/08/21 Amoxicillin 2,000 mg PO ONCE PRN 06/08/21 06/08/21 sitaGLIPtin PHOSPHATE [Januvia] 50 mg PO DAILY@79906/08/21 06/08/21 Acetaminophen Tab [Tylenol Tab] 1,000 mg PO Q8H PRN 10/27/21 10/27/21 Acetaminophen [Tylenol] 500 mg PO BID PRN 10/27/21 10/27/21 Albuterol Inhaler [Ventolin Hfa 2 puff INHALATION RT-QID PRN 10/27/21 10/27/21 Inhaler] Bacitracin Zinc Oint 1 applic TOPICAL DAILY@0800 10/27/21 10/27/21 Bumetanide [Bumex] 1 mg PO BID-W/MEALS 10/27/21 10/27/21 Carvedilol [Coreg] 12.5 mg PO BID@0800,1700 PRN 10/27/21 10/27/21 Docusate [Colace] 100 mg PO BID PRN 10/27/21 10/27/21 Escitalopram Oxalate [Lexapro] 10 mg PO DAILY@0800 10/27/21 10/27/21 Levothyroxine Sodium [Synthroid] 25 mcg PO DAILY@0700 10/27/21 10/27/21 Lisinopril [Prinivil] 10 mg PO DAILY@0800 10/27/21 10/27/21 Meloxicam [Mobic] 7.5 mg PO DAILY PRN 10/27/21 10/27/21 Metoprolol Succinate [Toprol XL] 25 mg PO BID@0800,2000 10/27/21 10/27/21 Venlafaxine HCl [Effexor XR] 75 mg PO DAILY@0800 10/27/21 10/27/21 polyethylene glycoL 3350 [Miralax] 17 gm PO DAILY PRN 10/27/21 10/27/21 Allergies Allergy/AdvReac Type Severity Reaction Status Date / Time furosemide Allergy Unknown Unknown Verified 10/27/21 17:12 hydrocodone bitartrate Allergy Unknown Hallucinati Verified 10/27/21 17:12 [From Vicodin] ons pravastatin Allergy Unknown Itching, Verified 10/27/21 17:12 face swelling simvastatin Allergy Unknown Itching, Verified 10/27/21 17:12 face swelling Influenza Virus Vaccines Allergy Unknown Verified 10/27/21 17:12 rosuvastatin calcium Allergy fainting Verified 10/27/21 17:12 [From Crestor] Ddkhgho-PMS-CuM Reductase Allergy itching, Verified 10/27/21 17:12 Inhibitor face [Pzaqbch-Gaj-Ksc Reductase swelling Inhibitor] flu vaccine Allergy Unknown Uncoded 10/27/21 14:39 Review of Systems ROS Statement: Those systems with pertinent positive or pertinent negative responses have been documented in the HPI. ROS Other: All systems not noted in ROS Statement are negative. Past Medical History Past Medical History: Coronary Artery Disease (CAD), Heart Failure, Dementia, Diabetes Mellitus, Hyperlipidemia, Hypertension, Myocardial Infarction ([place]) Additional Past Medical History / Comment(s): hx ulcers, hx polyps, silent [place], heart valve issues aortic valve is the worse, bilateral lung pluarcy Last Myocardial Infarction Date:: 2009 History of Any Multi-Drug Resistant Organisms: None Reported Past Surgical History: Coronary Bypass/CABG, Heart Catheterization, Tubal Ligation Additional Past Surgical History / Comment(s): triple bypass, carlene carotid endarterectomy with mesh, valve repair, states no stents in heart, loop recorder removed in 2018, carlene cataracts Past Anesthesia/Blood Transfusion Reactions: No Reported Reaction Date of Last Stent Placement:: 2009 Type of Cardiac Device: Loop Device Placement Date:: 01/22 Past Psychological History: No Psychological Hx Reported Smoking Status: Former smoker - Past Family History Mother Family Medical History: Cancer Additional Family Medical History / Comment(s): BREAST General Exam Limitations: altered mental status (dementia) General appearance: alert, in no apparent distress Head exam: Present: atraumatic, normocephalic, normal inspection Eye exam: Present: normal appearance, PERRL, EOMI. Absent: scleral icterus, conjunctival injection, periorbital swelling Neck exam: Present: normal inspection. Absent: tenderness, meningismus, lymphadenopathy Respiratory exam: Present: normal lung sounds bilaterally. Absent: respiratory distress, wheezes, rales, rhonchi, stridor Cardiovascular Exam: Present: regular rate, irregular rhythm. Absent: normal rhythm, normal heart sounds GI/Abdominal exam: Present: soft, normal bowel sounds. Absent: distended, tenderness, guarding, rebound, rigid Back exam: Present: normal inspection, full ROM, rash noted (ecchymosis of the right flank, patients states likely due to fall). Absent: tenderness, muscle spasm, paraspinal tenderness, vertebral tenderness Neurological exam: Present: alert, oriented X3 Psychiatric exam: Present: normal affect, normal mood Skin exam: Present: warm, dry, intact Course Vital Signs 10/27/21 10/27/21 14:33 15:44 Temperature 97.4 F L Pulse Rate 79 82 Respiratory 18 18 Rate Blood Pressure 103/59 O2 Sat by Pulse 96 95 Oximetry EKG Findings - EKG Comments: EKG Findings:: Atrial fibrillation with premature ventricular or aberrantly conducted complexes, nonspecific intraventricular block, T wave abnormality, consider inferolateral ischemia. 86 bpm. MT unknown. QRS 134 ms. QT/QTc 424/507 Medical Decision Making - Medical Decision Making This is a 76-year-old female who presents with hypotension with syncope and irregular heartbeat. Patient was instructed by Dr. Luo to report to the emergency department for cardiac evaluation with potential pacemaker insertion. EKG revealed atrial fibrillation with premature ventricular or aberrantly conducted complexes, nonspecific intraventricular block, T-wave abnormality. Chest x-ray revealed right-sided rib fractures that appear acute, correlate for trauma. It also revealed infiltrate at the right base, nonspecific, correlate for pulmonary contusion and consider atelectasis/pneumonia. Chest x-ray also revealed a small pleural effusion. Spoke with Dr. Gonzales who recommended admit to with cardiology and trauma consult. - Lab Data Result diagrams: 10/27/21 15:19 10/27/21 15:19 Lab Results 10/27/21 10/27/21 10/27/21 Range/Units 15:19 15:19 15:19 WBC 6.8 (3.8-10.6) k/uL RBC 4.15 (3.80-5.40) m/uL Hgb 12.0 (11.4-16.0) gm/dL Hct 37.8 (34.0-46.0) % MCV 91.0 (80.0-100.0) fL MCH 28.9 (25.0-35.0) pg MCHC 31.8 (31.0-37.0) g/dL RDW 13.8 (11.5-15.5) % Plt Count 249 (150-450) k/uL MPV 8.2 Neutrophils % 70 % Lymphocytes % 15 % Monocytes % 8 % Eosinophils % 4 % Basophils % 1 % Neutrophils # 4.8 (1.3-7.7) k/uL Lymphocytes # 1.0 (1.0-4.8) k/uL Monocytes # 0.6 (0-1.0) k/uL Eosinophils # 0.3 (0-0.7) k/uL Basophils # 0.1 (0-0.2) k/uL PT 12.7 H (9.0-12.0) sec INR 1.2 H (<1.2) APTT 27.8 (22.0-30.0) sec Sodium 140 (137-145) mmol/L Potassium 2.6 L* (3.5-5.1) mmol/L Chloride 100 (98-107) mmol/L Carbon Dioxide 33 H (22-30) mmol/L Anion Gap 7 mmol/L BUN 30 H (7-17) mg/dL Creatinine 1.45 H (0.52-1.04) mg/dL Est GFR (CKD-EPI)AfAm 40 (>60 ml/min/1.73 sqM) Est GFR (CKD-EPI)NonAf 35 (>60 ml/min/1.73 sqM) Glucose 90 (74-99) mg/dL Calcium 8.7 (8.4-10.2) mg/dL Magnesium 1.6 (1.6-2.3) mg/dL Total Bilirubin 0.9 (0.2-1.3) mg/dL AST 30 (14-36) U/L ALT 34 (4-34) U/L Alkaline Phosphatase 277 H (38-126) U/L Troponin I (0.000-0.034) ng/mL NT-Pro-B Natriuret Pep pg/mL Total Protein 6.8 (6.3-8.2) g/dL Albumin 3.4 L (3.5-5.0) g/dL Coronavirus (PCR) (Not Detectd) 10/27/21 10/27/21 10/27/21 Range/Units 15:19 15:19 15:44 WBC (3.8-10.6) k/uL RBC (3.80-5.40) m/uL Hgb (11.4-16.0) gm/dL Hct (34.0-46.0) % MCV (80.0-100.0) fL MCH (25.0-35.0) pg MCHC (31.0-37.0) g/dL RDW (11.5-15.5) % Plt Count (150-450) k/uL MPV Neutrophils % % Lymphocytes % % Monocytes % % Eosinophils % % Basophils % % Neutrophils # (1.3-7.7) k/uL Lymphocytes # (1.0-4.8) k/uL Monocytes # (0-1.0) k/uL Eosinophils # (0-0.7) k/uL Basophils # (0-0.2) k/uL PT (9.0-12.0) sec INR (<1.2) APTT (22.0-30.0) sec Sodium (137-145) mmol/L Potassium (3.5-5.1) mmol/L Chloride (98-107) mmol/L Carbon Dioxide (22-30) mmol/L Anion Gap mmol/L BUN (7-17) mg/dL Creatinine (0.52-1.04) mg/dL Est GFR (CKD-EPI)AfAm (>60 ml/min/1.73 sqM) Est GFR (CKD-EPI)NonAf (>60 ml/min/1.73 sqM) Glucose (74-99) mg/dL Calcium (8.4-10.2) mg/dL Magnesium (1.6-2.3) mg/dL Total Bilirubin (0.2-1.3) mg/dL AST (14-36) U/L ALT (4-34) U/L Alkaline Phosphatase (38-126) U/L Troponin I 0.017 (0.000-0.034) ng/mL NT-Pro-B Natriuret Pep 4730 pg/mL Total Protein (6.3-8.2) g/dL Albumin (3.5-5.0) g/dL Coronavirus (PCR) Not Detected (Not Detectd) Disposition Clinical Impression: Syncope and collapse, Atrial fibrillation, Hypokalemia, Acute hypokalemia, Ribs, multiple fractures Disposition: ADMITTED IP TO THIS HOSP Condition: Fair Referrals: Jay Bonilla MD [Primary Care Provider] - 1-2 days Time of Disposition: 17:09
[2021-10-27 15:35] LABS: Basophils # (A) 0.1 k/uL (0-0.2); Basophils % (A) 1 %; Eosinophils # (A) 0.3 k/uL (0-0.7); Eosinophils % (A) 4 %; HCT 37.8 % (34.0-46.0); Lymphocytes % (A) 15 %; MCH 28.9 pg (25.0-35.0); MCHC 31.8 g/dL (31.0-37.0); Mean Platelet Volume 8.2; Monocytes # (A) 0.6 k/uL (0-1.0); Monocytes % (A) 8 %; Neutrophils # (A) 4.8 k/uL (1.3-7.7); Neutrophils % (A) 70 %; Platelet Count 249 k/uL (150-450); RBC 4.15 m/uL (3.80-5.40); RDW 13.8 % (11.5-15.5); WBC 6.8 k/uL (3.8-10.6)
[2021-10-27 15:45] LABS: INR 1.2 (<1.2); Partial Thromboplastin Time 27.8 sec (22.0-30.0); Prothrombin Time 12.7 sec (9.0-12.0)
[2021-10-27 15:53] LABS: Albumin 3.4 g/dL (3.5-5.0); Calcium 8.7 mg/dL (8.4-10.2); Magnesium 1.6 mg/dL (1.6-2.3); Total Bilirubin 0.9 mg/dL (0.2-1.3); Total Protein 6.8 g/dL (6.3-8.2)
[2021-10-27 16:05] LABS: Potassium 2.6 mmol/L (3.5-5.1)
--- NOTE | 2021-10-27 16:17 | XR ---
EXAMINATION TYPE: XR chest 2V DATE OF EXAM: 10/27/2021 COMPARISON: 06/08/2021 INDICATION: Syncope TECHNIQUE: Frontal and lateral views of the chest are obtained. FINDINGS: The heart size is normal. The pulmonary vasculature is normal. The lungs are clear. Sternotomy wires are present from a CABG. Right-sided rib fractures are no pneumothorax is present. Fractures of the posterior-lateral eighth a nd ninth ribs are present. A minimal left pleural effusion is present, diminished from previous study . IMPRESSION: 1. Right-sided rib fractures appear acute. Correlate for trauma. 2. Infiltrate at the right base is nonspecific. Correlate for pulmonary contusion. Atelectasis and pn eumonia could be considered. 3. Small left pleural effusion.
[2021-10-27] MEDS ORDERED: POTASSIUM CHLORIDE ER 20 MEQ TAB.ER PO STA (16:19)
[2021-10-27] MEDS: POTASSIUM CHLORIDE 20 MEQ in WATER FOR INJECTION 1 100ML.BAG IVPB SCH ×2 (17:02→18:58)
[2021-10-27] MEDS ORDERED: SODIUM CHLORIDE 0.9% 500 ML 500 ML IV STA (17:13)
[2021-10-27] MEDS ORDERED: NALOXONE 0.4 MG/ML 1 ML VIAL IV PRN (17:14)
[2021-10-27] MEDS ORDERED: ONDANSETRON 4 MG/2 ML VIAL IVP PRN (17:31)
[2021-10-27] MEDS ORDERED: MORPHINE SULFATE 2 MG/ML SYRINGE IV PRN (17:31)
[2021-10-27] MEDS ORDERED: ACETAMINOPHEN TAB 325 MG TAB PO PRN (17:46)
[2021-10-27] MEDS ORDERED: ALBUTEROL NEBULIZED 2.5 MG/3 ML INHALATION PRN (22:37)
[2021-10-27] MEDS ORDERED: CALCIUM CARBONATE 500 MG CHEWABLE PO PRN (22:41)
[2021-10-27] MEDS ORDERED: LORazepam 0.5 MG TAB PO PRN (22:41)
--- NOTE | 2021-10-27 22:44 | P.HPIM ---
History of Present Illness H&P Date: 10/27/21 Chief Complaint: Low heart rate This is a 76-year-old patient who follows with visiting physicians Dr. Bonilla. Chronic stable medical conditions include CAD with history of bypass, CHF, dementia, diabetes, hypertension, hyperlipidemia. Patient is at [facility] home. Patient was sent in by her celery packer Dr. Luo after the patient was found to have a low blood pressure and low heart rate. Patient had a syncopal episode yesterday that resulted to the celery packer visit. Patient denied any dizziness or lightheadedness. It may be noted because of dementia patient is a poor historian. Blood pressure at the [facility] home was 88/53. Patient really cannot give much of history except for simple questions. Denies any shortness of breath or cough no fever no chills. Appetite is good. Review of systems: GEN.: None EYES: None HEENT: None NECK: None RESPIRATORY: None CARDIOVASCULAR: None GASTROINTESTINAL: None GENITOURINARY: None MUSCULOSKELETAL: None LYMPHATICS: None HEMATOLOGICAL: None PSYCHIATRY: Forgetful NEUROLOGICAL: None Past medical history to include: CAD with bypass, CHF, dementia, diabetes, hypertension, hyperlipidemia, ulcers, Social history: Lives at [facility]. Patient smoked for about 50 years stopped in 2009. No alcohol reported. Family history: Breast cancer Physical examination: VITAL SIGNS: 97.4, 79, 18, 73/53, 98% on room air GENERAL: BMI 21.6, sitting up, awake, comfortable. EYES: Pupils equal. Conjunctiva normal. HEENT: External appearance of nose and ears normal, oral cavity grossly normal. NECK: JVD not raised; masses not palpable. HEART: First and second heart sounds are normal; no edema. LUNGS: Respiratory rate normal; decreased breath sounds. ABDOMEN: Soft, nontender, liver spleen not palpable, no masses palpable. PSYCH: Patient does not know where she is. She thinks his 1944. Does not know why she is here.l. MUSCULOSKELETAL:No Clubbing/cyanosis;muscles-grossly intact. Evidence of OA NEUROLOGICAL: Cranial nerves grossly intact; no facial asymmetry, power and sensation grossly intact. LYMPHATICS: No lymph nodes palpable in the axilla and neck INVESTIGATIONS, reviewed in the clinical context: White count 6.8 hemoglobin 12 platelets 249 sodium 140 potassium 2.6 BUN 30 creatinine 1.45 Troponin I 0.017 Coronavirus [PCR]: Not detected EKG tracing personally reviewed by me-atrial fibrillation. ST segment depression in leads V4 to V6 possibly one aVF. Chest x-ray film personally reviewed by [email or web address]-[id number]-ilkyk rib fractures. Possible atelectasis. Previous labs: Creatinine 0.72 on February 2021 Assessment and plan: -Patient is found to be hypotensive and bradycardic outpatient. Currently the heart rate is up. Telemetry. -Bradycardia reported. Note patient's both on Toprol-XL and Coreg. Currently hold both. -Persistent atrial fibrillation. Rate controlled. Telemetry. -Acute kidney injury the patient's creatinine being 0.72, February 2021. Note patient is on Bumex. Hold. Also hold Prinivil. Hold Mobic -Hypotension, possibly from kidney injury IV fluids -Major cognitive impairment from late onset Alzheimer's dementia -Essential hypertension Patient on Coreg. Currently held because of low blood pressure. Note patient also was on Toprol-XL., Prinivil.-Hold -Chronic congestive heart failure from systolic dysfunction EF 30-35% Follow clinically -Diabetes mellitus type 2, oral hypoglycemic Follow Accu-Cheks. Januvia 50 mg a day Hold patient's Toprol-XL, Prinivil, Coreg. We'll start Lopressor 12.5 by mouth twice a day in the morning. IV fluids 75 mL an hour. 2-D echocardiogram. Resume home medications. Accu-Cheks. Resume eliquis. Past Medical History Past Medical History: Coronary Artery Disease (CAD), Heart Failure, Dementia, Diabetes Mellitus, Hyperlipidemia, Hypertension, Myocardial Infarction ([place]) Additional Past Medical History / Comment(s): hx ulcers, hx polyps, silent [place], heart valve issues aortic valve is the worse, bilateral lung pluarcy Last Myocardial Infarction Date:: 2009 History of Any Multi-Drug Resistant Organisms: None Reported Past Surgical History: Coronary Bypass/CABG, Heart Catheterization, Tubal Liga tion Additional Past Surgical History / Comment(s): triple bypass, carlene carotid endarterectomy with mesh, valve repair, states no stents in heart, loop recorder removed in 2018, carlene cataracts Past Anesthesia/Blood Transfusion Reactions: No Reported Reaction Date of Last Stent Placement:: 2009 Type of Cardiac Device: Loop Device Placement Date:: 01/22 Past Psychological History: No Psychological Hx Reported Smoking Status: Unknown if ever smoked Past Alcohol Use History: None Reported Additional Past Alcohol Use History / Comment(s): quit smoking in 2009 smoked from teens Past Drug Use History: None Reported - Past Family History Mother Family Medical History: Cancer Additional Family Medical History / Comment(s): BREAST Medications and Allergies Home Medications Medication Instructions Recorded Confirmed Type Apixaban [Eliquis] 5 mg PO BID@08,199902/08/21 10/27/21 History Donepezil [Aricept] 10 mg PO HS@199902/08/21 10/27/21 History Memantine [Namenda] 10 mg PO BID@08,199902/08/21 10/27/21 History Amiodarone [Cordarone] 200 mg PO DAILY@79906/08/21 10/27/21 History Amoxicillin 2,000 mg PO ONCE PRN 06/08/21 10/27/21 History sitaGLIPtin PHOSPHATE [Januvia] 50 mg PO DAILY@0806/08/21 10/27/21 History Acetaminophen Tab [Tylenol Tab] 1,000 mg PO Q8H PRN 10/27/21 10/27/21 History Acetaminophen [Tylenol] 500 mg PO BID PRN 10/27/21 10/27/21 History Albuterol Inhaler [Ventolin Hfa 2 puff INHALATION RT-QID PRN 10/27/21 10/27/21 History Inhaler] Bacitracin Zinc Oint 1 applic TOPICAL DAILY@79910/27/21 10/27/21 History Bumetanide [Bumex] 1 mg PO BID-W/MEALS 10/27/21 10/27/21 History Carvedilol [Coreg] 12.5 mg PO BID@0800,1700 PRN 10/27/21 10/27/21 History Docusate [Colace] 100 mg PO BID PRN 10/27/21 10/27/21 History Escitalopram Oxalate [Lexapro] 10 mg PO DAILY@0800 10/27/21 10/27/21 History Levothyroxine Sodium [Synthroid] 25 mcg PO DAILY@0700 10/27/21 10/27/21 History Lisinopril [Prinivil] 10 mg PO DAILY@0800 10/27/21 10/27/21 History Meloxicam [Mobic] 7.5 mg PO DAILY PRN 10/27/21 10/27/21 History Metoprolol Succinate [Toprol XL] 25 mg PO BID@0800,199910/27/21 10/27/21 History Venlafaxine HCl [Effexor XR] 75 mg PO DAILY@0800 10/27/21 10/27/21 History polyethylene glycoL 3350 [Miralax] 17 gm PO DAILY PRN 10/27/21 10/27/21 History Allergies Allergy/AdvReac Type Severity Reaction Status Date / Time furosemide Allergy Unknown Unknown Verified 10/27/21 17:12 hydrocodone bitartrate Allergy Unknown Hallucinati Verified 10/27/21 17:12 [From Vicodin] ons pravastatin Allergy Unknown Itching, Verified 10/27/21 17:12 face swelling simvastatin Allergy Unknown Itching, Verified 10/27/21 17:12 face swelling Influenza Virus Vaccines Allergy Unknown Verified 10/27/21 17:12 rosuvastatin calcium Allergy fainting Verified 10/27/21 17:12 [From Crestor] Gasfcwc-GWL-JvG Reductase Allergy itching, Verified 10/27/21 17:12 Inhibitor face [Mpfxhch-Wxs-Vlu Reductase swelling Inhibitor] flu vaccine Allergy Unknown Uncoded 10/27/21 14:39 Physical Exam Vitals: Vital Signs Temp Pulse Pulse Resp BP BP Pulse Ox 10/27/21 20:00 97.8 F 85 17 99/56 99 10/27/21 18:33 97.1 F L 94 18 99/58 96 10/27/21 17:15 89 18 98/62 100 10/27/21 17:00 93 18 73/53 98 10/27/21 15:44 82 18 95 10/27/21 14:33 97.4 F L 79 18 103/59 96 Intake and Output 10/27/21 10/27/21 10/27/21 06:59 14:59 22:59 Other: Voiding Method Bedside Commode Diaper # Voids 1 Weight 62.596 kg 62.596 kg Results CBC & Chem 7: 10/27/21 15:19 10/27/21 15:19 Labs: Abnormal Lab Results - Last 24 Hours (Table) 10/27/21 10/27/21 Range/Units 15:19 15:19 PT 12.7 H (9.0-12.0) sec INR 1.2 H (<1.2) Potassium 2.6 L* (3.5-5.1) mmol/L Carbon Dioxide 33 H (22-30) mmol/L BUN 30 H (7-17) mg/dL Creatinine 1.45 H (0.52-1.04) mg/dL Alkaline Phosphatase 277 H (38-126) U/L Albumin 3.4 L (3.5-5.0) g/dL Thrombosis Risk Factor Assmnt - Choose All That Apply Any of the Below Risk Factors Present?: Yes Each Factor Represents 1 point: Swollen legs (current) Other Risk Factors: Yes Each Risk Factor Represents 3 Points: Age 75 years or older Other congenital or acquired thrombophilia - If yes, enter type in comment: No Thrombosis Risk Factor Assessment Total Risk Factor Score: 4 Thrombosis Risk Factor Assessment Level: Moderate Risk
[2021-10-27] MEDS: SODIUM CHLORIDE 0.9% 1,000 ML IV SCH (22:57)
[2021-10-27] MEDS ORDERED: TEMAZEPAM 15 MG CAP PO PRN (23:00)
[2021-10-28 06:57] LABS: Glucose,Whole Blood 144 mg/dL (75-99)
[2021-10-28] MEDS: ESCITALOPRAM 10 MG TAB PO SCH (06:58)
[2021-10-28] MEDS: METOPROLOL TARTRATE 12.5 MG TAB PO SCH ×2 (06:58→19:33)
[2021-10-28] MEDS: LINAGLIPTIN 5 MG TABLET PO SCH (06:58)
[2021-10-28] MEDS: LEVOTHYROXINE 25 MCG TAB PO SCH (06:58)
[2021-10-28] MEDS: BACITRACIN ZINC 500 UNIT/GM OINT 28.4 GM TUBE TOPICAL SCH (06:59)
[2021-10-28] MEDS: VENLAFAXINE HCL ER 75 MG CAP PO SCH (06:59)
[2021-10-28] MEDS: INSULIN ASPART (NovoLOG) 100 UNIT/ML VIAL SQ SCH ×3 (06:59→19:30)
[2021-10-28 07:58] LABS: African American GFR (CKD) 47 (>60 ml/min/1.73 sqM); Anion Gap 4 mmol/L; Blood Urea Nitrogen 23 mg/dL (7-17); Calcium 8.7 mg/dL (8.4-10.2); Carbon Dioxide 30 mmol/L (22-30); Chloride 108 mmol/L (98-107); Glucose 149 mg/dL (74-99); Non-African American GFR(CKD) 41 (>60 ml/min/1.73 sqM); Potassium 3.9 mmol/L (3.5-5.1); Sodium 142 mmol/L (137-145)
[2021-10-28] MEDS ORDERED: APIXABAN 5 MG TAB PO SCH (08:00)
[2021-10-28 08:31] LABS: Appearance,Urine Clear (Clear); Bilirubin,Urine Negative (Negative); Blood,Urine Negative (Negative); Color,Urine Yellow; Glucose,Urine (UA) Negative (Negative); Hyaline Casts,Urine 1 /lpf (0-2); Ketones,Urine Negative (Negative); Leukocyte Esterase,Urine Negative (Negative); Mucus,Urine Rare /hpf; Nitrite,Urine Negative (Negative); Protein,Urine 1+ (Negative); RBC,Urine 1 /hpf (0-5); Specific Gravity,Urine 1.016 (1.001-1.035); Squamous Epithelial Cell,Urine 3 /hpf (0-4); WBC,Urine 2 /hpf (0-5)
[2021-10-28] MEDS ORDERED: LACTULOSE 20 GM/30 ML CUP PO PRN (09:00)
--- NOTE | 2021-10-28 09:53 | P.CRDCN ---
History of Present Illness Consult date: 10/28/21 History of present illness: HISTORY OF PRESENT ILLNESS: This is a 76-year-old female with a past medical history significant for coronary artery disease with previous CABG, hypertension, hyperlipidemia, diabetes, congestive heart failure, paroxysmal atrial fibrillation, moderate to severe aortic stenosis, carotid artery stenosis with previous endarterectomy, and dementia. Patient follows in the office with Dr. Luo. We have been asked to see the patient in consultation for syncope. Patient examined at the bedside. Patient is awake and alert. However she appears confused and is a very poor historian. Apparently, the patient fell yesterday at her assisted living. This was a questionable syncopal episode. The patient does not remember falling yesterday. She has no recollection of the fall. She does report that she has fallen multiple times while living at the assisted living and states the floors there are slippery and she falls. She denies feeling dizzy or lightheaded before she falls. The patient is anticoagulated with Eliquis on an outpatient basis which we will hold due to her multiple falls. The patient was hypotensive when she arrived to the ER. Her blood pressure medications have been held. EKG reveals atrial fibrillation with controlled ventricular rate Chest xray right-sided rib fractures appear acute. Correlate for trauma. Infiltrate at the right base is nonspecific. Correlate for pulmonary contusion. Atelectasis and pneumonia should be considered. Small left pleural effusion. Laboratory data: WBC 6.8. Hemoglobin 12.0. Platelet count 249. Sodium 142. Potassium 2.6. Repeat 3.9. BUN 23. Creatinine 1.27. Troponin negative 1. ProBNP 4730. Current home cardiac medications include amiodarone 200 mg daily, metoprolol succinate when he 5 mg twice a day, lisinopril 10 mg daily, carvedilol 12.5 mg twice a day, Eliquis 5,000,000 g twice a day, and Bumex 1 mg twice a day Most recent echocardiogram obtained in February 2021 revealed ejection fraction 30- 35%, trace aortic regurgitation, moderate to severe aortic stenosis, moderate mitral regurgitation, moderate mitral stenosis, moderate tricuspid regurgitation, and moderate pulmonary hypertension REVIEW OF SYSTEMS: At the time of my exam: CONSTITUTIONAL: Denies fever or chills. HEENT: Denies blurred vision, vision changes, or eye pain. Denies hemoptysis CARDIOVASCULAR: Denies chest pain. Denies orthopnea. Denies PND. Denies palpitations RESPIRATORY: Denies shortness of breath. GASTROINTESTINAL: Denies abdominal pain. Denies nausea or vomiting. HEMATOLOGIC: Denies bleeding disorders. GENITOURINARY: Denies any blood in urine. SKIN: Denies pruitis. Denies rash. PHYSICAL EXAM: VITAL SIGNS: Reviewed. GENERAL: Well-developed in no acute distress. HEENT: Head is normocephalic. Pupils are equal, round. Sclerae anicteric. Mucous membranes of the mouth are moist. Neck supple. No JVD or thyromegaly LUNGS: Respirations even and unlabored. Lungs diminished to auscultation bilaterally. HEART: Irregular rate and rhythm. S1 and S2 heard. Systolic murmur noted. ABDOMEN: Soft. Nondistended. Nontender. EXTREMITIES: Normal range of motion. No clubbing or cyanosis. Peripheral pulses intact. No lower extremity edema NEUROLOGIC: Awake and alert. ASSESSMENT: Fall, questionable syncope Acute right sided rib fractures Hypotension on admission, resolved Hypokalemia, resolved Acute kidney injury Paroxysmal atrial fibrillation with controlled ventricular rate Coronary artery disease with previous CABG Hypertension Hyperlipidemia Diabetes Chronic systolic congestive heart failure. Moderate to severe aortic stenosis Carotid artery stenosis with previous endarterectomy Dementia PLAN: Obtain 2D echo to assess cardiac structure and function Patient reports multiple falls. Will hold Eliquis. Will defer risk versus benefit of continuing anticoagulation to medicine service Continue metoprolol Continue telemetry monitoring for an additional 24 hours No indication for PPM at this time Lisinopril and bumex on hold secondary to RENITA and hypotension Further recommendations pending patient course Nurse practitioner note has been reviewed by physician. Signing provider agrees with the documented findings, assessment, and plan of care. Past Medical History Past Medical History: Coronary Artery Disease (CAD), Heart Failure, Dementia, Diabetes Mellitus, Hyperlipidemia, Hypertension, Myocardial Infarction ([place]) Additional Past Medical History / Comment(s): hx ulcers, hx polyps, silent [place], heart valve issues aortic valve is the worse, bilateral lung pluarcy Last Myocardial Infarction Date:: 2009 History of Any Multi-Drug Resistant Organisms: None Reported Past Surgical History: Coronary Bypass/CABG, Heart Catheterization, Tubal Ligation Additional Past Surgical History / Comment(s): triple bypass, carlene carotid endarterectomy with mesh, valve repair, states no stents in heart, loop recorder removed in 2018, carlene cataracts Past Anesthesia/Blood Transfusion Reactions: No Reported Reaction Date of Last Stent Placement:: 2009 Type of Cardiac Device: Loop Device Placement Date:: 01/22 Past Psychological History: No Psychological Hx Reported Smoking Status: Unknown if ever smoked Past Alcohol Use History: None Reported Additional Past Alcohol Use History / Comment(s): quit smoking in 2009 smoked from teens Past Drug Use History: None Reported - Past Family History Mother Family Medical History: Cancer Additional Family Medical History / Comment(s): BREAST Medications and Allergies Home Medications Medication Instructions Recorded Confirmed Type Apixaban [Eliquis] 5 mg PO BID@08,199902/08/21 10/27/21 History Donepezil [Aricept] 10 mg PO HS@199902/08/21 10/27/21 History Memantine [Namenda] 10 mg PO BID@799,199902/08/21 10/27/21 History Amiodarone [Cordarone] 200 mg PO DAILY@0806/08/21 10/27/21 History Amoxicillin 2,000 mg PO ONCE PRN 06/08/21 10/27/21 History sitaGLIPtin PHOSPHATE [Januvia] 50 mg PO DAILY@0806/08/21 10/27/21 History Acetaminophen Tab [Tylenol Tab] 1,000 mg PO Q8H PRN 10/27/21 10/27/21 History Acetaminophen [Tylenol] 500 mg PO BID PRN 10/27/21 10/27/21 History Albuterol Inhaler [Ventolin Hfa 2 puff INHALATION RT-QID PRN 10/27/21 10/27/21 History Inhaler] Bacitracin Zinc Oint 1 applic TOPICAL DAILY@0810/27/21 10/27/21 History Bumetanide [Bumex] 1 mg PO BID-W/MEALS 10/27/21 10/27/21 History Carvedilol [Coreg] 12.5 mg PO BID@0800,1700 PRN 10/27/21 10/27/21 History Docusate [Colace] 100 mg PO BID PRN 10/27/21 10/27/21 History Escitalopram Oxalate [Lexapro] 10 mg PO DAILY@0800 10/27/21 10/27/21 History Levothyroxine Sodium [Synthroid] 25 mcg PO DAILY@0700 10/27/21 10/27/21 History Lisinopril [Prinivil] 10 mg PO DAILY@0800 10/27/21 10/27/21 History Meloxicam [Mobic] 7.5 mg PO DAILY PRN 10/27/21 10/27/21 History Metoprolol Succinate [Toprol XL] 25 mg PO BID@0800,199910/27/21 10/27/21 His tory Venlafaxine HCl [Effexor XR] 75 mg PO DAILY@0800 10/27/21 10/27/21 History polyethylene glycoL 3350 [Miralax] 17 gm PO DAILY PRN 10/27/21 10/27/21 History Allergies Allergy/AdvReac Type Severity Reaction Status Date / Time furosemide Allergy Unknown Unknown Verified 10/27/21 17:12 hydrocodone bitartrate Allergy Unknown Hallucinati Verified 10/27/21 17:12 [From Vicodin] ons pravastatin Allergy Unknown Itching, Verified 10/27/21 17:12 face swelling simvastatin Allergy Unknown Itching, Verified 10/27/21 17:12 face swelling Influenza Virus Vaccines Allergy Unknown Verified 10/27/21 17:12 rosuvastatin calcium Allergy fainting Verified 10/27/21 17:12 [From Crestor] Abevrsw-VSX-PkL Reductase Allergy itching, Verified 10/27/21 17:12 Inhibitor face [Qnulwbt-Zly-Rne Reductase swelling Inhibitor] flu vaccine Allergy Unknown Uncoded 10/27/21 14:39 Physical Exam Vitals: Vital Signs Temp Pulse Pulse Resp BP BP Pulse Ox 10/28/21 07:00 98.2 F 93 16 132/79 95 10/28/21 06:36 97.3 F L 93 18 119/79 94 L 10/28/21 01:26 97.6 F 93 18 125/78 96 10/27/21 22:41 99 10/27/21 20:00 97.8 F 85 17 99/56 99 10/27/21 18:33 97.1 F L 94 18 99/58 96 10/27/21 17:15 89 18 98/62 100 10/27/21 17:00 93 18 73/53 98 10/27/21 15:44 82 18 95 10/27/21 14:33 97.4 F L 79 18 103/59 96 Intake and Output 10/27/21 10/28/21 10/28/21 22:59 06:59 14:59 Other: Voiding Method Bedside Commode Bedside Commode Bedside Commode Diaper Diaper Diaper # Voids 1 2 Weight 62.596 kg Results 10/27/21 15:19 10/28/21 06:58 Cardiac Enzymes 10/27/21 10/27/21 Range/Units 15:19 15:19 AST 30 (14-36) U/L Troponin I 0.017 (0.000-0.034) ng/mL Coagulation 10/27/21 Range/Units 15:19 PT 12.7 H (9.0-12.0) sec APTT 27.8 (22.0-30.0) sec CBC 10/27/21 Range/Units 15:19 WBC 6.8 (3.8-10.6) k/uL RBC 4.15 (3.80-5.40) m/uL Hgb 12.0 (11.4-16.0) gm/dL Hct 37.8 (34.0-46.0) % Plt Count 249 (150-450) k/uL Comprehensive Metabolic Panel 10/27/21 10/28/21 Range/Units 15:19 06:58 Sodium 140 142 (137-145) mmol/L Potassium 2.6 L* 3.9 (3.5-5.1) mmol/L Chloride 100 108 H (98-107) mmol/L Carbon Dioxide 33 H 30 (22-30) mmol/L BUN 30 H 23 H (7-17) mg/dL Creatinine 1.45 H 1.27 H (0.52-1.04) mg/dL Glucose 90 149 H (74-99) mg/dL Calcium 8.7 8.7 (8.4-10.2) mg/dL AST 30 (14-36) U/L ALT 34 (4-34) U/L Alkaline Phosphatase 277 H (38-126) U/L Total Protein 6.8 (6.3-8.2) g/dL Albumin 3.4 L (3.5-5.0) g/dL Current Medications Generic Name Dose Route Start Last Admin Trade Name Freq PRN Reason Stop Dose Admin Acetaminophen 650 mg 10/27/21 17:46 10/27/21 21:16 Acetaminophen Tab 325 Mg Tab PO 650 mg Q6HR PRN Administration Mild Pain or Fever > 100.5 Albuterol Sulfate 2.5 mg 10/27/21 22:37 Albuterol Nebulized 2.5 Mg/3 Ml INHALATION RT-QID PRN Shortness Of Breath Bacitracin 1 applic 10/28/21 08:00 10/28/21 06:59 Bacitracin Zinc 500 Unit/Gm Oint 28.4 Gm Tube TOPICAL Not Given DAILY@0800 [facility] Protocol Calcium Carbonate/Glycine 1,000 mg 10/27/21 22:41 Calcium Carbonate 500 Mg Chewable PO Q4HR PRN Dyspepsia Escitalopram Oxalate 10 mg 10/28/21 08:00 10/28/21 06:58 Escitalopram 10 Mg Tab PO 10 mg DAILY@0800 [facility] Administration Sodium Chloride 1,000 mls @ 75 mls/hr 10/27/21 22:45 10/27/21 22:57 Saline 0.9% IV 75 mls/hr .[id number] [facility] Administration Insulin Aspart 0 unit 10/28/21 07:30 10/28/21 06:59 Insulin Aspart (Novolog) 100 Unit/Ml Vial SQ Not Given AC-TID [facility] Protocol Lactulose 20 gm 10/28/21 09:00 Lactulose 20 Gm/30 Ml Cup PO DAILY PRN Constipation Levothyroxine Sodium 25 mcg 10/28/21 07:00 10/28/21 06:58 Levothyroxine 25 Mcg Tab PO 25 mcg DAILY@0700 [facility] Administration Linagliptin 5 mg 10/28/21 08:00 10/28/21 06:58 Linagliptin 5 Mg Tablet PO 5 mg DAILY@0800 [facility] Administration Lorazepam 0.5 mg 10/27/21 22:41 Lorazepam 0.5 Mg Tab PO Q6HR PRN Anxiety Metoprolol Tartrate 12.5 mg 10/28/21 09:00 10/28/21 06:58 Metoprolol Tartrate 12.5 Mg Tab PO 12.5 mg BID [facility] Administration Naloxone HCl 0.2 mg 10/27/21 17:14 Naloxone 0.4 Mg/Ml 1 Ml Vial IV Q2M PRN Opioid Reversal Ondansetron HCl 4 mg 10/27/21 17:31 Ondansetron 4 Mg/2 Ml Vial IVP Q8HR PRN Nausea And Vomiting Temazepam 15 mg 10/27/21 23:00 Temazepam 15 Mg Cap PO HS PRN Insomnia Venlafaxine HCl 75 mg 10/28/21 08:00 10/28/21 06:59 Venlafaxine Hcl Er 75 Mg Cap PO 75 mg DAILY@0800 [facility] Administration Intake and Output 10/27/21 10/28/21 10/28/21 22:59 06:59 14:59 Other: Voiding Method Bedside Commode Bedside Commode Bedside Commode Diaper Diaper Diaper # Voids 1 2 Weight 62.596 kg 10/27/21 15:19 10/28/21 06:58
--- NOTE | 2021-10-28 12:00 | ECHOF ---
Referral Reason:CHF MEASUREMENTS -------- HEIGHT: 170.2 cm WEIGHT: 62.6 kg BP: 132/79 RVIDd: 3.4 cm (< 3.3) IVSd: 1.3 cm (0.6 - 1.1) LVIDd: 4.0 cm (3.9 - 5.3) LVPWd: 1.3 cm (0.6 - 1.1) IVSs: 1.6 cm LVIDs: 3.4 cm LVPWs: 1.9 cm LA Diam: 4.1 cm (2.7 - 3.8) LAESV Index (A-L): 36.48 ml/m Ao Diam: 3.0 cm (2.0 - 3.7) MV EXCURSION: 6.247 mm (> 18.000) MV EF SLOPE: 25 mm/s (70 - 150) EPSS: 1.6 cm AV maxP.82 mmHg AV meanP.98 mmHg AR PHT: 270 ms RAP: 5.00 mmHg RVSP: 48.33 mmHg FINDINGS -------- Atrial fibrillation. This was a technically good study. The left ventricular size is normal. There is mild concentric left ventricular hypertrophy. Overa ll left ventricular systolic function is severely impaired with, an EF between 25 - 30 %. The right ventricle is mildly enlarged. LA is moderately dilated 34-39 ml/m2 The right atrium is normal in size. Interatrial and interventricular septum intact. There is mild aortic regurgitation. There is moderate aortic stenosis present. Peak/mean gradient across the Aortic Valve is 38.82mmHg / 18.98mmHg. The mitral valve leaflets are mildly thickened. Mild mitral annular calcification present. Modera te mitral regurgitation is present. The peak and mean MV gradients are 25.00mmHg 9.81mmHg as measu red by doppler. Moderate tricuspid regurgitation present. There is moderate pulmonary hypertension. The right luis carlos tricular systolic pressure, as measured by Doppler, is 48.33mmHg. Moderate pulmonic regurgitation. The aortic root size is normal. Normal inferior vena cava with normal inspiratory collapse consistent with estimated right atrial pre ssure of 5 mmHg. The inferior vena cava is mildly dilated. There is no pericardial effusion. CONCLUSIONS -------- 1. The left ventricular size is normal. 2. There is mild concentric left ventricular hypertrophy. 3. Overall left ventricular systolic function is severely impaired with, an EF between 25 - 30 %. 4. The right ventricle is mildly enlarged. 5. LA is moderately dilated 34-39 ml/m2 6. There is mild aortic regurgitation. 7. There is moderate aortic stenosis present. 8. Peak/mean gradient across the Aortic Valve is 38.82mmHg / 18.98mmHg. 9. The mitral valve leaflets are mildly thickened. 10. Mild mitral annular calcification present. 11. Moderate mitral regurgitation is present. 12. The peak and mean MV gradients are 25.00mmHg 9.81mmHg as measured by doppler. 13. Moderate tricuspid regurgitation present. 14. There is moderate pulmonary hypertension. 15. The right ventricular systolic pressure, as measured by Doppler, is 48.33mmHg. 16. Moderate pulmonic regurgitation. 17. There is no pericardial effusion. TRUCK MECHANIC: Ira Jameson RDCS
[2021-10-28 12:38] LABS: Glucose,Whole Blood 123 mg/dL (75-99)
[2021-10-28] MEDS: SODIUM CHLORIDE 0.9% 1,000 ML IV SCH (13:52)
--- NOTE | 2021-10-28 14:55 | P.GSCN ---
History of Present Illness Consult date: 10/28/21 History of present illness: CHIEF COMPLAINT: Syncope HISTORY OF PRESENT ILLNESS: This is a 76-year-old female who presented to the emergency room after a fall and possible syncopal episode. Patient lives in assisted living facility. Patient is a poor historian. She does have a significant cardiac history and is on Eliquis for her atrial fibrillation. Patient does not remember the fall. She reports that she has fallen multiple times. Patient denies any rib pain. She does not remember injuring her ribs. Chest x-ray had shown fractures of the eighth and ninth rib and possible pulmonary contusion. Surgical service was consulted for rib fractures and traum a. Patient also being evaluated by cardiology for syncope. Patient has hypotension that has now improved. Patient denies any abdominal pain. Patient is on room air satting at 95%. Patient seen and examined with Dr. tom PAST MEDICAL HISTORY: Coronary disease with cardiac stent and CABG, dementia, diabetes mellitus, hyperlipidemia, hypertension, myocardial infarction, ulcers, moderate to severe aortic stenosis PAST SURGICAL HISTORY: Bilateral carotid endarterectomy MEDICATIONS: See list. ALLERGIES: See list. SOCIAL HISTORY: No illicit drug use. REVIEW OF SYSTEMS: CONSTITUTIONAL: Denies fever or chills. HEENT: Denies blurred vision, vision changes, or eye pain. Denies hemoptysis CARDIOVASCULAR: Denies chest pain or pressure. RESPIRATORY: No shortness of breath. GASTROINTESTINAL: See HPI for pertinent findings HEMATOLOGIC: Denies bleeding disorders. GENITOURINARY: Denies any blood in urine or increased urinary frequency. SKIN: Denies pruitis. Denies rash. PHYSICAL EXAM: VITAL SIGNS: Reviewed GENERAL: Well-developed in no acute distress. HEENT: No sclera icterus. Extraocular movements grossly intact. Moist buccal mucosa. Head is atraumatic, normocephalic. No nasal drainage. Chest: Nontender with palpation of rib cage on the right. No bruising or abras ions noted ABDOMEN: Soft. Nondistended. Nontender NEUROLOGIC: Alert and oriented 2. She knows her name and place LABORATORY DATA: WBC 6.8 hemoglobin 12 platelets 249 INR 1.2 Sodium 142 potassium 2.6 up to 3.9 creatinine 1.45-1.27 LFTs normal Troponin 0.017 IMAGING: Chest x-ray right-sided rib fractures appear Acute. Fractures of the posterior lateral eighth and ninth ribs. Infiltrate at the right base is nonspecific. Correlate for pulmonary contusion. Atelectasis and pneumonia could be considered. Small left pleural effusion. ASSESSMENT: 1. Fall 2. Right rib fractures of the eighth and ninth rib 3. Possible syncopal episode 4. Hypotension 5. Acute kidney injury 6. Hypokalemia improved 7. Possible pulmonary contusion PLAN: -Repeat chest x-ray in a.m. -Continue supportive care -Continue cardiac monitoring -Incentive spirometer ordered -Continue Tylenol as needed for pain Thank you for this consultation Physician Portable Machine Cutter note has been reviewed by physician. Signing provider agrees with the documented findings, assessment, and plan of care. Past Medical History Past Medical History: Coronary Artery Disease (CAD), Heart Failure, Dementia, Diabetes Mellitus, Hyperlipidemia, Hypertension, Myocardial Infarction (RI) Additional Past Medical History / Comment(s): hx ulcers, hx polyps, silent RI, heart valve issues aortic valve is the worse, bilateral lung pluarcy Last Myocardial Infarction Date:: 2009 History of Any Multi-Drug Resistant Organisms: None Reported Past Surgical History: Coronary Bypass/CABG, Heart Catheterization, Tubal Ligation Additional Past Surgical History / Comment(s): triple bypass, carlene carotid endarterectomy with mesh, valve repair, states no stents in heart, loop recorder removed in 2018, carlene cataracts Past Anesthesia/Blood Transfusion Reactions: No Reported Reaction Date of Last Stent Placement:: 2009 Type of Cardiac Device: Loop Device Placement Date:: 01/22 Past Psychological History: No Psychological Hx Reported Smoking Status: Unknown if ever smoked Past Alcohol Use History: None Reported Additional Past Alcohol Use History / Comment(s): quit smoking in 2009 smoked from teens Past Drug Use History: None Reported - Past Family History Mother Family Medical History: Cancer Additional Family Medical History / Comment(s): BREAST Medications and Allergies Home Medications Medication Instructions Recorded Confirmed Type Apixaban [Eliquis] 5 mg PO BID@0800,199902/08/21 10/27/21 History Donepezil [Aricept] 10 mg PO HS@199902/08/21 10/27/21 History Memantine [Namenda] 10 mg PO BID@0800,199902/08/21 10/27/21 History Amiodarone [Cordarone] 200 mg PO DAILY@0800 06/08/21 10/27/21 History Amoxicillin 2,000 mg PO ONCE PRN 06/08/21 10/27/21 History sitaGLIPtin PHOSPHATE [Januvia] 50 mg PO DAILY@0800 06/08/21 10/27/21 History Acetaminophen Tab [Tylenol Tab] 1,000 mg PO Q8H PRN 10/27/21 10/27/21 History Acetaminophen [Tylenol] 500 mg PO BID PRN 10/27/21 10/27/21 History Albuterol Inhaler [Ventolin Hfa 2 puff INHALATION RT-QID PRN 10/27/21 10/27/21 History Inhaler] Bacitracin Zinc Oint 1 applic TOPICAL DAILY@0800 10/27/21 10/27/21 History Bumetanide [Bumex] 1 mg PO BID-W/MEALS 10/27/21 10/27/21 History Carvedilol [Coreg] 12.5 mg PO BID@0800,1700 PRN 10/27/21 10/27/21 History Docusate [Colace] 100 mg PO BID PRN 10/27/21 10/27/21 History Escitalopram Oxalate [Lexapro] 10 mg PO DAILY@0800 10/27/21 10/27/21 History Levothyroxine Sodium [Synthroid] 25 mcg PO DAILY@0700 10/27/21 10/27/21 History Lisinopril [Prinivil] 10 mg PO DAILY@0800 10/27/21 10/27/21 History Meloxicam [Mobic] 7.5 mg PO DAILY PRN 10/27/21 10/27/21 History Metoprolol Succinate [Toprol XL] 25 mg PO BID@0800,2000 10/27/21 10/27/21 History Venlafaxine HCl [Effexor XR] 75 mg PO DAILY@0800 10/27/21 10/27/21 History polyethylene glycoL 3350 [Miralax] 17 gm PO DAILY PRN 10/27/21 10/27/21 History Allergies Allergy/AdvReac Type Severity Reaction Status Date / Time furosemide Allergy Unknown Unknown Verified 10/27/21 17:12 hydrocodone bitartrate Allergy Unknown Hallucinati Verified 10/27/21 17:12 [From Vicodin] ons pravastatin Allergy Unknown Itching, Verified 10/27/21 17:12 face swelling simvastatin Allergy Unknown Itching, Verified 10/27/21 17:12 face swelling Influenza Virus Vaccines Allergy Unknown Verified 10/27/21 17:12 rosuvastatin calcium Allergy fainting Verified 10/27/21 17:12 [From Crestor] Vhnznza-NOR-[id number] Reductase Allergy itching, Verified 10/27/21 17:12 Inhibitor face [Guhpxwo-Qrg-Qbr Reductase swelling Inhibitor] flu vaccine Allergy Unknown Uncoded 10/27/21 14:39 Surgical - Exam Vital Signs Temp Pulse Resp BP Pulse Ox 97.4 F L 79 18 103/59 96 10/27/21 14:33 10/27/21 14:33 10/27/21 14:33 10/27/21 14:33 10/27/21 14:33 Results - Labs 10/27/21 15:19 10/28/21 06:58 Abnormal Lab Results - Last 24 Hours (Table) 10/27/21 10/27/21 10/28/21 Range/Units 15:19 15:19 06:56 PT 12.7 H (9.0-12.0) sec INR 1.2 H (<1.2) Potassium 2.6 L* (3.5-5.1) mmol/L Chloride (98-107) mmol/L Carbon Dioxide 33 H (22-30) mmol/L BUN 30 H (7-17) mg/dL Creatinine 1.45 H (0.52-1.04) mg/dL Glucose (74-99) mg/dL POC Glucose (mg/dL) 144 H (75-99) mg/dL Alkaline Phosphatase 277 H (38-126) U/L Albumin 3.4 L (3.5-5.0) g/dL Urine Protein (Negative) Urine Mucus (None) /hpf 10/28/21 10/28/21 Range/Units 06:58 07:40 PT (9.0-12.0) sec INR (<1.2) Potassium (3.5-5.1) mmol/L Chloride 108 H (98-107) mmol/L Carbon Dioxide (22-30) mmol/L BUN 23 H (7-17) mg/dL Creatinine 1.27 H (0.52-1.04) mg/dL Glucose 149 H (74-99) mg/dL POC Glucose (mg/dL) (75-99) mg/dL Alkaline Phosphatase (38-126) U/L Albumin (3.5-5.0) g/dL Urine Protein 1+ H (Negative) Urine Mucus Rare H (None) /hpf Diabetes panel 10/27/21 10/28/21 Range/Units 15:19 06:58 Sodium 140 142 (137-145) mmol/L Potassium 2.6 L* 3.9 (3.5-5.1) mmol/L Chloride 100 108 H (98-107) mmol/L Carbon Dioxide 33 H 30 (22-30) mmol/L BUN 30 H 23 H (7-17) mg/dL Creatinine 1.45 H 1.27 H (0.52-1.04) mg/dL Glucose 90 149 H (74-99) mg/dL Calcium 8.7 8.7 (8.4-10.2) mg/dL AST 30 (14-36) U/L ALT 34 (4-34) U/L Alkaline Phosphatase 277 H (38-126) U/L Total Protein 6.8 (6.3-8.2) g/dL Albumin 3.4 L (3.5-5.0) g/dL Calcium panel 10/27/21 10/28/21 Range/Units 15:19 06:58 Calcium 8.7 8.7 (8.4-10.2) mg/dL Albumin 3.4 L (3.5-5.0) g/dL Pituitary panel 10/27/21 10/28/21 Range/Units 15:19 06:58 Sodium 140 142 (137-145) mmol/L Potassium 2.6 L* 3.9 (3.5-5.1) mmol/L Chloride 100 108 H (98-107) mmol/L Carbon Dioxide 33 H 30 (22-30) mmol/L BUN 30 H 23 H (7-17) mg/dL Creatinine 1.45 H 1.27 H (0.52-1.04) mg/dL Glucose 90 149 H (74-99) mg/dL Calcium 8.7 8.7 (8.4-10.2) mg/dL Adrenal panel 10/27/21 10/28/21 Range/Units 15:19 06:58 Sodium 140 142 (137-145) mmol/L Potassium 2.6 L* 3.9 (3.5-5.1) mmol/L Chloride 100 108 H (98-107) mmol/L Carbon Dioxide 33 H 30 (22-30) mmol/L BUN 30 H 23 H (7-17) mg/dL Creatinine 1.45 H 1.27 H (0.52-1.04) mg/dL Glucose 90 149 H (74-99) mg/dL Calcium 8.7 8.7 (8.4-10.2) mg/dL Total Bilirubin 0.9 (0.2-1.3) mg/dL AST 30 (14-36) U/L ALT 34 (4-34) U/L Alkaline Phosphatase 277 H (38-126) U/L Total Protein 6.8 (6.3-8.2) g/dL Albumin 3.4 L (3.5-5.0) g/dL
[2021-10-28 17:23] LABS: Glucose,Whole Blood 126 mg/dL (75-99)
[2021-10-28 20:44] LABS: Glucose,Whole Blood 164 mg/dL (75-99)
--- NOTE | 2021-10-28 21:39 | P.PN ---
Progress Note - Text Progress Note Date: 10/28/21 Chief Complaint: Low heart rate This is a 76-year-old patient who follows with visiting physicians Dr. Bonilla. Chronic stable medical conditions include CAD with history of bypass, CHF, dementia, diabetes, hypertension, hyperlipidemia. Patient is at [facility] home. Patient was sent in by her associate professor of surgery Dr. Luo after the patient was found to have a low blood pressure and low heart rate. Patient had a syncopal episode yesterday that resulted to the associate professor of surgery visit. Patient denied any dizziness or lightheadedness. It may be noted because of dementia patient is a poor historian. Blood pressure at the [facility] home was 88/53. Patient really cannot give much of history except for simple questions. Denies any shortness of breath or cough no fever no chills. Appetite is good. Admitted with hypotension, bradycardia from beta blockers acute kidney injury, acute kidney injury from decreased oral intake,. Patient is dose of beta blockers cutback. Mobic was held. Bumex interval held. IV fluids. October 28: Patient had all her breakfast. No lunch. Continue IV fluids. Heart rate controlled.. No chest pain. Breathing stable. Comfortable Review of systems: Was done for constitutional, cardiovascular, GI, pulmonary. relevant finding as above Active Medications Acetaminophen (Acetaminophen Tab 325 Mg Tab) 650 mg PO Q6HR PRN PRN Reason: Mild Pain or Fever > 100.5 Last Admin: 10/27/21 21:16 Dose: 650 mg Documented by: Albuterol Sulfate (Albuterol Nebulized 2.5 Mg/3 Ml) 2.5 mg INHALATION RT-QID PRN PRN Reason: Shortness Of Breath Amiodarone HCl (Amiodarone 200 Mg Tab) 200 mg PO DAILY@0800 [facility] Bacitracin (Bacitracin Zinc 500 Unit/Gm Oint 28.4 Gm Tube) 1 applic TOPICAL DAILY@0800 [facility]; Protocol Last Admin: 10/28/21 06:59 Dose: Not Given Documented by: Calcium Carbonate/Glycine (Calcium Carbonate 500 Mg Chewable) 1,000 mg PO Q4HR PRN PRN Reason: Dyspepsia Escitalopram Oxalate (Escitalopram 10 Mg Tab) 10 mg PO DAILY@0800 [facility] Last Admin: 10/28/21 06:58 Dose: 10 mg Documented by: Sodium Chloride (Saline 0.9%) 1,000 mls @ 75 mls/hr IV .[id number] [facility] Last Admin: 10/28/21 13:52 Dose: 75 mls/hr Documented by: Insulin Aspart (Insulin Aspart (Novolog) 100 Unit/Ml Vial) 0 unit SQ AC-TID [facility]; Protocol Last Admin: 10/28/21 19:30 Dose: Not Given Documented by: Lactulose (Lactulose 20 Gm/30 Ml Cup) 20 gm PO DAILY PRN PRN Reason: Constipation Levothyroxine Sodium (Levothyroxine 25 Mcg Tab) 25 mcg PO DAILY@0700 [facility] Last Admin: 10/28/21 06:58 Dose: 25 mcg Documented by: Linagliptin (Linagliptin 5 Mg Tablet) 5 mg PO DAILY@0800 [facility] Last Admin: 10/28/21 06:58 Dose: 5 mg Documented by: Lorazepam (Lorazepam 0.5 Mg Tab) 0.5 mg PO Q6HR PRN PRN Reason: Anxiety Last Admin: 10/28/21 19:32 Dose: 0.5 mg Documented by: Metoprolol Tartrate (Metoprolol Tartrate 12.5 Mg Tab) 12.5 mg PO BID [facility] Last Admin: 10/28/21 19:33 Dose: 12.5 mg Documented by: Naloxone HCl (Naloxone 0.4 Mg/Ml 1 Ml Vial) 0.2 mg IV Q2M PRN PRN Reason: Opioid Reversal Ondansetron HCl (Ondansetron 4 Mg/2 Ml Vial) 4 mg IVP Q8HR PRN PRN Reason: Nausea And Vomiting Temazepam (Temazepam 15 Mg Cap) 15 mg PO HS PRN PRN Reason: Insomnia Last Admin: 10/28/21 19:32 Dose: 15 mg Documented by: Venlafaxine HCl (Venlafaxine Hcl Er 75 Mg Cap) 75 mg PO DAILY@0800 [facility] Last Admin: 10/28/21 06:59 Dose: 75 mg Documented by: Past medical history to include: CAD with bypass, CHF, dementia, diabetes, hypertension, hyperlipidemia, ulcers, Social history: Lives at [facility]. Patient smoked for about 50 years stopped in 2009. No alcohol reported. Family history: Breast cancer Physical examination: VITAL SIGNS: 97.8, 112, 18, 111/72, 96% room air GENERAL: sitting up, awake, comfortable. EYES: Pupils equal. Conjunctiva normal. HEENT: External appearance of nose and ears normal, oral cavity grossly normal. NECK: JVD not raised; masses not palpable. HEART: First and second heart sounds are normal; no edema. LUNGS: Respiratory rate normal; decreased breath sounds. ABDOMEN: Soft, nontender, liver spleen not palpable, no masses palpable. PSYCH: Patient does not know where she is. She thinks his 1944. Does not know why she is here. MUSCULOSKELETAL:No Clubbing/cyanosis;muscles-grossly intact. Evidence of OA INVESTIGATIONS, reviewed in the clinical context: October 28: Sodium 142 potassium 3.9 BUN 23 creatinine 1.27 2-D echocardiogram: EF 25-30% moderate aortic stenosis. Moderate MR. Moderate TR. Moderate pulmonary hypertension. Moderate NH White count 6.8 hemoglobin 12 platelets 249 sodium 140 potassium 2.6 BUN 30 creatinine 1.45 Troponin I 0.017 Coronavirus [PCR]: Not detected EKG tracing personally reviewed by me-atrial fibrillation. ST segment depression in leads V4 to V6 possibly one aVF. Chest x-ray film personally reviewed by [id number] rib fractures. Possible atelectasis. Previous labs: Creatinine 0.72 on February 2021 Assessment and plan: -Patient is found to be hypotensive and bradycardic outpatient. Currently the heart rate is up. Telemetry. -Bradycardia reported. Note patient's both on Toprol-XL and Coreg. Corrected Lopressor 12.5 by mouth twice a day -Persistent atrial fibrillation. Rate controlled. Telemetry. Lopressor 12.5 by mouth twice a day -Acute kidney injury the patient's creatinine being 0.72, February 2021. Gentle hydration given the history of CHF. -Hypotension, possibly from kidney injury: Slow to respond IV fluids -Moderate mitral regurgitation, moderate tricuspid regurgitation, moderate pulmonary regurgitation Follow clinically -Secondary pulmonary hypertension due to CHF Follow clinically -Major cognitive impairment from late onset Alzheimer's dementia -Essential hypertension Coreg. Toprol-XL., Prinivil.- 3 were held. Currently Lopressor 12.5 by mouth twice a day -Chronic congestive heart failure from systolic dysfunction EF 25-30 % Follow clinically -Diabetes mellitus type 2, oral hypoglycemic Follow Accu-Cheks. Januvia 50 mg a day Lopressor 12.5 by mouth twice a day in the morning. IV fluids 75 mL an hour. Patient was falling because of low blood pressure bradycardia. If these are connected patient should be able to continue with eliquis. Repeat labs. Add Aldactone 25 mg in the morning
[2021-10-29] MEDS: SODIUM CHLORIDE 0.9% 1,000 ML IV SCH (00:27)
[2021-10-29 06:38] LABS: African American GFR (CKD) 54 (>60 ml/min/1.73 sqM); Anion Gap 11 mmol/L; Blood Urea Nitrogen 22 mg/dL (7-17); Calcium 9.1 mg/dL (8.4-10.2); Carbon Dioxide 24 mmol/L (22-30); Chloride 108 mmol/L (98-107); Glucose 161 mg/dL (74-99); Non-African American GFR(CKD) 46 (>60 ml/min/1.73 sqM); Sodium 143 mmol/L (137-145)
[2021-10-29 07:56] LABS: Glucose,Whole Blood 142 mg/dL (75-99)
[2021-10-29] MEDS: SPIRONOLACTONE 25 MG TAB PO SCH (08:25)
[2021-10-29] MEDS: INSULIN ASPART (NovoLOG) 100 UNIT/ML VIAL SQ SCH ×3 (08:25→17:35)
[2021-10-29] MEDS: VENLAFAXINE HCL ER 75 MG CAP PO SCH (08:26)
[2021-10-29] MEDS: AMIODARONE 200 MG TAB PO SCH (08:26)
[2021-10-29] MEDS: ESCITALOPRAM 10 MG TAB PO SCH (08:26)
[2021-10-29] MEDS: LEVOTHYROXINE 25 MCG TAB PO SCH (08:26)
[2021-10-29] MEDS: LINAGLIPTIN 5 MG TABLET PO SCH (08:26)
[2021-10-29] MEDS: METOPROLOL TARTRATE 12.5 MG TAB PO SCH ×2 (08:26→16:09)
[2021-10-29] MEDS ORDERED: METOPROLOL TARTRATE 12.5 MG TAB PO SCH (09:00)
--- NOTE | 2021-10-29 10:50 | XR ---
EXAMINATION TYPE: XR chest 2V DATE OF EXAM: 10/29/2021 COMPARISON: 10/27/2021 INDICATION: Pulmonary contusion trauma, fall TECHNIQUE: Frontal and lateral views of the chest are obtained. FINDINGS: The heart size is mildly prominent. The pulmonary vasculature is normal. Right lower lobe infiltrate is present can be related to pulmonary contusion. Right rib deformity is evident. The previous displaced fractures are not as clearly evident on this exam. No pneumothorax is evident. Small left pleural fluid is increasing from comparison.. IMPRESSION: 1. Right lower lobe infiltrate can't be compatible with pulmonary contusion 2. Right thoracic rib deformity. Displaced rib fractures from prior exam are not identified. 3. Increasing small left pleural fluid. Consider hemothorax differential.
[2021-10-29 11:03] LABS: Glucose,Whole Blood 143 mg/dL (75-99)
[2021-10-29] MEDS ORDERED: BUMETANIDE 0.25 MG/ML 10 ML VIAL IV SCH (11:30)
--- NOTE | 2021-10-29 12:30 | P.PN ---
Subjective Progress Note Date: 10/29/21 HISTORY OF PRESENT ILLNESS: This is a 76-year-old female with a past medical history significant for coronary artery disease with previous CABG, hypertension, hyperlipidemia, diabetes, congestive heart failure, paroxysmal atrial fibrillation, moderate to severe aortic stenosis, carotid artery stenosis with previous endarterectomy, and dementia. Patient follows in the office with Dr. Luo. We have been asked to see the patient in consultation for syncope. Patient examined at the bedside. Patient is awake and alert. However she appears confused and is a very poor historian. Apparently, the patient fell yesterday at her assisted living. This was a questionable syncopal episode. The patient does not remember falling yesterday. She has no recollection of the fall. She does report that she has fallen multiple times while living at the assisted living and states the floors there are slippery and she falls. She denies feeling dizzy or lightheaded before she falls. The patient is anticoagulated with Eliquis on an outpatient basis which we will hold due to her multiple falls. The patient was hypotensive when she arrived to the ER. Her blood pressure medications have been held. EKG reveals atrial fibrillation with controlled ventricular rate Chest xray right-sided rib fractures appear acute. Correlate for trauma. Infiltrate at the right base is nonspecific. Correlate for pulmonary contusion. Atelectasis and pneumonia should be considered. Small left pleural effusion. Laboratory data: WBC 6.8. Hemoglobin 12.0. Platelet count 249. Sodium 142. Potassium 2.6. Repeat 3.9. BUN 23. Creatinine 1.27. Troponin negative 1. ProBNP 4730. Current home cardiac medications include amiodarone 200 mg daily, metoprolol succinate when he 5 mg twice a day, lisinopril 10 mg daily, carvedilol 12.5 mg twice a day, Eliquis 5,000,000 g twice a day, and Bumex 1 mg twice a day Most recent echocardiogram obtained in February 2021 revealed ejection fraction 30- 35%, trace aortic regurgitation, moderate to severe aortic stenosis, moderate mitral regurgitation, moderate mitral stenosis, moderate tricuspid regurgitation, and moderate pulmonary hypertension 10/29/2021 Patient examined this morning at the bedside. Patient is confused. She denies chest pain or pressure. Blood pressure stable with a SBP ranging between 90-120. Heart rate 90-120. No bradycardia has been visualized on telemetry. Echocardiogram completed revealing ejection fraction 25-30%, moderate aortic stenosis, moderate mitral regurgitation, moderate tricuspid regurgitation, and moderate pulmonary hypertension. PHYSICAL EXAM: VITAL SIGNS: Reviewed. GENERAL: Well-developed in no acute distress. HEENT: Head is normocephalic. Pupils are equal, round. Sclerae anicteric. Mucous membranes of the mouth are moist. Neck supple. No JVD or thyromegaly LUNGS: Respirations even and unlabored. Lungs diminished to auscultation bilaterally. HEART: Irregular rate and rhythm. S1 and S2 heard. Systolic murmur noted. EXTREMITIES: Normal range of motion. No clubbing or cyanosis. Peripheral pulses intact. No lower extremity edema ASSESSMENT: Fall, questionable syncope Acute right sided rib fractures Hypotension on admission, resolved Hypokalemia, resolved Acute kidney injury Paroxysmal atrial fibrillation with controlled ventricular rate Coronary artery disease with previous CABG Hypertension Hyperlipidemia Diabetes Chronic systolic congestive heart failure. Moderate to severe aortic stenosis Carotid artery stenosis with previous endarterectomy Dementia PLAN: No bradycardia seen on telemetry. Patients heart rate actually on the higher side today ranging between 90-120. We will increase her metoprolol to 12.5mg TID No indication for PPM Patient reports multiple falls at her assisted living. Will defer anticoagulation to internal medicine. Resume Bumex May continue to hold lisinopril at discharge and monitor BP on an outpatient basis No further cardiac workup at this time. Patient is stable for discharge from a cardiac standpoint She is to follow up outpatient with Dr. Luo We will sign off. Please reconsult if needed. Nurse practitioner note has been reviewed by physician. Signing provider agrees with the documented findings, assessment, and plan of care. Objective - Vital Signs Vital signs: Vital Signs Temp 97.4 F L 10/29/21 07:00 Pulse 100 10/29/21 07:00 Resp 20 10/29/21 07:07 BP 96/67 10/29/21 07:00 Pulse Ox 91 L 10/29/21 07:00 Intake & Output 10/28/21 10/29/21 10/29/21 18:59 06:59 18:59 Intake Total 522 118 Balance 522 118 Intake: Intake, IV Titration 300 Amount Sodium Chloride 0.9% 1, 300 000 ml @ 75 mls/hr IV . [id number] [facility] Rx#:[id number] Oral 222 118 Other: Voiding Method Bedside Commode Diaper Diaper Incontinent # Voids 1 1 - Labs CBC & Chem 7: 10/27/21 15:19 10/29/21 05:34 Labs: Abnormal Lab Results - Last 24 Hours (Table) 10/28/21 10/28/21 10/28/21 Range/Units 12:27 17:22 20:43 Chloride (98-107) mmol/L BUN (7-17) mg/dL Creatinine (0.52-1.04) mg/dL Glucose (74-99) mg/dL POC Glucose (mg/dL) 123 H 126 H 164 H (75-99) mg/dL 10/29/21 10/29/21 10/29/21 Range/Units 05:34 07:54 11:01 Chloride 108 H (98-107) mmol/L BUN 22 H (7-17) mg/dL Creatinine 1.14 H (0.52-1.04) mg/dL Glucose 161 H (74-99) mg/dL POC Glucose (mg/dL) 142 H 143 H (75-99) mg/dL
[2021-10-29] MEDS: BACITRACIN ZINC 500 UNIT/GM OINT 28.4 GM TUBE TOPICAL SCH (13:59)
--- NOTE | 2021-10-29 14:58 | P.PN ---
Subjective Progress Note Date: 10/29/21 CHIEF COMPLAINT: Fall with possible syncope HISTORY OF PRESENT ILLNESS: Patient lying in bed comfortably. She is complaining of some right-sided rib pain today. Denies any shortness of breath. She is on room air satting at 91%. She has had tachycardia. Afebrile. Sodium 143 potassium 4.0 creatinine 1.14 chest x-ray for today right lower lobe infiltrate can be compatible with pulmonary contusion right thoracic rib deformity displaced rib fractures from prior exam are not identified. No pneumothorax is evident. Increasing small left pleural fluid. Consider hemothorax. PHYSICAL EXAM: VITAL SIGNS: Reviewed. GENERAL: Well-developed in no acute distress. HEENT: No sclera icterus. Extraocular movements grossly intact. Moist buccal mucosa. Head is atraumatic, normocephalic. ABDOMEN: Soft. Nondistended. Nontender. NEUROLOGIC: Alert and oriented 2 with confusion ASSESSMENT: 1. Fall 2. Right rib fractures of the eighth and ninth rib 3. Possible syncopal episode 4. Hypotension 5. Acute kidney injury 6. Hypokalemia improved 7. Possible pulmonary contusion 8. Possible hemothorax PLAN: -Consult pulmonary service and cardiothoracic service for possible hemothorax -Hold Eliquis -Continue supportive care -Continue incentive spirometer -Encourage patient to increase activity level -Continue to monitor oxygen saturation -Consult physical therapy -Continue Tylenol nausea for pain Physician Parks Worker note has been reviewed by physician. Signing provider agrees with the documented findings, assessment, and plan of care. Objective - Vital Signs Vital signs: Vital Signs Temp 97.4 F L 10/29/21 07:00 Pulse 100 10/29/21 07:00 Resp 20 10/29/21 07:07 BP 96/67 10/29/21 07:00 Pulse Ox 91 L 10/29/21 07:00 Intake & Output 10/28/21 10/29/21 10/29/21 18:59 06:59 18:59 Intake Total 522 268 Balance 522 268 Intake: Intake, IV Titration 300 150 Amount Sodium Chloride 0.9% 1, 300 150 000 ml @ 75 mls/hr IV . [id number] [facility] Rx#:[id number] Oral 222 118 Other: Voiding Method Bedside Commode Diaper Diaper Incontinent # Voids 1 1 - Labs CBC & Chem 7: 10/27/21 15:19 10/29/21 05:34 Labs: Abnormal Lab Results - Last 24 Hours (Table) 10/28/21 10/28/21 10/29/21 Range/Units 17:22 20:43 05:34 Chloride 108 H (98-107) mmol/L BUN 22 H (7-17) mg/dL Creatinine 1.14 H (0.52-1.04) mg/dL Glucose 161 H (74-99) mg/dL POC Glucose (mg/dL) 126 H 164 H (75-99) mg/dL 10/29/21 10/29/21 Range/Units 07:54 11:01 Chloride (98-107) mmol/L BUN (7-17) mg/dL Creatinine (0.52-1.04) mg/dL Glucose (74-99) mg/dL POC Glucose (mg/dL) 142 H 143 H (75-99) mg/dL
--- NOTE | 2021-10-29 15:55 | P.CNPUL ---
History of Present Illness Consult date: 10/29/21 Requesting physician: George Fernandes Chief complaint: Fractures, pulmonary contusion History of present illness: This is a 76-year-old female patient with past medical history of dementia, hypertension, hyperlipidemia, diabetes mellitus type 2, coronary artery disease with history of bypass grafting who resides at an assisted living facility. On 10/27/2021 patient was taken to see her revenue accounting manager Dr. Luo for evaluation of hypotension with syncope and irregular heartbeat. Patient is a poor historian, in addition patient had fallen the day before at the assisted living home. Patient could not recall if there was loss of consciousness before or after the fall, no reported head trauma. Patient was complaining of right-sided back pain since the fall. No complaint of chest pain, no shortness of breath, no fatigue weakness, no fever, no known coronary exposure. Her daughters reported to the nursing staff that the patient has been experiencing syncopal episodes intermittently for 2 years. Blood pressure at the [facility] home was 88/50. Dr. Luo sent the patient in to the ER for evaluation for potential pacemaker insertion. EKG in the emergency department showed atrial fibrillation with PVCs and the rate of 86 BPM, ST segment depression and T-wave inversion in the inferior lateral leads. Chest x-ray showed a right-sided rib fractures, infiltrate at the right base correlate for pulmonary contusion, atelectasis and pneumonia or being considered but pneumonia seems to be less likely, there was a small left-sided pleural effusion. Echocardiogram showed mild concentric LVH, severely impaired LV function with EF of 25-30%, moderate aortic stenosis with peak/mean gradient across the aortic valve of 38.8 mmHg/18.9 mmHg, moderate mitral regurgitation and moderate tricuspid regurgitation, and moderately severe pulmonary hypertension with right-sided pressure of 48.3 mmHg. Laboratory data reveals normal white count of 6.8, hemoglobin of 12.0, platelet count of 249, sodium 142, potassium is 2.6, repeat was 3.9, BUN is 23, creatinine is 1.27, troponin was negative 1, proBNP was 4730. Patient is on Eliquis for history of paroxysmal atrial fibrillation. Her lab work showed evidence of acute kidney injury. In the emergency department patient had a blood pressure as low as 73/53, currently improved and is up to 136/84, patient has been afebrile, she is on room air with a pulse ox of 94%, she is confused, she is somewhat lethargic, she knew she was in [place], she thought the year was 2022. She does not appear to be in any respiratory distress, breathing comfortably. Is satting 94% on room air, today's chest x-ray showing right lower lobe infiltrate related to pulmonary contusion, right thoracic rib deformity with displaced rib fractures and decreasing small left pleural effusion, and there was a suggestion to consider hemothorax in the differential. Patient's CBC is still pending, hemodynamically she has remained stable. Today's blood work has been reviewed, BNP was done only, renal function is improving. Then B1 is 22 and creatinine is down to 1.14, sodium is 143, potassium has been corrected and is currently at 4.0, chloride is 108, CO2 is 24. She was tested for: 19 which was negative. Urinalysis showed 1+ protein but no evidence of infection. Review of Systems All systems: negative Constitutional: Reports weakness, Denies chills, Denies fever Eyes: denies blurred vision, denies pain Ears, nose, mouth and throat: Denies headache, Denies sore throat Cardiovascular: Denies chest pain, Denies shortness of breath Respiratory: Denies cough Gastrointestinal: Denies abdominal pain, Denies diarrhea, Denies nausea, Denies vomiting Genitourinary: Denies dysuria, Denies hematuria Musculoskeletal: Denies myalgias Integumentary: Denies pruritus, Denies rash Neurological: Reports change in mentation, Reports confusion, Reports syncope, Denies numbness, Denies weakness Psychiatric: Denies anxiety, Denies depression Endocrine: Denies fatigue, Denies weight change Past Medical History Past Medical History: Coronary Artery Disease (CAD), Heart Failure, Dementia, Diabetes Mellitus, Hyperlipidemia, Hypertension, Myocardial Infarction (DC) Additional Past Medical History / Comment(s): hx ulcers, hx polyps, silent DC, heart valve issues aortic valve is the worse, bilateral lung pluarcy Last Myocardial Infarction Date:: 2009 History of Any Multi-Drug Resistant Organisms: None Reported Past Surgical History: Coronary Bypass/CABG, Heart Catheterization, Tubal Ligation Additional Past Surgical History / Comment(s): triple bypass, carlene carotid endarterectomy with mesh, valve repair, states no stents in heart, loop recorder removed in 2018, carlene cataracts Past Anesthesia/Blood Transfusion Reactions: No Reported Reaction Date of Last Stent Placement:: 2009 Type of Cardiac Device: Loop Device Placement Date:: 01/22 Past Psychological History: No Psychological Hx Reported Smoking Status: Unknown if ever smoked Past Alcohol Use History: None Reported Additional Past Alcohol Use History / Comment(s): quit smoking in 2009 smoked from teens Past Drug Use History: None Reported - Past Family History Mother Family Medical History: Cancer Additional Family Medical History / Comment(s): BREAST Medications and Allergies Home Medications Medication Instructions Recorded Confirmed Type Apixaban [Eliquis] 5 mg PO BID@08,199902/08/21 10/27/21 History Donepezil [Aricept] 10 mg PO HS@199902/08/21 10/27/21 History Memantine [Namenda] 10 mg PO BID@799,199902/08/21 10/27/21 History Amiodarone [Cordarone] 200 mg PO DAILY@0806/08/21 10/27/21 History Amoxicillin 2,000 mg PO ONCE PRN 06/08/21 10/27/21 History sitaGLIPtin PHOSPHATE [Januvia] 50 mg PO DAILY@79906/08/21 10/27/21 History Acetaminophen Tab [Tylenol Tab] 1,000 mg PO Q8H PRN 10/27/21 10/27/21 History Acetaminophen [Tylenol] 500 mg PO BID PRN 10/27/21 10/27/21 History Albuterol Inhaler [Ventolin Hfa 2 puff INHALATION RT-QID PRN 10/27/21 10/27/21 History Inhaler] Bacitracin Zinc Oint 1 applic TOPICAL DAILY@79910/27/21 10/27/21 History Bumetanide [Bumex] 1 mg PO BID-W/MEALS 10/27/21 10/27/21 History Carvedilol [Coreg] 12.5 mg PO BID@0800,1700 PRN 10/27/21 10/27/21 History Docusate [Colace] 100 mg PO BID PRN 10/27/21 10/27/21 History Escitalopram Oxalate [Lexapro] 10 mg PO DAILY@0800 10/27/21 10/27/21 History Levothyroxine Sodium [Synthroid] 25 mcg PO DAILY@0700 10/27/21 10/27/21 History Lisinopril [Prinivil] 10 mg PO DAILY@0800 10/27/21 10/27/21 History Meloxicam [Mobic] 7.5 mg PO DAILY PRN 10/27/21 10/27/21 History Metoprolol Succinate [Toprol XL] 25 mg PO BID@0800,199910/27/21 10/27/21 History Venlafaxine HCl [Effexor XR] 75 mg PO DAILY@0800 10/27/21 10/27/21 History polyethylene glycoL 3350 [Miralax] 17 gm PO DAILY PRN 10/27/21 10/27/21 History Allergies Allergy/AdvReac Type Severity Reaction Status Date / Time furosemide Allergy Unknown Unknown Verified 10/27/21 17:12 hydrocodone bitartrate Allergy Unknown Hallucinati Verified 10/27/21 17:12 [From Vicodin] ons pravastatin Allergy Unknown Itching, Verified 10/27/21 17:12 face swelling simvastatin Allergy Unknown Itching, Verified 10/27/21 17:12 face swelling Influenza Virus Vaccines Allergy Unknown Verified 10/27/21 17:12 rosuvastatin calcium Allergy fainting Verified 10/27/21 17:12 [From Crestor] Fgiuhkc-RUT-LcL Reductase Allergy itching, Verified 10/27/21 17:12 Inhibitor face [Vqyyaqb-Nts-Qul Reductase swelling Inhibitor] flu vaccine Allergy Unknown Uncoded 10/27/21 14:39 Physical Exam Vitals: Vital Signs Temp Pulse Pulse Resp BP BP Pulse Ox 10/29/21 14:47 97.8 F 106 H 16 136/84 94 L 10/29/21 07:07 20 10/29/21 07:00 97.4 F L 100 17 96/67 91 L 10/29/21 02:07 97.9 F 123 H 20 127/95 93 L 10/28/21 22:05 107 H 10/28/21 19:12 97.8 F 131 H 20 129/84 94 L Intake and Output 10/29/21 10/29/21 10/29/21 06:59 14:59 22:59 Intake Total 386 Balance 386 Intake: Intake, IV Titration 150 Amount Sodium Chloride 0.9% 1, 150 000 ml @ 75 mls/hr IV . [id number] [facility] Rx#:[id number] Oral 236 GENERAL EXAM: Somnolent, but arousable, confused 76-year-old white female, laying on the bed sideways, with repeat on the floor, and with a top half on the bed, she is able to provide some simple answers, she is confused, she is oriented to self, she knew she was employed [place], but she thought the year was 2022, denies any difficulty breathing, she is satting 94% on room air EYES: Normal reaction of pupils, equal size. Conjunctiva pink, sclera white. NOSE: Clear with pink turbinates. THROAT: No erythema or exudates. NECK: No masses, no JVD, no thyroid enlargement, no adenopathy. CHEST: No chest wall deformity. Symmetrical expansion. LUNGS: Equal air entry with no crackles, wheeze, rhonchi or dullness. CVS: Regular rate and rhythm, normal S1 and S2, no gallops, no murmurs, no rubs ABDOMEN: Soft, nontender. No hepatosplenomegaly, normal bowel sounds, no guarding or rigidity. EXTREMITIES: No clubbing, no edema, no cyanosis, 2+ pulses and upper and lower extremities. MUSCULOSKELETAL: Muscle strength and tone normal. SPINE: No scoliosis or deformity SKIN: No rashes CENTRAL NERVOUS SYSTEM: Confused, lethargic. No focal deficits, tone is normal in all 4 extremities. Results - Laboratory Findings CBC and BMP: 10/27/21 15:19 10/29/21 05:34 PT/INR, D-dimer PT 12.7 sec (9.0-12.0) H 10/27/21 15:19 INR 1.2 (<1.2) H 10/27/21 15:19 Abnormal lab findings: Abnormal Labs 10/27/21 10/27/21 10/28/21 15:19 15: 06:56 PT 12.7 H INR 1.2 H Potassium 2.6 L* Chloride Carbon Dioxide 33 H BUN 30 H Creatinine 1.45 H Glucose POC Glucose (mg/dL) 144 H Alkaline Phosphatase 277 H Albumin 3.4 L Urine Protein Urine Mucus 10/28/21 10/28/21 10/28/21 06:58 07:40 12:27 PT INR Potassium Chloride 108 H Carbon Dioxide BUN 23 H Creatinine 1.27 H Glucose 149 H POC Glucose (mg/dL) 123 H Alkaline Phosphatase Albumin Urine Protein 1+ H Urine Mucus Rare H 10/28/21 10/28/21 10/29/21 17:22 20:43 05:34 PT INR Potassium Chloride 108 H Carbon Dioxide BUN 22 H Creatinine 1.14 H Glucose 161 H POC Glucose (mg/dL) 126 H 164 H Alkaline Phosphatase Albumin Urine Protein Urine Mucus 10/29/21 10/29/21 07:54 11:01 PT INR Potassium Chloride Carbon Dioxide BUN Creatinine Glucose POC Glucose (mg/dL) 142 H 143 H Alkaline Phosphatase Albumin Urine Protein Urine Mucus - Diagnostic Findings Chest x-ray: report reviewed, image reviewed Assessment and Plan Plan: Assessment: #1. Right-sided rib fractures related to syncope and fall, no evidence of pneumothorax. Chest x-ray showed fractures of the posterior lateral eighth and ninth ribs, and possibility of pulmonary contusion. Follow-up chest x-ray today is showing increasing small left pleural fluid in addition to the previously mentioned findings and consideration of hemothorax was suggested in the differential by radiology but seems to be less likely based on her rib fractures being on the opposite side, there is a small fluid collection on the left side possibly chronic #2. Hypotension with syncopal episodes #3. Acute kidney injury related to ATN, hypotension, and possible diuretic therapy, improving with gentle hydration #4. Chronic A. fib on Eliquis #5. Altered mental status, and patient does have a underlying history of dementia, baseline mental status is unknown to us, exact etiology of altered mentation is unknown to us #6. Coronary artery disease and cardiac stenting and previous history of CABG #7. Diabetes mellitus type 2 #8. Hypertension #9. Hyperlipidemia #10. Previous history of myocardial infarction #11. Valvular heart disease and moderately severe pulmonary hypertension Plan: Chest x-ray has been reviewed Possibility of left-sided hemothorax is unlikely since her rib fractures on the opposite side on the right No respiratory distress, patient is on room air Encourage deep breathing and coughing, maintain aspiration precaution His chest x-ray findings worsen we'll consider CT chest without contrast We'll continue to follow her clinical course Maintain safety precautions I performed a history & physical examination of the patient and discussed their management with my nurse practitioner, Kayley Mcgee. I reviewed the nurse practitioner's note and agree with the documented findings and plan of care. Lung sounds are positive for dim breath sounds throughout the lung grewal. The findings and the impression was discussed with the patient. I attest to the documentation by the nurse practitioner. Time with Patient: Greater than 30
--- NOTE | 2021-10-29 16:59 | P.PN ---
Progress Note - Text Progress Note Date: 10/29/21 Chief Complaint: Low heart rate This is a 76-year-old patient who follows with visiting physicians Dr. Bonilla. Chronic stable medical conditions include CAD with history of bypass, CHF, dementia, diabetes, hypertension, hyperlipidemia. Patient is at [facility] home. Patient was sent in by her plant general manager Dr. Luo after the patient was found to have a low blood pressure and low heart rate. Patient had a syncopal episode yesterday that resulted to the plant general manager visit. Patient denied any dizziness or lightheadedness. It may be noted because of dementia patient is a poor historian. Blood pressure at the [facility] home was 88/53. Patient really cannot give much of history except for simple questions. Denies any shortness of breath or cough no fever no chills. Appetite is good. Admitted with hypotension, bradycardia from beta blockers acute kidney injury, acute kidney injury from decreased oral intake,. Patient is dose of beta blockers cutback. Mobic was held. Bumex interval held. IV fluids. October 28: Patient had all her breakfast. No lunch. Continue IV fluids. Heart rate controlled.. No chest pain. Breathing stable. Comfortable October 29: Some shortness of breath. IV fluids discontinued. 1 dose of IV Bumex given. Atrial fibrillation controlled. Decreased appetite. Review of systems: Was done for constitutional, cardiovascular, GI, pulmonary. relevant finding as above Active Medications Acetaminophen (Acetaminophen Tab 325 Mg Tab) 650 mg PO Q6HR PRN PRN Reason: Mild Pain or Fever > 100.5 Last Admin: 10/27/21 21:16 Dose: 650 mg Documented by: Albuterol Sulfate (Albuterol Nebulized 2.5 Mg/3 Ml) 2.5 mg INHALATION RT-QID PRN PRN Reason: Shortness Of Breath Amiodarone HCl (Amiodarone 200 Mg Tab) 200 mg PO DAILY@0800 [facility] Last Admin: 10/29/21 08:26 Dose: 200 mg Documented by: Bacitracin (Bacitracin Zinc 500 Unit/Gm Oint 28.4 Gm Tube) 1 applic TOPICAL DAILY@0800 [facility]; Protocol Last Admin: 10/29/21 13:59 Dose: Not Given Documented by: Bumetanide (Bumetanide 1 Mg Tab) 1 mg PO BID-W/MEALS [facility] Calcium Carbonate/Glycine (Calcium Carbonate 500 Mg Chewable) 1,000 mg PO Q4HR PRN PRN Reason: Dyspepsia Escitalopram Oxalate (Escitalopram 10 Mg Tab) 10 mg PO DAILY@0800 [facility] Last Admin: 10/29/21 08:26 Dose: 10 mg Documented by: Insulin Aspart (Insulin Aspart (Novolog) 100 Unit/Ml Vial) 0 unit SQ AC-TID [facility]; Protocol Last Admin: 10/29/21 14:00 Dose: Not Given Documented by: Lactulose (Lactulose 20 Gm/30 Ml Cup) 20 gm PO DAILY PRN PRN Reason: Constipation Levothyroxine Sodium (Levothyroxine 25 Mcg Tab) 25 mcg PO DAILY@0700 [facility] Last Admin: 10/29/21 08:26 Dose: 25 mcg Documented by: Linagliptin (Linagliptin 5 Mg Tablet) 5 mg PO DAILY@0800 [facility] Last Admin: 10/29/21 08:26 Dose: 5 mg Documented by: Lorazepam (Lorazepam 0.5 Mg Tab) 0.5 mg PO Q6HR PRN PRN Reason: Anxiety Last Admin: 10/28/21 19:32 Dose: 0.5 mg Documented by: Metoprolol Tartrate (Metoprolol Tartrate 12.5 Mg Tab) 12.5 mg PO TID [facility] Last Admin: 10/29/21 16:09 Dose: 12.5 mg Documented by: Naloxone HCl (Naloxone 0.4 Mg/Ml 1 Ml Vial) 0.2 mg IV Q2M PRN PRN Reason: Opioid Reversal Ondansetron HCl (Ondansetron 4 Mg/2 Ml Vial) 4 mg IVP Q8HR PRN PRN Reason: Nausea And Vomiting Spironolactone (Spironolactone 25 Mg Tab) 25 mg PO DAILY [facility] Last Admin: 10/29/21 08:25 Dose: 25 mg Documented by: Temazepam (Temazepam 15 Mg Cap) 15 mg PO HS PRN PRN Reason: Insomnia Last Admin: 10/28/21 19:32 Dose: 15 mg Documented by: Venlafaxine HCl (Venlafaxine Hcl Er 75 Mg Cap) 75 mg PO DAILY@0800 [facility] Last Admin: 10/29/21 08:26 Dose: 75 mg Documented by: Past medical history to include: CAD with bypass, CHF, dementia, diabetes, hypertension, hyperlipidemia, ulcers, Social history: Lives at [facility]. Patient smoked for about 50 years stopped in 2009. No alcohol reported. Family history: Breast cancer Physical examination: VITAL SIGNS: 97.4, 100, 17, 136/84, 91% room air GENERAL: sitting up, awake, comfortable. EYES: Pupils equal. Conjunctiva normal. HEENT: External appearance of nose and ears normal, oral cavity grossly normal. NECK: JVD raised; masses not palpable. HEART: Heart sounds irregular; no edema. LUNGS: Respiratory rate normal; decreased breath sounds. ABDOMEN: Soft, nontender, liver spleen not palpable, no masses palpable. PSYCH: Patient does not know where she is. She thinks his 1944. Does not know why she is here. MUSCULOSKELETAL:No Clubbing/cyanosis;muscles-grossly intact. Evidence of OA INVESTIGATIONS, reviewed in the clinical context: Chest x-ray film: Right lower lobe infiltrate can be compatible pulmonary contusion. Rib deformity. October 28: Sodium 142 potassium 3.9 BUN 23 creatinine 1.27 2-D echocardiogram: EF 25-30% moderate aortic stenosis. Moderate MR. Moderate TR. Moderate pulmonary hypertension. Moderate HI White count 6.8 hemoglobin 12 platelets 249 sodium 140 potassium 2.6 BUN 30 creatinine 1.45 Troponin I 0.017 Coronavirus [PCR]: Not detected EKG tracing personally reviewed by me-atrial fibrillation. ST segment depression in leads V4 to V6 possibly one aVF. Chest x-ray film personally reviewed by [id number] rib fractures. Possible atelectasis. Previous labs: Creatinine 0.72 on February 2021 Assessment and plan: -Patient is found to be hypotensive and bradycardic outpatient. Currently the heart rate is up. Telemetry. -Bradycardia reported. Note patient's both on Toprol-XL and Coreg. Corrected Beta ruben dose cut back. -Persistent atrial fibrillation. Rate controlled. Telemetry. Lopressor 12.5 by mouth 3 times a day -Acute kidney injury the patient's creatinine being 0.72, February 2021. Gentle hydration given the history of CHF. -Hypotension, possibly from kidney injury: Slow to respond IV fluids -Moderate mitral regurgitation, moderate tricuspid regurgitation, moderate pulmonary regurgitation Follow clinically -Secondary pulmonary hypertension due to CHF Follow clinically -Major cognitive impairment from late onset Alzheimer's dementia -Essential hypertension Coreg. Toprol-XL., Prinivil.- 3 were held. Currently Lopressor 12.5 by mouth tid -Possible right pulmonary contusion, secondary to fall/trauma Incentive spirometry. -Acute on Chronic congestive heart failure from systolic dysfunction EF 25-30 % IV Bumex 0.25 mg 1 dose now. By mouth Bumex per cardiology -Diabetes mellitus type 2, oral hypoglycemic Follow Accu-Cheks. Januvia 50 mg a day Lopressor increased to 12.5 by mouth 3 times a day. 1 dose of IV Bumex 0.25 mg. Oral Bumex added. Follow renal function closely.
[2021-10-29 17:07] LABS: Glucose,Whole Blood 140 mg/dL (75-99)
[2021-10-29] MEDS: BUMETANIDE 1 MG TAB PO SCH (17:35)
[2021-10-29] MEDS ORDERED: APIXABAN 5 MG TAB PO SCH (21:00)
[2021-10-30] MEDS: METOPROLOL TARTRATE 12.5 MG TAB PO SCH ×2 (02:09→08:01)
[2021-10-30 07:11] LABS: Glucose,Whole Blood 144 mg/dL (75-99)
[2021-10-30 08:01] LABS: African American GFR (CKD) 42 (>60 ml/min/1.73 sqM); Anion Gap 10 mmol/L; Blood Urea Nitrogen 31 mg/dL (7-17); Calcium 9.4 mg/dL (8.4-10.2); Carbon Dioxide 25 mmol/L (22-30); Chloride 109 mmol/L (98-107); Glucose 155 mg/dL (74-99); Non-African American GFR(CKD) 36 (>60 ml/min/1.73 sqM); Potassium 4.3 mmol/L (3.5-5.1); Sodium 144 mmol/L (137-145)
[2021-10-30] MEDS: INSULIN ASPART (NovoLOG) 100 UNIT/ML VIAL SQ SCH ×3 (08:01→17:30)
[2021-10-30] MEDS: LINAGLIPTIN 5 MG TABLET PO SCH (08:01)
[2021-10-30] MEDS: BUMETANIDE 1 MG TAB PO SCH (08:02)
[2021-10-30] MEDS: BACITRACIN ZINC 500 UNIT/GM OINT 28.4 GM TUBE TOPICAL SCH (08:02)
[2021-10-30] MEDS: VENLAFAXINE HCL ER 75 MG CAP PO SCH (08:02)
[2021-10-30] MEDS: ESCITALOPRAM 10 MG TAB PO SCH (08:02)
[2021-10-30] MEDS: AMIODARONE 200 MG TAB PO SCH (08:02)
[2021-10-30] MEDS: LEVOTHYROXINE 25 MCG TAB PO SCH (08:02)
--- NOTE | 2021-10-30 08:06 | XR ---
EXAMINATION TYPE: XR chest 1V portable DATE OF EXAM: 10/30/2021 CLINICAL HISTORY: Difficulty breathing and effusion progress study. TECHNIQUE: Single AP portable frontal view of the chest is obtained. COMPARISON: Chest x-ray from one day earlier and older studies. FINDINGS: Overlying sternal wires and mediastinal clips are redemonstrated. Osseous structures are d emineralized. Deformity lateral right mid to lower rib again seen. Persistent cardiomegaly with ather osclerotic thoracic aorta and left basilar opacity. Underlying chronic emphysematous changes are pres ent. IMPRESSION: Cardiomegaly with small left pleural effusion and left basilar acute infiltrate and/or at electasis redemonstrated. No significant change from one day earlier.
[2021-10-30] MEDS: SPIRONOLACTONE 25 MG TAB PO SCH (08:08)
[2021-10-30 08:45] LABS: HCT 41.8 % (34.0-46.0); HGB 12.8 gm/dL (11.4-16.0); Hypochromasia Moderate; MCH 28.8 pg (25.0-35.0); MCHC 30.6 g/dL (31.0-37.0); Mean Platelet Volume 9.2; Platelet Count 264 k/uL (150-450); RBC 4.44 m/uL (3.80-5.40); RDW 14.2 % (11.5-15.5); WBC 9.5 k/uL (3.8-10.6)
--- NOTE | 2021-10-30 10:45 | P.GSCN ---
History of Present Illness Consult date: 10/30/21 Reason for Consult: Possible hemothorax Requesting physician: Tabitha Knutson History of present illness: This is a 76-year-old confused lady who lives in assisted living with Dr. Bonilla listed as her primary care physician. She has a previous medical history of dementia, multiple falls, paroxysmal atrial fibrillation on Eliquis for anticoagulation, aortic stenosis, hypertension, hyperlipidemia, type 2 diabetes, coronary artery disease with myocardial infarction and previous CABG, carotid artery disease with previous bilateral carotid endarterectomy, and previous tobacco dependence. She presented to [facility] emergency room at the request of Dr. Luo for evaluation regarding syncopal episodes and bradycardia for potential pacemaker insertion. In the ER a chest x-ray was completed demonstrating right-sided rib fractures with pulmonary contusion. She was admitted for evaluation and treatment with consultation placed to trauma surgery due to fall with subsequent rib fractures. Subsequent chest x-ray was read as having increasing small left pleural effusion, consider hemothorax. Due to this reason consultation was placed to pulmonology and cardiothoracic surgery for treatment recommendations. Review of Systems Review of systems was completed and was negative except as noted - Cardiovascular Reports chest pain - Respiratory Reports dyspnea Past Medical History Past Medical History: Coronary Artery Disease (CAD), Heart Failure, Dementia, Diabetes Mellitus, Hyperlipidemia, Hypertension, Myocardial Infarction (TN) Additional Past Medical History / Comment(s): hx ulcers, hx polyps, silent TN, heart valve issues aortic valve is the worse, bilateral lung pluarcy Last Myocardial Infarction Date:: 2009 History of Any Multi-Drug Resistant Organisms: None Reported Past Surgical History: Coronary Bypass/CABG, Heart Catheterization, Tubal Ligation Additional Past Surgical History / Comment(s): triple bypass, carlene carotid endarterectomy with mesh, valve repair, states no stents in heart, loop recorder removed in 2018, carlene cataracts Past Anesthesia/Blood Transfusion Reactions: No Reported Reaction Date of Last Stent Placement:: 2009 Type of Cardiac Device: Loop Device Placement Date:: 01/22 Past Psychological History: No Psychological Hx Reported Smoking Status: Unknown if ever smoked Past Alcohol Use History: None Reported Additional Past Alcohol Use History / Comment(s): quit smoking in 2009 smoked from teens Past Drug Use History: None Reported - Past Family History Mother Family Medical History: Cancer Additional Family Medical History / Comment(s): BREAST Medications and Allergies Home Medications Medication Instructions Recorded Confirmed Type Apixaban [Eliquis] 5 mg PO BID@08,199902/08/21 10/27/21 History Donepezil [Aricept] 10 mg PO HS@199902/08/21 10/27/21 History Memantine [Namenda] 10 mg PO BID@08,199902/08/21 10/27/21 History Amiodarone [Cordarone] 200 mg PO DAILY@0806/08/21 10/27/21 History Amoxicillin 2,000 mg PO ONCE PRN 06/08/21 10/27/21 History sitaGLIPtin PHOSPHATE [Januvia] 50 mg PO DAILY@79906/08/21 10/27/21 History Acetaminophen Tab [Tylenol Tab] 1,000 mg PO Q8H PRN 10/27/21 10/27/21 History Acetaminophen [Tylenol] 500 mg PO BID PRN 10/27/21 10/27/21 History Albuterol Inhaler [Ventolin Hfa 2 puff INHALATION RT-QID PRN 10/27/21 10/27/21 History Inhaler] Bacitracin Zinc Oint 1 applic TOPICAL DAILY@0810/27/21 10/27/21 History Bumetanide [Bumex] 1 mg PO BID-W/MEALS 10/27/21 10/27/21 History Carvedilol [Coreg] 12.5 mg PO BID@0800,1700 PRN 10/27/21 10/27/21 History Docusate [Colace] 100 mg PO BID PRN 10/27/21 10/27/21 History Escitalopram Oxalate [Lexapro] 10 mg PO DAILY@0810/27/21 10/27/21 History Levothyroxine Sodium [Synthroid] 25 mcg PO DAILY@0700 10/27/21 10/27/21 History Lisinopril [Prinivil] 10 mg PO DAILY@0810/27/21 10/27/21 History Meloxicam [Mobic] 7.5 mg PO DAILY PRN 10/27/21 10/27/21 History Metoprolol Succinate [Toprol XL] 25 mg PO BID@08,199910/27/21 10/27/21 History Venlafaxine HCl [Effexor XR] 75 mg PO DAILY@0800 10/27/21 10/27/21 History polyethylene glycoL 3350 [Miralax] 17 gm PO DAILY PRN 10/27/21 10/27/21 History Allergies Allergy/AdvReac Type Severity Reaction Status Date / Time furosemide Allergy Unknown Unknown Verified 10/27/21 17:12 hydrocodone bitartrate Allergy Unknown Hallucinati Verified 10/27/21 17:12 [From Vicodin] ons pravastatin Allergy Unknown Itching, Verified 10/27/21 17:12 face swelling simvastatin Allergy Unknown Itching, Verified 10/27/21 17:12 face swelling Influenza Virus Vaccines Allergy Unknown Verified 10/27/21 17:12 rosuvastatin calcium Allergy fainting Verified 10/27/21 17:12 [From Crestor] Lcshvkj-TBS-WhR Reductase Allergy itching, Verified 10/27/21 17:12 Inhibitor face [Mijgvfd-Tfu-Nbp Reductase swelling Inhibitor] flu vaccine Allergy Unknown Uncoded 10/27/21 14:39 Surgical - Exam Vital Signs Temp Pulse Resp BP Pulse Ox 97.4 F L 79 18 103/59 96 10/27/21 14:33 10/27/21 14:33 10/27/21 14:33 10/27/21 14:33 10/27/21 14:33 CONSTITUTIONAL: Awake and alert, appears comfortable, cooperative, well- developed, well-nourished, no pain, no acute distress EYES: Pupils equal, round, reactive to light, normal ocular movement ENT: Moist mucous membranes without oral lesions present NECK: No masses, no bruits, trachea midline RESPIRATORY: Lungs sounds clear to auscultation bilaterally. Respirations even, nonlabored. Currently on room air with oxygen saturation 94%. Strong cough. CARDIOVASCULAR: S1, S2 present. Irregular rate and rhythm. Palpable peripheral pulses bilaterally. No edema present. GASTROINTESTINAL: Abdomen soft, nontender, nondistended without masses or organomegaly noted. There is no rebound or guarding present. Active bowel sounds present 4 quadrants. GENITOURINARY: Deferred INTEGUMENTARY: Skin is warm and dry with evidence of good perfusion. NEUROLOGIC: Cranial nerves II through XII intact MUSKULOSKELETAL: Able to move all extremities, strength equal bilaterally, normal posture PSYCHIATRIC: Alert and oriented to person, place, thinks it is 2002 Results - Labs 10/30/21 07:10 10/30/21 07:10 Abnormal Lab Results - Last 24 Hours (Table) 10/29/21 10/29/21 10/30/21 Range/Units 11:01 17:04 07:10 MCHC (31.0-37.0) g/dL Chloride 109 H (98-107) mmol/L BUN 31 H (7-17) mg/dL Creatinine 1.39 H (0.52-1.04) mg/dL Glucose 155 H (74-99) mg/dL POC Glucose (mg/dL) 143 H 140 H (75-99) mg/dL 10/30/21 10/30/21 Range/Units 07:10 07:10 MCHC 30.6 L (31.0-37.0) g/dL Chloride (98-107) mmol/L BUN (7-17) mg/dL Creatinine (0.52-1.04) mg/dL Glucose (74-99) mg/dL POC Glucose (mg/dL) 144 H (75-99) mg/dL Diabetes panel 10/30/21 Range/Units 07:10 Sodium 144 (137-145) mmol/L Potassium 4.3 (3.5-5.1) mmol/L Chloride 109 H (98-107) mmol/L Carbon Dioxide 25 (22-30) mmol/L BUN 31 H (7-17) mg/dL Creatinine 1.39 H (0.52-1.04) mg/dL Glucose 155 H (74-99) mg/dL Calcium 9.4 (8.4-10.2) mg/dL Calcium panel 10/30/21 Range/Units 07:10 Calcium 9.4 (8.4-10.2) mg/dL Pituitary panel 10/30/21 Range/Units 07:10 Sodium 144 (137-145) mmol/L Potassium 4.3 (3.5-5.1) mmol/L Chloride 109 H (98-107) mmol/L Carbon Dioxide 25 (22-30) mmol/L BUN 31 H (7-17) mg/dL Creatinine 1.39 H (0.52-1.04) mg/dL Glucose 155 H (74-99) mg/dL Calcium 9.4 (8.4-10.2) mg/dL Adrenal panel 10/30/21 Range/Units 07:10 Sodium 144 (137-145) mmol/L Potassium 4.3 (3.5-5.1) mmol/L Chloride 109 H (98-107) mmol/L Carbon Dioxide 25 (22-30) mmol/L BUN 31 H (7-17) mg/dL Creatinine 1.39 H (0.52-1.04) mg/dL Glucose 155 H (74-99) mg/dL Calcium 9.4 (8.4-10.2) mg/dL - Imaging Chest x-ray: report reviewed, image reviewed Assessment and Plan Assessment: 1. Right-sided rib fractures with contusion, status post fall from standing 2. Pain secondary to above 3. History of dementia 4. Multiple falls 5. Paroxysmal atrial fibrillation on Eliquis for anticoagulation 6. Aortic stenosis 7. Hypertension 8. Hyperlipidemia 9. Type 2 diabetes 10. Coronary artery disease with myocardial infarction and previous CABG 11. Carotid artery disease with previous bilateral carotid endarterectomy 12. Previous tobacco dependence Plan: The patient was seen and examined at the bedside. Chart/diagnostics were reviewed. The case was discussed in detail with Dr. Meyer. No surgical intervention is warranted at this time. Recommend pain control. Increase activity as tolerated. Medical management of other comorbidities per primary care service. We will sign off the case. Please call us with any further questions. Thank you for this consult Time with Patient: Greater than 30
[2021-10-30] MEDS ORDERED: METOPROLOL TARTRATE 12.5 MG TAB PO STA (11:21)
[2021-10-30 11:29] LABS: Glucose,Whole Blood 131 mg/dL (75-99)
[2021-10-30] MEDS ORDERED: SODIUM CHLORIDE 0.9% 1,000 ML IV SCH (11:30)
--- NOTE | 2021-10-30 13:11 | P.PN ---
Subjective Progress Note Date: 10/30/21 This is a 76-year-old female patient with past medical history of dementia, hypertension, hyperlipidemia, diabetes mellitus type 2, coronary artery disease with history of bypass grafting who resides at an assisted living facility. On 10/27/2021 patient was taken to see her record tabulating clerk Dr. Luo for evaluation of hypotension with syncope and irregular heartbeat. Patient is a poor historian, in addition patient had fallen the day before at the assisted living home. Patient could not recall if there was loss of consciousness before or after the fall, no reported head trauma. Patient was complaining of right-sided back pain since the fall. No complaint of chest pain, no shortness of breath, no fatigue weakness, no fever, no known coronary exposure. Her daughters reported to the nursing staff that the patient has been experiencing syncopal episodes intermittently for 2 years. Blood pressure at the [facility] home was 88/50. Dr. Luo sent the patient in to the ER for evaluation for potential pacemaker insertion. EKG in the emergency department showed atrial fibrillation with PVCs and the rate of 86 BPM, ST segment depression and T-wave inversion in the inferior lateral leads. Chest x-ray showed a right-sided rib fractures, infiltrate at the right base correlate for pulmonary contusion, atelectasis and pneumonia or being considered but pneumonia seems to be less likely, there was a small left-sided pleural effusion. Echocardiogram showed mild concentric LVH, severely impaired LV function with EF of 25-30%, moderate aortic stenosis with peak/mean gradient across the aortic valve of 38.8 mmHg/18.9 mmHg, moderate mitral regurgitation and moderate tricuspid regurgitation, and moderately severe pulmonary hypertension with right-sided pressure of 48.3 mmHg. Laboratory data reveals normal white count of 6.8, hemoglobin of 12.0, platelet count of 249, sodium 142, potassium is 2.6, repeat was 3.9, BUN is 23, creatinine is 1.27, troponin was negative 1, proBNP was 4730. Patient is on Eliquis for history of paroxysmal atrial fibrillation. Her lab work showed evidence of acute kidney injury. In the emergency department patient had a blood pressure as low as 73/53, currently improved and is up to 136/84, patient has been afebrile, she is on room air with a pulse ox of 94%, she is confused, she is somewhat lethargic, she knew she was in [place], she thought the year was 2022. She does not appear to be in any respiratory distress, breathing comfortably. Is satting 94% on room air, today's chest x-ray showing right lower lobe infiltrate related to pulmonary contusion, right thoracic rib deformity with displaced rib fractures and decreasing small left pleural effusion, and there was a suggestion to consider hemothorax in the differential. Patient's CBC is still pending, hemodynamically she has remained stable. Today's blood work has been reviewed, BNP was done only, renal function is improving. Then B1 is 22 and creatinine is down to 1.14, sodium is 143, potassium has been corrected and is currently at 4.0, chloride is 108, CO2 is 24. She was tested for: 19 which was negative. Urinalysis showed 1+ protein but no evidence of infection. The patient is seen today 10/30/2021 in follow-up on the regular medical floor. She is currently resting comfortably in bed. Awake and alert in no acute distress. She is maintaining O2 saturations in the 90s on room air. Somewhat confused to time and place. White count 9.5. Hemoglobin 12.8. Sodium 144. Potassium 4.3. Creatinine 1.39. Glucose 155. TSH 26.0. She is continued on albuterol 4 times a day. Follow-up chest x-ray reveals cardiomegaly with small left pleural effusion and left basilar acute infiltrate/atelectasis redemonstrated. Deformity of the lateral right mid to lower seen again today. Underlying chronic emphysema. No significant change. Objective - Vital Signs Vital signs: Vital Signs Temp 98.6 F 10/30/21 07:28 Pulse 130 H 10/30/21 07:28 Resp 17 10/30/21 07:28 BP 137/82 10/30/21 07:28 Pulse Ox 94 L 10/30/21 07:28 Intake & Output 10/29/21 10/30/21 10/30/21 18:59 06:59 18:59 Intake Total 504 Balance 504 Intake: Intake, IV Titration 150 Amount Sodium Chloride 0.9% 1, 150 000 ml @ 75 mls/hr IV . [id number] [facility] Rx#:[id number] Oral 354 Other: Voiding Method Diaper Incontinent # Voids 2 - Exam GENERAL EXAM: Awake, alert, confused 76-year-old female, laying on the bed, she is able to provide some simple answers, she is confused, she is oriented to self, denies any difficulty breathing, she is satting 94% on room air EYES: Normal reaction of pupils, equal size. Conjunctiva pink, sclera white. NOSE: Clear with pink turbinates. THROAT: No erythema or exudates. NECK: No masses, no JVD, no thyroid enlargement, no adenopathy. CHEST: No chest wall deformity. Symmetrical expansion. LUNGS: Equal air entry with faint crackles in left base. CVS: Regular rate and rhythm, normal S1 and S2, no gallops, no murmurs, no rubs ABDOMEN: Soft, nontender. No hepatosplenomegaly, normal bowel sounds, no guarding or rigidity. EXTREMITIES: No clubbing, no edema, no cyanosis, 2+ pulses and upper and lower extremities. MUSCULOSKELETAL: Muscle strength and tone normal. SPINE: No scoliosis or deformity SKIN: No rashes CENTRAL NERVOUS SYSTEM: Confused, lethargic. No focal deficits, tone is normal in all 4 extremities. - Labs CBC & Chem 7: 10/30/21 07:10 10/30/21 07:10 Labs: Abnormal Lab Results - Last 24 Hours (Table) 10/29/21 10/30/21 10/30/21 Range/Units 17:04 07:10 07:10 MCHC (31.0-37.0) g/dL Chloride 109 H (98-107) mmol/L BUN 31 H (7-17) mg/dL Creatinine 1.39 H (0.52-1.04) mg/dL Glucose 155 H (74-99) mg/dL POC Glucose (mg/dL) 140 H 144 H (75-99) mg/dL TSH (0.465-4.680) mIU/L 10/30/21 10/30/21 10/30/21 Range/Units 07:10 07:10 11:28 MCHC 30.6 L (31.0-37.0) g/dL Chloride (98-107) mmol/L BUN (7-17) mg/dL Creatinine (0.52-1.04) mg/dL Glucose (74-99) mg/dL POC Glucose (mg/dL) 131 H (75-99) mg/dL TSH 26.000 H (0.465-4.680) mIU/L Assessment and Plan Assessment: 1 Right-sided rib fractures related to syncope and fall, no evidence of pneumothorax. Chest x-ray showed fractures of the posterior lateral eighth and ninth ribs, and possibility of pulmonary contusion. Follow-up chest x-ray today is showing increasing small left pleural fluid in addition to the previously mentioned findings and consideration of hemothorax was suggested in the differential by radiology but seems to be less likely based on her rib fractures being on the opposite side, there is a small fluid collection on the left side possibly chronic 2 Hypotension with syncopal episodes 3 Acute kidney injury related to ATN, hypotension, and possible diuretic therapy, improving with gentle hydration 4 Chronic A. fib on Eliquis 5 Altered mental status, and patient does have a underlying history of dementia, baseline mental status is unknown to us, exact etiology of altered mentation is unknown to us 6 Coronary artery disease and cardiac stenting and previous history of CABG 7 Diabetes mellitus type 2 8 Hypertension 9 Hyperlipidemia 10 Previous history of myocardial infarction 11 Valvular heart disease and moderately severe pulmonary hypertension Plan: The patient was seen and evaluated Chest x-ray and labs reviewed No respiratory distress, patient is on room air Encouraged cough and deep breathing exercises, maintain aspiration precautions Plan is to return to [facility] with care / Stable for discharge from the pulmonary standpoint We will see as needed I, the cosigning physician, performed a history & physical examination of the patient. Lungs sounds with faint crackles in the left base. Maintaining good O2 saturations in the 90s on room air. I discussed the assessment and plan of care with my nurse practitioner, Judith Michel. I attest to the above note as dictated by her.
[2021-10-30 14:40] LABS: T4, Free (Free Thyroxine) 1.84 ng/dL (0.78-2.19)
--- NOTE | 2021-10-30 15:30 | P.PN ---
Subjective Progress Note Date: 10/30/21 CHIEF COMPLAINT: Fall with possible syncope HISTORY OF PRESENT ILLNESS: Patient lying in bed comfortably. She is complaining of right-sided rib pain and neck pain today. Denies any shortness of breath. She is on room air satting at 93%. She has been tachycardic. Afebrile. Patient was seen by pulmonary service and cardiothoracic service. No further workup recommended. They have both signed off the case. Repeat chest x-ray for today shows Hermelindo regularly with small left pleural effusion and left basilar acute infiltrate and/or atelectasis read demonstrated. No significant change from 1 day prior. Per pulmonary see service hemothorax likely and it is on the opposite side of her rib fractures. PHYSICAL EXAM: VITAL SIGNS: Reviewed. GENERAL: Well-developed in no acute distress. HEENT: No sclera icterus. Extraocular movements grossly intact. Moist buccal mucosa. Head is atraumatic, normocephalic. ABDOMEN: Soft. Nondistended. Nontender. NEUROLOGIC: Alert and oriented 2 with confusion ASSESSMENT: 1. Fall 2. Right rib fractures of the eighth and ninth rib 3. Possible syncopal episode 4. Hypotension 5. Acute kidney injury 6. Hypokalemia improved 7. Possible pulmonary contusion PLAN: -Patient can be discharged from trauma surgical standpoint when medically cleare d -Patient Eliquis can be resumed -Continue supportive care -Continue incentive spirometer -Encourage patient to increase activity level -Continue to monitor oxygen saturation -Consult physical therapy -Continue Tylenol as needed for pain Physician Medical Technologist Prn note has been reviewed by physician. Signing provider agrees with the documented findings, assessment, and plan of care. Objective - Vital Signs Vital signs: Vital Signs Temp 98.6 F 10/30/21 14:00 Pulse 100 10/30/21 14:00 Resp 17 10/30/21 14:00 BP 127/69 10/30/21 14:00 Pulse Ox 93 L 10/30/21 14:00 Intake & Output 10/29/21 10/30/21 10/30/21 18:59 06:59 18:59 Intake Total 504 Balance 504 Intake: Intake, IV Titration 150 Amount Sodium Chloride 0.9% 1, 150 000 ml @ 75 mls/hr IV . [id number] [facility] Rx#:[id number] Oral 354 Other: Voiding Method Diaper Incontinent # Voids 2 - Labs CBC & Chem 7: 10/30/21 07:10 10/30/21 07:10 Labs: Abnormal Lab Results - Last 24 Hours (Table) 10/29/21 10/30/21 10/30/21 Range/Units 17:04 07:10 07:10 MCHC (31.0-37.0) g/dL Chloride 109 H (98-107) mmol/L BUN 31 H (7-17) mg/dL Creatinine 1.39 H (0.52-1.04) mg/dL Glucose 155 H (74-99) mg/dL POC Glucose (mg/dL) 140 H 144 H (75-99) mg/dL TSH (0.465-4.680) mIU/L 10/30/21 10/30/21 10/30/21 Range/Units 07:10 07:10 11:28 MCHC 30.6 L (31.0-37.0) g/dL Chloride (98-107) mmol/L BUN (7-17) mg/dL Creatinine (0.52-1.04) mg/dL Glucose (74-99) mg/dL POC Glucose (mg/dL) 131 H (75-99) mg/dL TSH 26.000 H (0.465-4.680) mIU/L
[2021-10-30 17:27] LABS: Glucose,Whole Blood 123 mg/dL (75-99)
--- NOTE | 2021-10-30 18:58 | P.PN ---
Progress Note - Text Progress Note Date: 10/30/21 Chief Complaint: Low heart rate This is a 76-year-old patient who follows with visiting physicians Dr. Bonilla. Chronic stable medical conditions include CAD with history of bypass, CHF, dementia, diabetes, hypertension, hyperlipidemia. Patient is at [facility] home. Patient was sent in by her pharmacist intern Dr. Luo after the patient was found to have a low blood pressure and low heart rate. Patient had a syncopal episode yesterday that resulted to the pharmacist intern visit. Patient denied any dizziness or lightheadedness. It may be noted because of dementia patient is a poor historian. Blood pressure at the [facility] home was 88/53. Patient really cannot give much of history except for simple questions. Denies any shortness of breath or cough no fever no chills. Appetite is good. Admitted with hypotension, bradycardia from beta blockers acute kidney injury, acute kidney injury from decreased oral intake,. Patient is dose of beta blockers cutback. Mobic was held. Bumex interval held. IV fluids. October 28: Patient had all her breakfast. No lunch. Continue IV fluids. Heart rate controlled.. No chest pain. Breathing stable. Comfortable October 29: Some shortness of breath. IV fluids discontinued. 1 dose of IV Bumex given. Atrial fibrillation controlled. Decreased appetite. October 30: Patient is barely eating. Atrial fibrillation up to 120s. Increase Lopressor 20 mg twice a day. Cutback Bumex 0.5 mg twice a day. We'll gently hydrate the patient a few hours. Baseline dementia. Review of systems: Was done for constitutional, cardiovascular, GI, pulmonary. relevant finding as above Active Medications Acetaminophen (Acetaminophen Tab 325 Mg Tab) 650 mg PO Q6HR PRN PRN Reason: Mild Pain or Fever > 100.5 Last Admin: 10/27/21 21:16 Dose: 650 mg Documented by: Albuterol Sulfate (Albuterol Nebulized 2.5 Mg/3 Ml) 2.5 mg INHALATION RT-QID PRN PRN Reason: Shortness Of Breath Amiodarone HCl (Amiodarone 200 Mg Tab) 200 mg PO DAILY@0800 [facility] Last Admin: 10/30/21 08:02 Dose: 200 mg Documented by: Bacitracin (Bacitracin Zinc 500 Unit/Gm Oint 28.4 Gm Tube) 1 applic TOPICAL DAILY@0800 [facility]; Protocol Last Admin: 10/30/21 08:02 Dose: Not Given Documented by: Bumetanide (Bumetanide 0.5 Mg Tablet) 0.5 mg PO BID [facility] Calcium Carbonate/Glycine (Calcium Carbonate 500 Mg Chewable) 1,000 mg PO Q4HR PRN PRN Reason: Dyspepsia Escitalopram Oxalate (Escitalopram 10 Mg Tab) 10 mg PO DAILY@0800 [facility] Last Admin: 10/30/21 08:02 Dose: 10 mg Documented by: Insulin Aspart (Insulin Aspart (Novolog) 100 Unit/Ml Vial) 0 unit SQ AC-TID [facility]; Protocol Last Admin: 10/30/21 17:30 Dose: Not Given Documented by: Lactulose (Lactulose 20 Gm/30 Ml Cup) 20 gm PO DAILY PRN PRN Reason: Constipation Levothyroxine Sodium (Levothyroxine 25 Mcg Tab) 25 mcg PO DAILY@0700 [facility] Last Admin: 10/30/21 08:02 Dose: 25 mcg Documented by: Linagliptin (Linagliptin 5 Mg Tablet) 5 mg PO DAILY@0800 [facility] Last Admin: 10/30/21 08:01 Dose: 5 mg Documented by: Lorazepam (Lorazepam 0.5 Mg Tab) 0.5 mg PO Q6HR PRN PRN Reason: Anxiety Last Admin: 10/28/21 19:32 Dose: 0.5 mg Documented by: Metoprolol Tartrate (Metoprolol Tartrate 25 Mg Tab) 25 mg PO BID [facility] Naloxone HCl (Naloxone 0.4 Mg/Ml 1 Ml Vial) 0.2 mg IV Q2M PRN PRN Reason: Opioid Reversal Ondansetron HCl (Ondansetron 4 Mg/2 Ml Vial) 4 mg IVP Q8HR PRN PRN Reason: Nausea And Vomiting Spironolactone (Spironolactone 25 Mg Tab) 25 mg PO DAILY [facility] Last Admin: 10/30/21 08:08 Dose: 25 mg Documented by: Temazepam (Temazepam 15 Mg Cap) 15 mg PO HS PRN PRN Reason: Insomnia Last Admin: 10/28/21 19:32 Dose: 15 mg Documented by: Venlafaxine HCl (Venlafaxine Hcl Er 75 Mg Cap) 75 mg PO DAILY@0800 [facility] Last Admin: 10/30/21 08:02 Dose: 75 mg Documented by: Past medical history to include: CAD with bypass, CHF, dementia, diabetes, hypertension, hyperlipidemia, ulcers, Social history: Lives at [facility]. Patient smoked for about 50 years stopped in 2009. No alcohol reported. Family history: Breast cancer Physical examination: VITAL SIGNS: 98.6, 1:30, 17, 1 3792, 94% room air GENERAL: sitting up, awake, comfortable. EYES: Pupils equal. Conjunctiva normal. HEENT: External appearance of nose and ears normal, oral cavity grossly normal. NECK: JVD raised; masses not palpable. HEART: Heart sounds irregular; no edema. LUNGS: Respiratory rate normal; decreased breath sounds. ABDOMEN: Soft, nontender, liver spleen not palpable, no masses palpable. PSYCH: Patient does not know where she is. She thinks his 1944. Does not know why she is here. MUSCULOSKELETAL:No Clubbing/cyanosis;muscles-grossly intact. Evidence of OA INVESTIGATIONS, reviewed in the clinical context: October 30: White count 9.5 hemoglobin 12.8 potassium 4.3 BUN 31 creatine 1.39 Chest x-ray film: Right lower lobe infiltrate can be compatible pulmonary contusion. Rib deformity. October 28: Sodium 142 potassium 3.9 BUN 23 creatinine 1.27 2-D echocardiogram: EF 25-30% moderate aortic stenosis. Moderate MR. Moderate TR. Moderate pulmonary hypertension. Moderate [place] White count 6.8 hemoglobin 12 platelets 249 sodium 140 potassium 2.6 BUN 30 creatinine 1.45 Troponin I 0.017 Coronavirus [PCR]: Not detected EKG tracing personally reviewed by me-atrial fibrillation. ST segment depression in leads V4 to V6 possibly one aVF. Chest x-ray film personally reviewed by [id number]-[id number] rib fractures. Possible atelectasis. Previous labs: Creatinine 0.72 on February 2021 Assessment and plan: -Patient is found to be hypotensive and bradycardic outpatient. Currently the heart rate is up. Telemetry. -Bradycardia reported. Note patient's both on Toprol-XL and Coreg. Corrected Beta ruben dose cut back. -Persistent atrial fibrillation. uncontrolled. Telemetry. We will give an excellent dose of Lopressor 12.5 mg. Increase Lopressor to 25 mg twice a day. -Acute kidney injury the patient's creatinine being 0.72, February 2021. Follow labs -Hypotension, possibly from kidney injury: Better Received IV fluids -Moderate mitral regurgitation, moderate tricuspid regurgitation, moderate pulmonary regurgitation Follow clinically -Secondary pulmonary hypertension due to CHF Follow clinically -Major cognitive impairment from late onset Alzheimer's dementia -Essential hypertension Currently Lopressor 25 mg twice a day -Possible right pulmonary contusion, secondary to fall/trauma Incentive spirometry. -Acute on Chronic congestive heart failure from systolic dysfunction EF 25-30 %: Better Aldactone 12.5 mg by mouth daily. Cutback Bumex 0.5 mg twice a day -Diabetes mellitus type 2, oral hypoglycemic Follow Accu-Cheks. Januvia 50 mg a day Lopressor increased to 25 mg twice a day. Cutback Bumex to 0.5 mg twice a day. Encourage oral intake. Keep patient on telemetry. Gentle hydration for a few hours today. Repeat labs in the morning.
[2021-10-30 21:17] LABS: Glucose,Whole Blood 119 mg/dL (75-99)
[2021-10-30] MEDS: METOPROLOL TARTRATE 25 MG TAB PO SCH (21:23)
[2021-10-30] MEDS: BUMETANIDE 0.5 MG TABLET PO SCH (21:47)
[2021-10-31 04:11] VITALS: RESP 18
[2021-10-31 07:28] LABS: Glucose,Whole Blood 132 mg/dL (75-99)
[2021-10-31 07:52] LABS: African American GFR (CKD) 50 (>60 ml/min/1.73 sqM); Anion Gap 10 mmol/L; Blood Urea Nitrogen 30 mg/dL (7-17); Calcium 8.8 mg/dL (8.4-10.2); Carbon Dioxide 24 mmol/L (22-30); Chloride 111 mmol/L (98-107); Glucose 144 mg/dL (74-99); Non-African American GFR(CKD) 44 (>60 ml/min/1.73 sqM); Potassium 3.5 mmol/L (3.5-5.1); Sodium 145 mmol/L (137-145)
[2021-10-31 08:04] VITALS: BP 132/89; PULSE 110; TEMP 98
[2021-10-31] MEDS: AMIODARONE 200 MG TAB PO SCH (08:55)
[2021-10-31] MEDS: BUMETANIDE 0.5 MG TABLET PO SCH (08:55)
[2021-10-31] MEDS: METOPROLOL TARTRATE 25 MG TAB PO SCH (08:55)
[2021-10-31] MEDS: VENLAFAXINE HCL ER 75 MG CAP PO SCH (08:55)
[2021-10-31] MEDS: ESCITALOPRAM 10 MG TAB PO SCH (08:55)
[2021-10-31] MEDS: LINAGLIPTIN 5 MG TABLET PO SCH (08:55)
[2021-10-31] MEDS: SPIRONOLACTONE 25 MG TAB PO SCH (08:55)
[2021-10-31] MEDS: LEVOTHYROXINE 25 MCG TAB PO SCH (08:56)
[2021-10-31] MEDS: INSULIN ASPART (NovoLOG) 100 UNIT/ML VIAL SQ SCH ×2 (08:56→14:12)
[2021-10-31 11:07] LABS: Glucose,Whole Blood 142 mg/dL (75-99)
--- NOTE | 2021-10-31 13:16 | P.PN ---
Progress Note - Text Progress Note Date: 10/31/21 The patient maintained stable. There are no acute changes. On exam vital signs are stable. Chest clear. Patient is stable for discharge from general surgery standpoint
[2021-10-31] MEDS: BACITRACIN ZINC 500 UNIT/GM OINT 28.4 GM TUBE TOPICAL SCH (14:11)
--- NOTE | 2021-10-31 20:43 | P.DS ---
Providers Date of admission: 10/29/21 15:48 Expected date of discharge: 10/31/21 Attending physician: George Fernandes Consults: 10/27/21 17:47 Consult Physician Routine Consulting Provider: Jame Gonzales Consult Reason/Comments: multiple right rib fractures Do you want consulting provider notified?: Yes 10/29/21 14:55 Consult Physician Routine Consulting Provider: Nora Hicks Consult Reason/Comments: Possible hemothorax, rib fractures, fall Do you want consulting provider notified?: Yes 10/29/21 14:56 Consult Physician Routine Consulting Provider: Virginia Mir Consult Reason/Comments: possible hemothorax, trauma Do you want consulting provider notified?: Yes Primary care physician: [facility] Course: Chief Complaint: Low heart rate This is a 76-year-old patient who follows with visiting physicians Dr. Bonilla. Chronic stable medical conditions include CAD with history of bypass, CHF, dementia, diabetes, hypertension, hyperlipidemia. Patient is at [facility] home. Patient was sent in by her cut off man Dr. Luo after the patient was found to have a low blood pressure and low heart rate. Patient had a syncopal episode yesterday that resulted to the cut off man visit. Patient denied any dizziness or lightheadedness. It may be noted because of dementia patient is a poor historian. Blood pressure at the [facility] home was 88/53. Patient really cannot give much of history except for simple questions. Denies any shortness of breath or cough no fever no chills. Appetite is good. Admitted with hypotension, bradycardia from beta blockers acute kidney injury, acute kidney injury from decreased oral intake,. Patient is dose of beta blockers cutback. Mobic was held. Bumex interval held. IV fluids. Given IV Bumex for fluid overload. Does of Lopressor adjusted. Bumex adjusted. October 31: Patient stable. Breathing stable. Heart rate controlled. Patient has a baseline does not eat much. Will be discharged. Given that patient is not bradycardic and stable risk of fall therefore is now minimal as she was symptomatic which should come in. Hence anticoagulation to be given. If further falls or clinical situation changes than anticoagulation may have to be held. Discussion and discharge planning more than 35 minutes Consultation: Dr. Gonzales from surgery Dr. Hicks from pulmonary Dr. MARIA INES Lucas from cardiology Past medical history to include: CAD with bypass, CHF, dementia, diabetes, hypertension, hyperlipidemia, ulcers, Social history: Lives at [facility]. Patient smoked for about 50 years stopped in 2009. No alcohol reported. Family history: Breast cancer Physical examination: VITAL SIGNS: 98, 100, 18, 132/89, 97% room air GENERAL: sitting up, awake, comfortable. EYES: Pupils equal. Conjunctiva normal. HEENT: External appearance of nose and ears normal, oral cavity grossly normal. NECK: JVD raised; masses not palpable. HEART: Heart sounds irregular; no edema. LUNGS: Respiratory rate normal; decreased breath sounds. ABDOMEN: Soft, nontender, liver spleen not palpable, no masses palpable. PSYCH: Patient does not know where she is. She thinks his 1944. Does not know why she is here. She is able to answer simple questions MUSCULOSKELETAL:No Clubbing/cyanosis;muscles-grossly intact. Evidence of OA INVESTIGATIONS, reviewed in the clinical context: October 31: Creatinine 1.2 potassium 3.5 October 30: White count 9.5 hemoglobin 12.8 potassium 4.3 BUN 31 creatine 1.39 Chest x-ray film: Right lower lobe infiltrate can be compatible pulmonary contusion. Rib deformity. October 28: Sodium 142 potassium 3.9 BUN 23 creatinine 1.27 2-D echocardiogram: EF 25-30% moderate aortic stenosis. Moderate MR. Moderate TR. Moderate pulmonary hypertension. Moderate [place] White count 6.8 hemoglobin 12 platelets 249 sodium 140 potassium 2.6 BUN 30 creatinine 1.45 Troponin I 0.017 Coronavirus [PCR]: Not detected EKG tracing personally reviewed by me-atrial fibrillation. ST segment depression in leads V4 to V6 possibly one aVF. Chest x-ray film personally reviewed by [id number]-ghrsx rib fractures. Possible atelectasis. Previous labs: Creatinine 0.72 on February 2021 Assessment and plan: -Patient is found to be hypotensive and bradycardic outpatient. Causing falls. Corrected. -Bradycardia reported. Note patient's both on Toprol-XL and Coreg. Corrected Beta ruben dose cut back. -Persistent atrial fibrillation.: controlled Lopressor to 25 mg twice a day. -Acute kidney injury, prerenal the patient's creatinine being 0.72, February 2021. Follow labs -Right rib fractures on the eighth and ninth rib, secondary to fall. Symptoms well controlled -Hypotension, possibly from kidney injury: Better Received IV fluids -Moderate mitral regurgitation, moderate tricuspid regurgitation, moderate pulmonary regurgitation Follow clinically -Secondary pulmonary hypertension due to CHF Follow clinically -Major cognitive impairment from late onset Alzheimer's dementia -Essential hypertension Currently Lopressor 25 mg twice a day -Possible right pulmonary contusion, secondary to fall/trauma Incentive spirometry. -Acute on Chronic congestive heart failure from systolic dysfunction EF 25-30 %: Better Aldactone 12.5 mg by mouth daily. Bumex 0.5 mg twice a day -Diabetes mellitus type 2, oral hypoglycemic Follow Accu-Cheks. Januvia 50 mg a day Disposition: Assisted-living. [facility] Patient Condition at Discharge: Fair Plan - Discharge Summary Discharge Rx Participant: No New Discharge Prescriptions: New Spironolactone [Aldactone] 25 mg PO DAILY #30 tab Bumetanide 0.5 mg PO BID #60 tablet Continue Amiodarone [Cordarone] 200 mg PO DAILY@0800 Escitalopram Oxalate [Lexapro] 10 mg PO DAILY@0800 Bacitracin Zinc Oint 1 applic TOPICAL DAILY@0800 Apixaban [Eliquis] 5 mg PO BID@0800,1999 sitaGLIPtin PHOSPHATE [Januvia] 50 mg PO DAILY@0800 Acetaminophen [Tylenol] 500 mg PO BID PRN PRN Reason: Pain Albuterol Inhaler [Ventolin Hfa Inhaler] 2 puff INHALATION RT-QID PRN PRN Reason: Shortness Of Breath Levothyroxine Sodium [Synthroid] 25 mcg PO DAILY@0700 Metoprolol Succinate [Toprol XL] 25 mg PO BID@08,1999 polyethylene glycoL 3350 [Miralax] 17 gm PO DAILY PRN PRN Reason: Constipation Venlafaxine HCl [Effexor XR] 75 mg PO DAILY@0800 Discontinued Memantine [Namenda] 10 mg PO BID@799,1999 Bumetanide [Bumex] 1 mg PO BID-W/MEALS Meloxicam [Mobic] 7.5 mg PO DAILY PRN PRN Reason: Pain Donepezil [Aricept] 10 mg PO HS@2000 Amoxicillin 2,000 mg PO ONCE PRN PRN Reason: dental appointments Acetaminophen Tab [Tylenol Tab] 1,000 mg PO Q8H PRN PRN Reason: Pain Carvedilol [Coreg] 12.5 mg PO BID@0800,1700 PRN PRN Reason: hold if BP <100 Docusate [Colace] 100 mg PO BID PRN PRN Reason: Constipation Lisinopril [Prinivil] 10 mg PO DAILY@0800 Discharge Medication List Apixaban [Eliquis] 5 mg PO BID@08,199902/08/21 [History] Amiodarone [Cordarone] 200 mg PO DAILY@0806/08/21 [History] sitaGLIPtin PHOSPHATE [Januvia] 50 mg PO DAILY@0806/08/21 [History] Acetaminophen [Tylenol] 500 mg PO BID PRN 10/27/21 [History] Albuterol Inhaler [Ventolin Hfa Inhaler] 2 puff INHALATION RT-QID PRN 10/27/21 [History] Bacitracin Zinc Oint 1 applic TOPICAL DAILY@79910/27/21 [History] Escitalopram Oxalate [Lexapro] 10 mg PO DAILY@79910/27/21 [History] Levothyroxine Sodium [Synthroid] 25 mcg PO DAILY@0710/27/21 [History] Metoprolol Succinate [Toprol XL] 25 mg PO BID@08,199910/27/21 [History] Venlafaxine HCl [Effexor XR] 75 mg PO DAILY@79910/27/21 [History] polyethylene glycoL 3350 [Miralax] 17 gm PO DAILY PRN 10/27/21 [History] Bumetanide 0.5 mg PO BID #60 tablet 10/31/21 [Rx] Spironolactone [Aldactone] 25 mg PO DAILY #30 tab 10/31/21 [Rx] Follow up Appointment(s)/Referral[facility]s): [facility] [[facility] - 1-2 Days Zeb Luo DO [STAFF PHYSICIAN] - 1 Week Jay Bonilla MD [Primary Care Provider] - 1-2 days
== END 2021-10-31 14:31 | disposition home or self-care (01) | DRG 308 ==
LOC: EC 14:31 → 6NMEDSUR 17:58 → OBSVTOIN 10-29 15:48
PROVIDERS: ADMIT Hospitalist; ATTEND Hospitalist
DX: R00.1 Bradycardia, unspecified (principal); N17.0 Acute kidney failure with tubular necrosis; I50.23 Acute on chronic systolic (congestive) heart failure; S22.41XA Multiple fractures of ribs, right side, initial encounter for closed fracture; J98.11 Atelectasis; S27.321A Contusion of lung, unilateral, initial encounter; I95.9 Hypotension, unspecified; E11.9 Type 2 diabetes mellitus without complications; E78.5 Hyperlipidemia, unspecified; E87.6 Hypokalemia; F02.80 Dementia in other diseases classified elsewhere, unspecified severity, without behavioral disturbance, psychotic disturbance, mood disturbance, and anxiety; G30.1 Alzheimer's disease with late onset; I08.3 Combined rheumatic disorders of mitral, aortic and tricuspid valves; I11.0 Hypertensive heart disease with heart failure; I25.10 Atherosclerotic heart disease of native coronary artery without angina pectoris; I25.2 Old myocardial infarction; Z20.822 Contact with and (suspected) exposure to COVID-19; I65.29 Occlusion and stenosis of unspecified carotid artery; I27.29 Other secondary pulmonary hypertension; I37.1 Nonrheumatic pulmonary valve insufficiency; I48.0 Paroxysmal atrial fibrillation; I45.4 Nonspecific intraventricular block; M19.90 Unspecified osteoarthritis, unspecified site; I48.19 Other persistent atrial fibrillation; J43.9 Emphysema, unspecified; M95.4 Acquired deformity of chest and rib; R29.6 Repeated falls; T44.7X5A Adverse effect of beta-adrenoreceptor antagonists, initial encounter; W19.XXXA Unspecified fall, initial encounter; Z79.01 Long term (current) use of anticoagulants; Z79.1 Long term (current) use of non-steroidal anti-inflammatories (NSAID); Z79.84 Long term (current) use of oral hypoglycemic drugs; Z79.890 Hormone replacement therapy; Z79.899 Other long term (current) drug therapy; Z80.3 Family history of malignant neoplasm of breast; Z87.891 Personal history of nicotine dependence; Z95.1 Presence of aortocoronary bypass graft; Z95.5 Presence of coronary angioplasty implant and graft; Z88.7 Allergy status to serum and vaccine; Z88.8 Allergy status to other drugs, medicaments and biological substances
CPT/HCPCS: 36415; 71045; 71046; 80048; 80053; 81001; 83735; 83880; 84439; 84443; 84484; 85025; 85027; 85610; 85730; 87635; 93005; 93306; 99285